=== PATIENT | female | born 1945 | race Caucasian/White ===

== ENCOUNTER 2019-08-04 10:48 | Outpatient (CLI) | payer MEDICARE, OTHER, SELFPAY ==
--- NOTE | 2019-08-04 11:06 | MM_ITS ---
WS: [id number] BILATERAL DIGITAL DIAGNOSTIC MAMMOGRAM MAMMOGRAPHY WITH CAD CLINICAL INFORMATION: HX OF BREAST CA COMPARISON: August 02, 2018 TECHNIQUE: Bilateral CC, MLO, and ML views. FINDINGS: Scattered fibroglandular densities bilaterally. Prior postoperative changes upper outer right breast. No suspicious focal mass, asymmetry, calcifications, or architectural distortion. No evidence of ruthy gnancy. MM/[place] [id number] IMPRESSION: BI-RADS: 2-Benign FOLLOW UP: 1 Year Follow-up Recommend return to annual screening mammography.
== END 2019-08-04 10:49 | disposition home or self-care (01) ==
LOC: RADSHAW 10:54
PROVIDERS: Family Provider Family Medicine; PCP Family Medicine; Visit Provider Internal Medicine Hematology & Oncology
DX: Z85.3 Personal history of malignant neoplasm of breast (principal)
CPT/HCPCS: 77066

== ENCOUNTER 2019-12-14 07:00 | Outpatient (CLI) | payer MEDICARE, OTHER, SELFPAY ==
--- NOTE | 2019-12-14 07:13 | CT_ITS ---
WS: [id number] CT CHEST WITHOUT INTRAVENOUS CONTRAST HISTORY: Pulmonary nodule follow-up. History of breast cancer. TECHNIQUE: Contiguous 5 mm axial imaging performed on the thorax. Coronal and sagittal reformats are submitted. All CT scans at [facility] use at least one of these dose optimization techniq ues: automated exposure control; mA and/or kV adjustment per patient size (includes targeted exams wh ere dose is matched to clinical indication); or iterative reconstruction. CONTRAST: None DLP: 801.62 mGy.cm COMPARISON: 05/09/2019, 11/08/2018 and 11/02/2017, PET/CT 05/27/2019 Lungs and central airway: Increasing lobulated solid mass in the central RIGHT upper lobe now measure s 1.6 x 1.3 x 1.3 cm. This was positive on the PET/CT of 05/27/2019 but has significantly increased i n size. This central nodule is very close to the central segmental bronchi with encasement of adjacen t bronchi and pulmonary structures. The subsolid nodule described in the periphery of the RIGHT lower lobe continues to slowly increase in size now measuring maximum diameter of 1.5 cm. New subsolid nod ule measuring 7 mm in the central RIGHT upper lobe, image 24 series 3. There are additional scattered subsolid nodules which are very vague in the upper lobes bilaterally and not increasing in size. Sta ble 4 mm nodule, image 23 of series 3 in the RIGHT upper lobe. Pleura: Normal. No pleural effusion. Heart and pericardium: Normal size heart. No pericardial effusion. Mediastinum and katrina: RIGHT inferior paratracheal lymph node 11 mm is unchanged. No enlarging or new lymph nodes. Vessels: Ectatic atherosclerosis of the aorta. Ascending aorta measures 4.1 cm. Chest wall and lower neck: No soft tissue masses. Upper abdomen: Hepatic steatosis. Decreased attenuation nodule in the posterior RIGHT upper lobe albert ures 11 mm and stable. No adrenal mass. Osseous structures: Advanced degenerative spondylitic changes throughout the thoracic spine. CT/CT chest wo con [id number] IMPRESSION: 1. Significant increase in size of the central RIGHT upper lobe mass since the PET/CT of 05/27/2019 now measuring 1.6 x 1.3 x 1.3 cm. Consistent with a neopl asm. 2. Slight increase in size of the subsolid nodule previously described in the RIGHT lower lobe now with a maximum diameter of 1.5 cm. Increased in size from 0.8 cm. 3. New subsolid nodule RIGHT upper lobe measures 7 mm. Suspicious for neoplasm or metastatic disease. 4. Additional scattered subcentimeter and some solid nodules bilaterally are s table. 5. Chronic emphysema. 6. No adrenal mass. 7. No adenopathy.
[2019-12-14 08:33] VITALS: O2SAT 95
--- NOTE | 2019-12-14 09:47 | PFTS_ITS ---
Date of Study:12/14/19 Date of Dictation: MECHANICS: Forced vital capacity (FVC) is reduced. Forced expiratory volume in one second (FEV1) is reduced. FEV1/FVC is reduced. FLOW VOLUME LOOP: Reduced flow at all lung volumes with significant scooping. LUNG VOLUMES: Total lung capacity (TLC) is normal. Residual volume (RV) is increased. DIFFUSING CAPACITY FOR CARBON MONOXIDE: Mild reduced. INTERPRETATION: The pulmonary function tests are consistent with moderate obstruction. There is significant postbronchodilator response. Lung volumes are consistent with air trapping. Gas exchange (DLCO) is mildly reduced. MTDD
== END 2019-12-14 07:01 | disposition home or self-care (01) ==
PROVIDERS: PCP Family Medicine; Visit Provider Internal Medicine Critical Care Medicine
DX: J44.9 Chronic obstructive pulmonary disease, unspecified (principal); R91.8 Other nonspecific abnormal finding of lung field
CPT/HCPCS: 71250; 94060; 94726; 94729; J7611

== ENCOUNTER 2020-01-03 06:04 | Day surgery (SDC) | payer MEDICARE, OTHER, SELFPAY ==
[2020-01-02 08:00] VITALS: BMI 32.3
--- NOTE | 2020-01-03 | CT_ITS ---
Guided Bronchoscopy Planning CT images; total exam DLP: 579.97 mGy-cm MTDD
[2020-01-03 06:22] VITALS: BP 128/72; PULSE 64; RESP 18; TEMP 36.2; O2SAT 93
[2020-01-03] MEDS: sodium chloride 0.9% 1,000 ML 30 ML IV (06:30)
--- NOTE | 2020-01-03 06:34 | P.ANESASSM_ITS ---
Pre-Anesthetic Assessment Pre-Anesthetic Assessment: Height/Weight: Height 1.68 m Weight 90.718 kg Temp Pulse Resp BP Pulse Ox 97.2 F L 64 18 128/72 93 01/03/20 06:22 01/03/20 06:22 01/03/20 06:22 01/03/20 06:22 01/03/20 06:22 Preop Diagnosis: Suspected lung cancer Proposed Procedure: Operation Date: 01/03/20 07:00 Proposed Procedures p Antonio(Not Applicable) - Biplab MD Nyasia Familial anesthetic complications: None Was Beta Randy taken within 24 hours: N/A Last intake: Intake Last Liquid Date 01/02/20 Last Liquid Time 22:00 Last Solid Date 01/02/20 Last Solid Time 22:00 Social: Social History: Tobacco Exam: Pre-Anes Outpt Exam: alert, oriented x 3, clear to auscultation bilaterally and regular rate & rhythm Airway: Cervical ROM: WNL MP: 3 Dentition: False Pulmonary: Pulmonary: COPD (oxygen prn 2 L NC) and Sleep apnea (bipap) CV/HEM: CV/HEM: HTN : : None reported Hepatic: Hepatic: None reported GI: GI: None reported Metabolic: Metabolic: DM Musc/skel: Musc/skel: None reported Comments: bone grows between the discs in my back Neuropsych: Neuropsych: None reported Anesthetic Plan: ASA status: 3 Anesthesia: General Risk of > 500 ml blood loss (7ml/kg in children): No PFSH Anesthesia PFSH: Medical History (Updated 01/02/20 @ 08:03 by [employer] Lung nodule Social History (Updated 01/02/20 @ 08:03 by [employer] Smoking and tobacco status: current every day smoker cigarettes Packs smoked per day: 1 Data Anesthesia Cardiac Studies: No Data to Display
[2020-01-03 06:37] LABS: Glucose Point of Care 132 mg/dL (70-110)
--- NOTE | 2020-01-03 06:38 | W.PM.OPSFHP ---
Same Day Surgery H&P Indication for Procedure/HPI DATE OF PROCEDURE: January 03, 2020 CHIEF COMPLAINT/INDICATIONFOR SURGICAL PROCEDURE: 74-year-old lady coming in for enlarging right upper lobe pulmonary nodule with PET positivity for bronchoscopic evaluation. The patient underwent scheduled CT scan in December 2019 as a six-month follow-up and was found to have an enlarging right upper lobe pulmonary nodule. This was followed up with a PET scan which was positive. The patient was scheduled to undergo the procedure in mid December however because of an episode of upper respiratory tract infection the procedure was canceled. PREOP DIAGNOSIS: Suspected lung cancer PLANNED PROCEDRUE: Bronchoscopy with inspection of the airway, navigational bronchoscopy guided fine-needle aspiration and transbronchial biopsies of the right upper lobe nodule, endobronchial ultrasound-guided transbronchial aspiration of lymph nodes, control of bleeding. Operation Date: 01/03/20 07:00 Proposed Procedures p Vernicol(Not Applicable) - Shaila Murrell MD The patient underwent scheduled CT scan in December 2019 as a six-month follow-up and was found to have an enlarging right upper lobe pulmonary nodule. This was followed up with a PET scan which was positive. The patient was scheduled to undergo the procedure in mid December however because of an episode of upper respiratory tract infection the procedure was canceled. The patient denies any fever, night sweats, chills, orthopnea or proximal nocturnal dyspnea. She has chronic cough with sputum production. No significant wheezing and no resting shortness of breath. Medications/Allergies* Home Medications Medication Instructions Recorded Confirmed Type albuterol sulfate [ProAir HFA] 1 inh INHALATION BID 12/20/19 01/03/20 History amlodipine 5 mg PO DAILY 12/20/19 01/03/20 History metformin 500 mg PO DAILY 12/20/19 01/03/20 History sitagliptin [Januvia] 100 mg PO DAILY 12/20/19 01/03/20 History gabapentin 300 mg PO PRN PRN 01/02/20 01/03/20 History [id number]-[id number] 1 ea INHALATION DAILY 01/03/20 01/03/20 History [Trelegy Ellipta] Allergies/Adverse Reactions Allergy/AdvReac Type Severity Reaction Status Date / Time No Known Allergies Allergy Verified 01/03/20 06:41 Pertinent History/Comorbid Conditions* Medical History (Updated 12/14/19 @ 16:07 by Shaila Murrell MD) Lung nodule Hypertension Diabetes mellitus type 2 Social History Smoking and tobacco status: current every day smoker cigarettes Packs smoked per day: 1 Pertinent Exam Findings alert, oriented x 3, clear to auscultation bilaterally and regular rate & rhythm No abdominal tenderness, positive bowel sound No skin rash or joint abnormalities Recommendations Surgery/Procedure today Other Plans: The patient is going to undergo navigational bronchoscopy guided right upper lobe pulmonary nodule biopsies for possible lung cancer. Coding Level of Care Code Acute Medical Assistant Dermatology for [facility]
[2020-01-03] MEDS: lidocaine 1% INJ 20 mL XX (07:31)
--- NOTE | 2020-01-03 08:48 | PM.OP ---
Operative Report Date of procedure: January 03, 2020 Pre-op Diagnosis: Suspected lung cancer Post-op diagnosis: same Brief History: 74-year-old lady coming in with enlarging right upper lobe nodule which is PET positive for suspected lung malignancy. Procedure: Name of the procedure: Bronchoscopy with inspection of the airway, bronchoalveolar lavage, endobronchial ultrasound-guided transbronchial needle aspiration of lymph nodes, navigational bronchoscopy guided fine-needle aspiration of the right upper lobe pulmonary nodule and control of bleeding. Indication: Suspected lung cancer Anesthesia: General anesthesia. Local anesthesia: The shamar in the right and left mainstem bronchi were anesthetized with 1% lidocaine, 3 mL. Description of the procedure: The procedure was explained to the patient and the consent was obtained. The patient was brought to the OR. The patient underwent endotracheal intubation for general anesthesia. Following induction of general anesthesia, the bronchoscope was advanced through the ET tube. The lower trachea appeared to be normal. The shamar was sharp. The shamar, the right and left mainstem bronchi are anesthetized with 1% lidocaine. In a systematic manner bilateral bronchial tree was then examined. The bronchoscope was advanced into the left mainstem bronchus. The left upper lobe, lingula and left lower lobe bronchi were examined up to the third subsegmental level and no abnormalities were identified. There is no endobronchial lesion, active bleeding or mucous plug. The bronchoscope was then introduced into the right mainstem bronchus. The right upper lobe, right middle lobe and right lower lobe bronchi were examined up to the third subsegmental level and no abnormalities were identified. There was mucus throughout the lung. Using navigational bronchoscopy fine-needle aspiration of the right upper lobe nodule was performed. Multiple samples were obtained. Bronchoalveolar lavage was performed from the apical segment of right upper lobe. 60 mL of saline was instilled 10 mL of bloody fluid return. The endobronchial ultrasound was introduced through the ET tube. Transbronchial needle aspiration was performed from station 7 and 10. Samples: 1. Bronchoalveolar lavage specimen was sent for cytology. 2. The right upper lobe pulmonary nodule fine-needle aspiration was sent for cytology. 3. The transbronchial needle aspiration of the aforementioned lymph node groups were sent for cytology Complications: There was no immediate complications. The patient was extubated and brought to the PACU in stable condition. Chest x-ray: Pending Follow-up: 1. Please follow-up with me in 2 weeks time.
--- NOTE | 2020-01-03 08:53 | XR_ITS ---
WS: [id number] CHEST XRAY TECHNIQUE: Portable chest. CLINICAL INFORMATION: post bronchoscopy COMPARISON: January 17, 2018 FINDINGS: Heart: Cardiomegaly. Aortic calcification. Lungs: Chronic emphysematous changes with interstitial thickening unchanged from previous. No acute p ulmonary infiltrates. No focal pneumonia. No consolidation pleural fluid. Bones: Normal visualized bony structures. XR/XR chest 1V portable [id number] IMPRESSION: 1. Stable cardiomegaly. 2. Chronic emphysematous changes with interstitial thickening is stable. 3. No acute pulmonary infiltrates. 4. No pneumothorax
[2020-01-03 08:57] VITALS: BP 146/83; PULSE 82; RESP 20; TEMP 36.5; O2SAT 92
--- NOTE | 2020-01-03 09:02 | SUR.OPER ---
EBUS BALLOON REMOVED INTACT.
[2020-01-03 09:03] VITALS: PULSE 62; RESP 16; O2SAT 98
[2020-01-03 09:08] VITALS: PULSE 60; RESP 16; TEMP 36.5; O2SAT 95
[2020-01-03 09:22] VITALS: BP 104/69; PULSE 64; RESP 18; O2SAT 94
[2020-01-03 09:45] VITALS: BP 98/55; PULSE 51; RESP 18; O2SAT 95
== END 2020-01-03 09:52 | disposition home or self-care (01) ==
PROVIDERS: PCP Family Medicine; Visit Provider Internal Medicine Critical Care Medicine
PROC: 0BJ08ZZ Inspection of Tracheobronchial Tree, Via Natural or Artificial Opening Endoscopic (ICD-10-PCS; CPT 31622; principal; 2020-01-03 07:00)
PROC: BB4BZZZ Ultrasonography of Pleura (ICD-10-PCS; 2020-01-03 07:00)
DX: R91.8 Other nonspecific abnormal finding of lung field (principal); E11.9 Type 2 diabetes mellitus without complications; I10 Essential (primary) hypertension; Z79.84 Long term (current) use of oral hypoglycemic drugs; F17.210 Nicotine dependence, cigarettes, uncomplicated; J44.9 Chronic obstructive pulmonary disease, unspecified; G47.30 Sleep apnea, unspecified; Z99.81 Dependence on supplemental oxygen
CPT/HCPCS: 12345; 31625; 31627; 36416; 71045; 77011; 80500; 82962; 88112; 88173; 88305; J2001; J2704; J2710; J3010; J3490; J7030

== ENCOUNTER 2020-01-18 08:18 | Outpatient (CLI) | payer MEDICARE, OTHER, SELFPAY ==
--- NOTE | 2020-01-24 15:43 | ONC FU_ITS ---
Dr. 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 She underwent a right partial mastectomy by Dr. Neely on 07/12/2012. Her surgical pathology showed a 1.2 cm high-grade DCIS, ER negative, GA negative, HER-2/florian negative. She then received 6080 cGy adjuvant radiation treatment, completed on 09/29/2012. She did not receive hormonal chemoprevention. She was seen initially by Dr. Small on 08/08/2015 . Her last mammogram was 06/21/2015, BI-RADS 2c. She indicated that her prior primary care doctor, Dr. Reis, had been concerned about a solitary pulmonary nodule that reportedly was seen on a CT scan in January 2015. She is being followed on observation/expectant management. Her other medical illnesses include hypertension, type II diabetes, COPD, obstructive sleep apnea, degenerative arthritis, and anxiety/depression. She has a history of smoking 1 pack of cigarettes daily. Surveillance CT scan of the chest on 04/16/2016 showed a 5 mm right upper lobe pulmonary nodule which appeared stable since 2014. CT scan chest done on 02/02/2017 showed multiple noncalcified nodules in the right upper lobe 3 mm nodule right lower lobe semisolid 6 mm right lower lobe nodule and CT scan finding were discussed with Dr. Massey today and he said he don't see any significant difference when compared with CT scan of chest on 04/16/2016 except 3 mm nodule right lower lobe which is new CT scan of the chest done on 11/08/[address] scan of chest done on 11/02/2017 and 02/02/2017 showed stable right upper lobe 4 mm nodule. And slight increase in size of right lower lobe opacification/groundglass attenuation since 11/02/2017, one of the nodule has become more solid measuring 7.7 mm could be post inflammatory but early neoplastic changes should be considered. Chronic emphysema no lymphadenopathy follow-up CT scan chest recommended in 3-6 months. Follow-up Mammogram done in June 2018, was benign CT chest was done on 05/09/2019 showed semisolid groundglass nodule in the right lower lobe laterally measuring 8mm slightly more prominent compared to 11/08/2018 and definitely increased since 11/02/2017, increase in sizes suspicious for neoplasm and Patient was referred to Dr. Galo for right lower lobe lung nodule and Dr. Galo order CT PET scan which was done on May 27, 2019 showed there is a 9 mm nodule in the central right upper lobe with SUV of 4.5 and has a high probability of malignancy biopsy was recommended. 2 semisolid nodules in the lateral right lower lobe are FDG negative and dominant nodule measured 0.8 x 1.4 cm, Dr. Galo referred her to Dr. Murrell programs manager who did evaluation and patient underwent follow-up CT scan of chest on December 14, 2019 which showed increasing lobulated solid mass in the central right upper lobe of the lung which measures 1.6 x 1.3 x 1.3 cm compared to 0.9 cm in May 2019 and right lower lobe nodule also continues to slowly increase in size measured 1.5 cm. And new sub-solid nodule measuring 7 mm in the central right upper lobe. Subsequently on December 16, [address] PET scan which confirmed central right upper lobe nodule measuring 1.4 cm with SUV of 15.7 compared to 0.9 cm with SUV of 4.5 seen on May 27, 2019 CT PET scan and semisolid nodule in the right lower lobe is unchanged in size and remained FDG negative. There is a new solid 8 mm nodule in the right upper lobe, too small to characterize with FDG imaging. Patient underwent bronchoscopy on January 03, 2020 and multiple samples were obtained including station 7 lymph node station 10 R lymph node, right upper lobe and all of them came back negative for malignancy Came for follow-up, denies any specific complaints, no hemoptysis no hematemesis, no nausea no vomiting no diarrhea no constipation, no headaches, no shortness of breath, no jaundice, still smoke about a pack a day. Patient recently underwent bronchoscopy for progressive right upper lobe lung nodule and that report came back negative for malignancy Medications: Aleve Capsule Oral, AmLODIPine Besylate 1 Tablet (of 5 mg) Oral daily, Bystolic 1 Tablet (of 5 mg) Oral daily, Gabapentin 1 Capsule (of 300 mg) Oral b.i.d., Januvia 1 Tablet (of 100 mg) Oral daily, Lidoderm 1 patch(es) (of 5 %) Patch Topical daily, Sertraline HCl 1 Tablet (of 50 mg) Oral daily, Trelegy Ellipta 1 Puff(s) (of 100-62.5-25 mcg/inh) Aerosol Powder, Breath Activated Inhalation daily, Voltaren 2 G (of 1 %) Gel (jelly) Transdermal b.i.d. Allergies: Zostavax Review of Systems: Constitutional - She does have some fatigue, ENMT - No problems with hearing, no sore throat, no sinus drainage, Hematologic/Lymphatic - No abnormal bruising or bleeding, Respiratory - No shortness of breath, no cough, Cardiovascular - No angina pain. No palpitations, Gastrointestinal - No nausea, vomiting, diarrhea, GI bleeding, or constipation. No change in bowel habits, no heartburn or early satiety, Genitourinary (F) - No hematuria, dysuria, increased frequency, urgency, hesitancy or incontinence, Musculoskeletal - Pt reports chronic back pain, Integumentary - No chronic rashes, ulcerations or skin changes, Neurologic - No headache, blurred vision, and no areas of focal weakness or numbness. Normal gait. No sensory problems, Psychiatric - No anxiety or depression. No insomnia. Vital Signs: Vitals are not available for this patient. Performance Status: 1 - No physically strenuous activity, but ambulatory and able to carry out light or sedentary work (e.g. office work, light house work). (ECOG) Physical Examination: Respiratory - Lungs are clear, Cardiovascular - Regular rate and rhythm of heart, Gastrointestinal - Soft, bowel sounds present, Extremities - No visible edema. Lab/Imaging: Most recent lab results are not available for this patient. Impression: 1. Patient with high-grade ductal carcinoma in situ of the right breast, ER/GA negative. She underwent partial right mastectomy on 07/12/2012. 2. She was given radiation to the right breast, completed on 09/29/2012 to a total dose of 6080 cGy. She has since then been followed on observation/expectant management. 3. She was discovered to have a small right upper lobe pulmonary nodule by chest CT scan in January 2015. Thus far it has been stable on followup CT scans in September and April 2016. 4. CT scan done on 02/02/2017 showed multiple noncalcified nodules in the right upper lobe 3 mm nodule right lower lobe semisolid 6 mm right lower lobe nodule when compared with previous CT scan of chest from 04/16/2016 no significant change but new 3mm lesion in the right lower CT scan of chest done on 11/02/2017 showed, stable 4.5 mm nodule right upper lobe. So resolved previous lateral subpleural groundglass density right upper lobe laterally since 02/02/2017 Stable ill-defined groundglass densities in the lateral peripheral right lower lobe Chronic emphysema Oval nodule left adrenal gland without change suggestive of incidental adenoma measuring 1.5 cm Follow-up CT scan of chest done on 11/08/2018 showed long-term stability right upper lobe 4 mm nodule Slight increase in size of right lower lobe opacifications/groundglass attenuation since 11/02/2017. One of these nodule has become more solid measuring 7.7 mm. Could be postinflammatory but early neoplastic changes should be considered and follow-up CT scan in 3-6 month was recommended. Chronic emphysema No lymphadenopathy Her other medical illnesses include: 4. Hypertension. 5. Type II diabetes. 6. COPD. 7. Obstructive sleep apnea. 8. Degenerative arthritis. 9. Depression. 10. She has nicotine dependence (cigarettes). She appears stable clinically with no evidence of recurrence of the breast cancer. Plan: Discussed with patient regarding her CT PET scan report from December 16, [address] scan of the chest done on December 14, 2019 and bronchoscopy/biopsy reports, which showed no malignancy, could be due to missed target and other possibility could be chronic inflammation like sarcoidosis or chronic infection like fungal but malignancy is still on the top of the list. Case was also discussed with Dr. Murrell, programs manager this morning and Dr. Murrell recommended repeat bronchoscopy and try to get sample again from right upper lobe lung nodule as other options like CT-guided biopsy could be more invasive but less than surgical option. Other option will be observation and repeating CT scan or PET scan in 3 months and if there is a further progression then considering bronchoscopy or CT-guided biopsy or if new lesion with better accessibility. Dr. Murrell would call her back and discuss these options again, patient agreed for repeat bronchoscopy. If it shows malignancy, we will see her otherwise she will continue to follow-up with Dr. Murrell regarding pulmonary lesions and we will see her on as-needed basis Signed By: Roberto Meng M.D. <<Signature on File>>
== END 2020-01-18 08:19 | disposition home or self-care (01) ==
LOC: ONCMED 08:22
PROVIDERS: PCP Family Medicine; Visit Provider Internal Medicine Hematology & Oncology
DX: R91.1 Solitary pulmonary nodule (principal); Z85.3 Personal history of malignant neoplasm of breast; Z90.11 Acquired absence of right breast and nipple; Z92.3 Personal history of irradiation
CPT/HCPCS: 99214

== ENCOUNTER 2020-01-29 05:57 | Day surgery (SDC) | payer MEDICARE, OTHER, SELFPAY ==
[2020-01-26 11:02] VITALS: BMI 32.3
--- NOTE | 2020-01-29 | SC_ITS ---
Guided Bronchoscopy Planning CT images; total exam DLP: 800.09 mGy-cm MTDD
[2020-01-29] MEDS: sodium chloride 0.9% 1,000 ML 30 ML IV (06:30)
[2020-01-29 06:32] LABS: Glucose Point of Care 127 mg/dL (70-110)
[2020-01-29 06:38] VITALS: BP 152/83; PULSE 74; RESP 18; TEMP 36.6; O2SAT 96
--- NOTE | 2020-01-29 06:55 | W.PM.OPSUD ---
Surgery/Procedure H&P Update DATE OF PROCEDURE: January 29, 2020 DATE H&P PERFORMED: 01/03/20 H&P UPDATE INFORMATION: I have reviewed H&P completed within last 30 days, I have examined patient prior to procedure and No changes to prior documentation PREOP DIAGNOSIS: Suspected lung cancer PRIMARY INDICATION FOR PROCEDURE: 75-year-old lady with suspected right upper lobe lung cancer. PLANNED PROCEDURE: Bronchoscopy with inspection of the airway, navigational bronchoscopy guided fine-needle aspiration of right upper lobe lung nodule possible EBUS. Operation Date: 01/29/20 07:00 Proposed Procedures gage Alvarez(Not Applicable) - Shaila Murrell MD
--- NOTE | 2020-01-29 07:00 | ANES.PREANE2 ---
Pre-Anesthetic Assessment Pre-Anesthetic Assessment: Height/Weight: Height 1.68 m Weight 90.718 kg Preop Diagnosis: Suspected lung cancer Proposed Procedure: Operation Date: 01/29/20 07:00 Proposed Procedures gage Alvarez(Not Applicable) - Shaila Murrell MD Social: Social History: Tobacco and No alcohol Exam: Pre-Anes Outpt Exam: alert, oriented x 3 and regular rate & rhythm Additional Exam Findings (including area of procedure): BILAT WHEEZES Airway: Submandibular: WNL Cervical ROM: WNL MP: 1 Dentition: False (UPPER) and Other (TEETH [place]) History/ROS: No significant history except as noted Pulmonary: Pulmonary: COPD, MIRELES and Sleep apnea CV/HEM: CV/HEM: HTN : : None reported Hepatic: Hepatic: None reported GI: GI: GERD (controlled) Metabolic: Metabolic: DM and Morbid obesity Musc/skel: Musc/skel: Lower Back Pain and OA/DJD Neuropsych: Neuropsych: Neuropathy (feet) Anesthetic Plan: ASA status: 3 Anesthesia: Anesthesia Evaluation and General Risk of > 500 ml blood loss (7ml/kg in children): No PFSH Anesthesia PFSH: Medical History COPD (chronic obstructive pulmonary disease) History of COPD Hx of diabetes mellitus Hx of primary hypertension Lung nodule Surgical History Hx of bladder repair surgery Hx of carpal tunnel repair Hx of cataract extraction Hx of eye surgery Hx of hysterectomy Social History Smoking and tobacco status: current every day smoker cigarettes Packs smoked per day: 1 Data Anesthesia Other Labs: Laboratory Results - last 48 hr 01/29/20 06:25 POC Glucose 127 Cardiac Studies: No Data to Display
[2020-01-29] MEDS: lidocaine 1% INJ 20 mL XX (07:27)
--- NOTE | 2020-01-29 08:35 | P.OP_ITS ---
Operative Report Date of procedure: January 29, 2020 Pre-op Diagnosis: Suspected lung cancer Post-op diagnosis: same Brief History: 75-year-old lady with suspected right upper lobe lung cancer coming in for bronchoscopy evaluation Procedure: Name of the procedure: Bronchoscopy with inspection of the airway, bronchoalveolar lavage, navigational bronchoscopy guided fine-needle aspiration of the right upper lobe lung nodule. Control of bleeding Indication: Suspected lung cancer Anesthesia: General anesthesia. Local anesthesia: The shamar in the right and left mainstem bronchi were anesth etized with 1% lidocaine, 3 mL. Description of the procedure: The procedure was explained to the patient and the consent was obtained. The patient was brought to the OR. The patient underwent endotracheal intubation for general anesthesia. Following induction of general anesthesia, the bronchoscope was advanced through the ET tube. The lower trachea appeared to be normal. In a systematic manner bilateral bronchial tree was then examined. The bronchoscope was advanced into the left mainstem bronchus. There was no erythema,mucus or areas of cobblestoning. The left upper lobe, lingula and left lower lobe bronchi were examined up to the third subsegmental level and no abnormalities were identified. The bronchoscope was then introduced into the right mainstem bronchus. The right upper lobe, right middle lobe and right lower lobe bronchi were examined up to the third subsegmental level and no abnormalities were identified. Bronchoalveolar lavage was obtained from the right upper lobe apical segment. Using navigational bronchoscopy fine-needle aspiration was performed from the right upper lobe lung nodule. Samples: 1. The fine-needle aspiration was sent for cytology. 2. Bronchoalveolar lavage was sent for cytology. Complications: There was no immediate complications. The patient was extubated and brought to the PACU in stable condition. Follow-up: Please follow-up with me in 2 weeks time.
[2020-01-29 08:44] VITALS: BP 131/70; PULSE 76; RESP 22; TEMP 36.1; O2SAT 94
--- NOTE | 2020-01-29 08:47 | SUR.PHASEI ---
0844 PATIENT TO PACU FROM OR. RR EVEN AND UNLABORED. SPO2 94% ON NC AT 4L. PT DENIES PAIN.
--- NOTE | 2020-01-29 08:47 | SUR.OPER ---
EBUS SCOPE NOT USED
[2020-01-29 08:50] VITALS: BP 133/75; PULSE 76; RESP 18; O2SAT 95
[2020-01-29 08:55] VITALS: BP 121/68; PULSE 70; RESP 18; TEMP 36.3; O2SAT 95
[2020-01-29 08:56] VITALS: BP 114/67; PULSE 69; RESP 18; TEMP 36.1; O2SAT 93
--- NOTE | 2020-01-29 09:02 | SUR.PHASEI ---
0859 PATIENT TO OPS AT THIS TIME. RR EVEN AND UNLABORED. DENIES PAIN. PATIENT ASSISTED TO BSC IN OPS, GAIT STEADY.
[2020-01-29 09:40] VITALS: BP 122/68; PULSE 69; RESP 18; O2SAT 96
== END 2020-01-29 09:44 | disposition home or self-care (01) ==
PROVIDERS: PCP Family Medicine; Visit Provider Internal Medicine Critical Care Medicine
PROC: 0BJ08ZZ Inspection of Tracheobronchial Tree, Via Natural or Artificial Opening Endoscopic (ICD-10-PCS; CPT 31622; principal; 2020-01-29 07:00)
DX: R91.1 Solitary pulmonary nodule (principal); J44.9 Chronic obstructive pulmonary disease, unspecified; I10 Essential (primary) hypertension; K21.9 Gastro-esophageal reflux disease without esophagitis; E66.01 Morbid (severe) obesity due to excess calories; Z68.32 Body mass index [BMI] 32.0-32.9, adult; M19.90 Unspecified osteoarthritis, unspecified site; E11.40 Type 2 diabetes mellitus with diabetic neuropathy, unspecified; F17.210 Nicotine dependence, cigarettes, uncomplicated
CPT/HCPCS: 12345; 31625; 31627; 36416; 77011; 80500; 82962; 88112; 88173; 88305; J1100; J2405; J2704; J2710; J3010; J3490; J7030

== ENCOUNTER 2020-03-18 10:37 | Outpatient (CLI) | payer MEDICARE, OTHER, SELFPAY ==
--- NOTE | 2020-03-18 11:00 | CT_ITS ---
WS: [id number] CT CHEST TECHNIQUE: Noncontrast CT of the chest with coronal and sagittal reformatted images. CLINICAL INFORMATION: Lung nodule COMPARISON: CT chest December 14, [address] December 16, 2019 DLP: 1063.[address] scans at [facility] use at least one of these dose optimization techniques: automat ed exposure control; mA and/or kV adjustment per patient size (includes targeted exams where dose is matched to clinical indication); or iterative reconstruction. FINDINGS: FDG avid right upper lobe suprahilar neoplasm unchanged since December 14, 2019 measuring 1.4 x 1.4 CCM. However there are multiple new noncalcified nodules in both lungs worse in the upper lobes bilaterall y. Most of these are semisolid in appearance with the largest measuring 6 mm suspicious for metastati c disease. Stable 1.6 cm FDG negative semisolid opacity in the right lower lobe. Prominent anterior mediastinal lymph node measuring 11 mm unchanged. Aortic calcification. Coronary c alcification. Adrenal glands are normal. Low-attenuation lesion right hepatic lobe medially nonspecif ic but likely hepatic cyst appears unchanged. CT/CT chest wo con [id number] IMPRESSION: 1. Stable right suprahilar suspected neoplasm previously shown to be FDG posit esteban measuring 1.4 x 1.4 CM. 2. Numerous new pulmonary opacities bilaterally subcentimeter in size suspicio us for metastatic disease. Largest opacities measure 5 to 6 mm. 3. Stable prominent 11 mm anterior mediastinal lymph node. No progressed lymph adenopathy. 4. No other significant interval changes.
== END 2020-03-18 10:38 | disposition home or self-care (01) ==
LOC: RADWPI 10:42
PROVIDERS: PCP Family Medicine; Visit Provider Internal Medicine Critical Care Medicine
DX: R91.1 Solitary pulmonary nodule (principal)
CPT/HCPCS: 71250

== ENCOUNTER 2020-04-05 08:50 | Outpatient (CLI) | payer MEDICARE, OTHER, SELFPAY ==
--- NOTE | 2020-04-05 12:29 | ONC FU_ITS ---
Dr. 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 She underwent a right partial mastectomy by Dr. Neely on 07/12/2012. Her surgical pathology showed a 1.2 cm high-grade DCIS, ER negative, MD negative, HER-2/florian negative. She then received 6080 cGy adjuvant radiation treatment, completed on 09/29/2012. She did not receive hormonal chemoprevention. She was seen initially by Dr. Small on 08/08/2015 . Her last mammogram was 06/21/2015, BI-RADS 2c. She indicated that her prior primary care doctor, Dr. Reis, had been concerned about a solitary pulmonary nodule that reportedly was seen on a CT scan in January 2015. She is being followed on observation/expectant management. Her other medical illnesses include hypertension, type II diabetes, COPD, obstructive sleep apnea, degenerative arthritis, and anxiety/depression. She has a history of smoking 1 pack of cigarettes daily. Surveillance CT scan of the chest on 04/16/2016 showed a 5 mm right upper lobe pulmonary nodule which appeared stable since 2014. CT scan chest done on 02/02/2017 showed multiple noncalcified nodules in the right upper lobe 3 mm nodule right lower lobe semisolid 6 mm right lower lobe nodule and CT scan finding were discussed with Dr. Massey today and he said he don't see any significant difference when compared with CT scan of chest on 04/16/2016 except 3 mm nodule right lower lobe which is new CT scan of the chest done on 11/08/[address] scan of chest done on 11/02/2017 and 02/02/2017 showed stable right upper lobe 4 mm nodule. And slight increase in size of right lower lobe opacification/groundglass attenuation since 11/02/2017, one of the nodule has become more solid measuring 7.7 mm could be post inflammatory but early neoplastic changes should be considered. Chronic emphysema no lymphadenopathy follow-up CT scan chest recommended in 3-6 months. Follow-up Mammogram done in June 2018, was benign CT chest was done on 05/09/2019 showed semisolid groundglass nodule in the right lower lobe laterally measuring 8mm slightly more prominent compared to 11/08/2018 and definitely increased since 11/02/2017, increase in sizes suspicious for neoplasm and Patient was referred to Dr. Galo for right lower lobe lung nodule and Dr. Galo order CT PET scan which was done on May 27, 2019 showed there is a 9 mm nodule in the central right upper lobe with SUV of 4.5 and has a high probability of malignancy biopsy was recommended. 2 semisolid nodules in the lateral right lower lobe are FDG negative and dominant nodule measured 0.8 x 1.4 cm, Dr. Galo referred her to Dr. Murrell online marketing coordinator who did evaluation and patient underwent follow-up CT scan of chest on December 14, 2019 which showed increasing lobulated solid mass in the central right upper lobe of the lung which measures 1.6 x 1.3 x 1.3 cm compared to 0.9 cm in May 2019 and right lower lobe nodule also continues to slowly increase in size measured 1.5 cm. And new sub-solid nodule measuring 7 mm in the central right upper lobe. Subsequently on December 16, [address] PET scan which confirmed central right upper lobe nodule measuring 1.4 cm with SUV of 15.7 compared to 0.9 cm with SUV of 4.5 seen on May 27, 2019 CT PET scan and semisolid nodule in the right lower lobe is unchanged in size and remained FDG negative. There is a new solid 8 mm nodule in the right upper lobe, too small to characterize with FDG imaging. Patient underwent bronchoscopy on January 03, 2020 and multiple samples were obtained including station 7 lymph node station 10 R lymph node, right upper lobe and all of them came back negative for malignancy, Patient underwent follow-up CT scan of chest on March 18, 2020 which showed stable right suprahilar suspected neoplasm previously seen on CT PET scan 1.4 x 1.4 cm. Numerous new pulmonary opacities bilaterally subcentimeter in size suspicious for metastatic disease largest opacities measuring 5 to 6 mm. Stable prominent 11 mm anterior mediastinal lymph node. No progressed lymphadenopathy. No other significant interval changes. Stable 1.6 cm FDG negative semisolid opacity in the right lower lobe, Patient was seen by Dr. Murrell online marketing coordinator who referred her to [place] for lung biopsy Came for follow-up, denies any specific complaints, no fever chills, no nausea or vomiting, no diarrhea constipation, no hemoptysis or hematemesis, no new bony pains. Patient is anxious about getting another lung biopsy in [place], thus reason she is here to discuss. Medications: Aleve Capsule Oral, AmLODIPine Besylate 1 Tablet (of 5 mg) Oral daily, Bystolic 1 Tablet (of 5 mg) Oral daily, Gabapentin 1 Capsule (of 300 mg) Oral b.i.d., Januvia 1 Tablet (of 100 mg) Oral daily, Lidoderm 1 patch(es) (of 5 %) Patch Topical daily, metFORMIN HCl 1 Tablet (of 500 mg) Oral b.i.d., Sertraline HCl 1 Tablet (of 50 mg) Oral daily, Trelegy Ellipta 1 Puff(s) (of 100-62.5-25 mcg/inh) Aerosol Powder, Breath Activated Inhalation daily, Voltaren 2 G (of 1 %) Gel (jelly) Transdermal b.i.d. Allergies: Zostavax Review of Systems: Constitutional - She does have some fatigue, ENMT - No problems with hearing, no sore throat, no sinus drainage, Hematologic/Lymphatic - No abnormal bruising or bleeding, Respiratory - No shortness of breath, no cough, Cardiovascular - No angina pain. No palpitations, Gastrointestinal - No nausea, vomiting, diarrhea, GI bleeding, or constipation. No change in bowel habits, no heartburn or early satiety, Genitourinary (F) - No hematuria, dysuria, increased frequency, urgency, hesitancy or incontinence, Musculoskeletal - Pt reports chronic back pain, Integumentary - No chronic rashes, ulcerations or skin changes, Neurologic - No headache, blurred vision, and no areas of focal weakness or numbness. Normal gait. No sensory problems, Psychiatric - No anxiety or depression. No insomnia. Vital Signs: Performed on Apr 05, 2020 09:22 Height - 66.00 in Weight - 199.2 lbs (LOW) BSA - 2.00 sq.m BMI - 32.15 (HIGH) Temperature - 97.1 F (LOW) Pulse - 78 /min Respiration - 24 /min BP - 137/65 mm(hg) O2 Sat - 94 % (LOW) Pain - 0 Performance Status: 0 - Fully active, able to carry on all predisease activities without restrictions. (ECOG) Physical Examination: Respiratory - Lungs are clear to auscultation, Cardiovascular - Regular rate and rhythm of heart, Gastrointestinal - Soft, bowel sounds present, Extremities - No visible edema, no rash. Lab/Imaging: Most recent lab results are not available for this patient. Impression: 1. Patient with high-grade ductal carcinoma in situ of the right breast, ER/MD negative. She underwent partial right mastectomy on 07/12/2012. 2. She was given radiation to the right breast, completed on 09/29/2012 to a total dose of 6080 cGy. She has since then been followed on observation/expectant management. 3. She was discovered to have a small right upper lobe pulmonary nodule by chest CT scan in January 2015. Thus far it has been stable on followup CT scans in September and April 2016. 4. CT scan done on 02/02/2017 showed multiple noncalcified nodules in the right upper lobe 3 mm nodule right lower lobe semisolid 6 mm right lower lobe nodule when compared with previous CT scan of chest from 04/16/2016 no significant change but new 3mm lesion in the right lower CT scan of chest done on 11/02/2017 showed, stable 4.5 mm nodule right upper lobe. So resolved previous lateral subpleural groundglass density right upper lobe laterally since 02/02/2017 Stable ill-defined groundglass densities in the lateral peripheral right lower lobe Chronic emphysema Oval nodule left adrenal gland without change suggestive of incidental adenoma measuring 1.5 cm Follow-up CT scan of chest done on 11/08/2018 showed long-term stability right upper lobe 4 mm nodule Slight increase in size of right lower lobe opacifications/groundglass attenuation since 11/02/2017. One of these nodule has become more solid measuring 7.7 mm. Could be postinflammatory but early neoplastic changes should be considered and follow-up CT scan in 3-6 month was recommended. Chronic emphysema No lymphadenopathy Her other medical illnesses include: 4. Hypertension. 5. Type II diabetes. 6. COPD. 7. Obstructive sleep apnea. 8. Degenerative arthritis. 9. Depression. 10. She has nicotine dependence (cigarettes). She appears stable clinically with no evidence of recurrence of the breast cancer. Plan: Discussed with patient regarding her follow-up CT scan of chest Dr. Murrell done on March 18, 2020 which showed stable right suprahilar suspect neoplasm compared with CT scan of chest done on December 14, 2019, measures 1.4 x 1.4 cm, stable prominent 11 mm anterior mediastinal lymph node, no progressive lymphadenopathy, stable 1.6 cm FDG negative semisolid opacity in the right lower lobe. Numerous new pulmonary opacities bilaterally subcentimeter in size suspicious for metastatic disease largest opacity measuring 5 to 6 mm. Clinically patient has no new signs symptoms but she is anxious about lung biopsy to be done in [place], as per patient her last 2 biopsies were negative and so convinced that she may not have any malignancy, patient was reassured and was informed that there is a possibility the last 2 biopsy may have missed the target and is worth discussing pros and cons with interventional radiologist in [place] and with Dr. Murrell, in case patient has any doubts. Patient says she will discuss with Dr. Murrell and physician in [place]. We will continue to monitor her on as-needed basis unless biopsy shows malignancy. Signed By: Roberto Meng M.D. <<Signature on File>>
== END 2020-04-05 08:51 | disposition home or self-care (01) ==
LOC: ONCMED 08:53
PROVIDERS: PCP Family Medicine; Visit Provider Internal Medicine Hematology & Oncology
DX: D05.11 Intraductal carcinoma in situ of right breast (principal); Z17.1 Estrogen receptor negative status [ER-]; I10 Essential (primary) hypertension; E11.9 Type 2 diabetes mellitus without complications; J44.9 Chronic obstructive pulmonary disease, unspecified; G47.33 Obstructive sleep apnea (adult) (pediatric); M19.90 Unspecified osteoarthritis, unspecified site; F41.9 Anxiety disorder, unspecified; F32.9 Major depressive disorder, single episode, unspecified; R91.1 Solitary pulmonary nodule; F17.210 Nicotine dependence, cigarettes, uncomplicated; Z92.3 Personal history of irradiation
CPT/HCPCS: G0463

== ENCOUNTER → 2020-05-05 09:10 | Outpatient (BNVA) | payer MEDICARE, OTHER, SELFPAY | PROVIDERS: PCP Family Medicine; Visit Provider Internal Medicine Critical Care Medicine | DX: Z11.59 Encounter for screening for other viral diseases (principal); J44.9 Chronic obstructive pulmonary disease, unspecified | CPT/HCPCS: 87635 ==

== ENCOUNTER 2020-06-05 11:18 | Outpatient (CLI) | payer MEDICARE, OTHER, SELFPAY ==
[2020-06-05 12:00] LABS: Basophils # 0.1 10^3/uL (0.0-0.1); Basophils % 0.6 %; Eosinophils # 0.2 10^3/uL (0.0-0.8); Eosinophils % 3.1 %; Hematocrit 42.6 % (37.0-47.0); Hemoglobin 13.7 g/dL (11.5-15.3); Lymphocytes % 26.2 %; Mean Corpuscular HGB Conc 32.2 g/dL (30.0-36.0); Mean Corpuscular Hemoglobin 29.3 pg (28.0-34.0); Mean Corpuscular Volume 91.2 fL (81-99); Mean Platelet Volume 10.5 fL (7.4-10.4); Monocytes # 0.7 10^3/uL (0.2-0.9); Neutrophils # 4.73 10^3/uL (1.8-7.7); Nucleated Red Blood Cells % 0 %; Platelet Count 219 10^3/cmm (130-400); Red Blood Count 4.67 10^6/uL (4.1-5.3); Red Cell Distribution Width 13.3 % (12.1-15.1); White Blood Count 7.8 10^3/uL (4.0-10.0)
[2020-06-05 12:23] LABS: Alanine Aminotransferase 15 U/L (0-33); Albumin Level 4.1 g/dL (3.5-5.2); Alkaline Phosphatase 88 IU/L (35-105); Anion Gap 11.9 (5-19); Aspartate Amino Transferase 17 U/L (0-32); Blood Urea Nitrogen 12 mg/dL (8-23); Calcium 9.4 mg/dL (8.5-10.5); Carbon Dioxide 31 mmol/L (22-29); Chloride 102 mmol/L (98-107); Globulin 3.5 g/dL (1.3-4.6); Glucose 112 mg/dL (65-115); Osmolality Calculated 293 mOsm/kg (285-295); Potassium 3.9 mmol/L (3.5-5.1); Sodium 141 mmol/L (136-145); Total Bilirubin 0.3 mg/dL (0.15-1.2); Total Protein 7.6 g/dL (6.6-8.7)
== END 2020-06-05 11:19 | disposition home or self-care (01) ==
LOC: ONCMED 11:21
PROVIDERS: PCP Family Medicine; Visit Provider Internal Medicine Hematology & Oncology
DX: C34.11 Malignant neoplasm of upper lobe, right bronchus or lung (principal); D05.11 Intraductal carcinoma in situ of right breast
CPT/HCPCS: 80053; 85025

== ENCOUNTER 2020-06-06 05:27 | Outpatient (CLI) | payer MEDICARE, OTHER, SELFPAY ==
--- NOTE | 2020-06-06 09:23 | ONC FU_ITS ---
Dr. 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 She underwent a right partial mastectomy by Dr. Neely on 07/12/2012. Her surgical pathology showed a 1.2 cm high-grade DCIS, ER negative, CT negative, HER-2/florian negative. She then received 6080 cGy adjuvant radiation treatment, completed on 09/29/2012. She did not receive hormonal chemoprevention. She was seen initially by Dr. Small on 08/08/2015 . Her last mammogram was 06/21/2015, BI-RADS 2c. She indicated that her prior primary care doctor, Dr. Reis, had been concerned about a solitary pulmonary nodule that reportedly was seen on a CT scan in January 2015. She is being followed on observation/expectant management. Her other medical illnesses include hypertension, type II diabetes, COPD, obstructive sleep apnea, degenerative arthritis, and anxiety/depression. She has a history of smoking 1 pack of cigarettes daily. Surveillance CT scan of the chest on 04/16/2016 showed a 5 mm right upper lobe pulmonary nodule which appeared stable since 2014. CT scan chest done on 02/02/2017 showed multiple noncalcified nodules in the right upper lobe 3 mm nodule right lower lobe semisolid 6 mm right lower lobe nodule and CT scan finding were discussed with Dr. Massey today and he said he don't see any significant difference when compared with CT scan of chest on 04/16/2016 except 3 mm nodule right lower lobe which is new CT scan of the chest done on 11/08/[address] scan of chest done on 11/02/2017 and 02/02/2017 showed stable right upper lobe 4 mm nodule. And slight increase in size of right lower lobe opacification/groundglass attenuation since 11/02/2017, one of the nodule has become more solid measuring 7.7 mm could be post inflammatory but early neoplastic changes should be considered. Chronic emphysema no lymphadenopathy follow-up CT scan chest recommended in 3-6 months. Follow-up Mammogram done in June 2018, was benign CT chest was done on 05/09/2019 showed semisolid groundglass nodule in the right lower lobe laterally measuring 8mm slightly more prominent compared to 11/08/2018 and definitely increased since 11/02/2017, increase in sizes suspicious for neoplasm and Patient was referred to Dr. Galo for right lower lobe lung nodule and Dr. Galo order CT PET scan which was done on May 27, 2019 showed there is a 9 mm nodule in the central right upper lobe with SUV of 4.5 and has a high probability of malignancy biopsy was recommended. 2 semisolid nodules in the lateral right lower lobe are FDG negative and dominant nodule measured 0.8 x 1.4 cm, Dr. Galo referred her to Dr. Murrell junior qa analyst who did evaluation and patient underwent follow-up CT scan of chest on December 14, 2019 which showed increasing lobulated solid mass in the central right upper lobe of the lung which measures 1.6 x 1.3 x 1.3 cm compared to 0.9 cm in May 2019 and right lower lobe nodule also continues to slowly increase in size measured 1.5 cm. And new sub-solid nodule measuring 7 mm in the central right upper lobe. Subsequently on December 16, [address] PET scan which confirmed central right upper lobe nodule measuring 1.4 cm with SUV of 15.7 compared to 0.9 cm with SUV of 4.5 seen on May 27, 2019 CT PET scan and semisolid nodule in the right lower lobe is unchanged in size and remained FDG negative. There is a new solid 8 mm nodule in the right upper lobe, too small to characterize with FDG imaging. Patient underwent bronchoscopy on January 03, 2020 and multiple samples were obtained including station 7 lymph node station 10 R lymph node, right upper lobe and all of them came back negative for malignancy, Patient underwent follow-up CT scan of chest on March 18, 2020 which showed stable right suprahilar suspected neoplasm previously seen on CT PET scan 1.4 x 1.4 cm. Numerous new pulmonary opacities bilaterally subcentimeter in size suspicious for metastatic disease largest opacities measuring 5 to 6 mm. Stable prominent 11 mm anterior mediastinal lymph node. No progressed lymphadenopathy. No other significant interval changes. Stable 1.6 cm FDG negative semisolid opacity in the right lower lobe, Patient was seen by Dr. Murrell junior qa analyst who referred her to [place] for lung biopsy And on May 09, 2020, patient underwent CT-guided right upper lobe lung biopsy and final pathology report came back invasive squamous cell carcinoma Came for follow-up, denies any specific complaints, chronic musculoskeletal pain, attributing to arthritis, no fever chills, no nausea or vomiting, no diarrhea or constipation, no hemoptysis or hematemesis, no dysphagia, no vaginal bleed, no dysphagia. Appetite is good. Still smoking about pack a day. As per patient she underwent CT-guided right lung biopsy and post biopsy. Was complicated with collapsed lung for which she stayed in the hospital for couple of days. Medications: Aleve Capsule Oral, AmLODIPine Besylate 1 Tablet (of 5 mg) Oral daily, Bystolic 1 Tablet (of 5 mg) Oral daily, Gabapentin 1 Capsule (of 300 mg) Oral b.i.d., Januvia 1 Tablet (of 100 mg) Oral daily, Lidoderm 1 patch(es) (of 5 %) Patch Topical daily, metFORMIN HCl 1 Tablet (of 500 mg) Oral b.i.d., Sertraline HCl 1 Tablet (of 50 mg) Oral daily, Trelegy Ellipta 1 Puff(s) (of 100-62.5-25 mcg/inh) Aerosol Powder, Breath Activated Inhalation daily, Voltaren 2 G (of 1 %) Gel (jelly) Transdermal b.i.d. Allergies: Zostavax Review of Systems: Constitutional - She does have some fatigue, ENMT - No problems with hearing, no sore throat, no sinus drainage, Hematologic/Lymphatic - No abnormal bruising or bleeding, Respiratory - No shortness of breath, no cough, Cardiovascular - No angina pain. No palpitations, Gastrointestinal - No nausea, vomiting, diarrhea, GI bleeding, or constipation. No change in bowel habits, no heartburn or early satiety, Genitourinary (F) - No hematuria, dysuria, increased frequency, urgency, hesitancy or incontinence, Musculoskeletal - Pt reports chronic back pain, Integumentary - No chronic rashes, ulcerations or skin changes, Neurologic - No headache, blurred vision, and no areas of focal weakness or numbness. Normal gait. No sensory problems, Psychiatric - No anxiety or depression. No insomnia. Vital Signs: Performed on Jun 06, 2020 08:07 Height - 66.00 in Weight - 198.0 lbs (LOW) BSA - 1.99 sq.m BMI - 31.96 (HIGH) Temperature - 97.7 F (LOW) Pulse - 80 /min Respiration - 18 /min BP - 136/70 mm(hg) O2 Sat - 95 % (LOW) Pain - 0 Performance Status: 0 - Fully active, able to carry on all predisease activities without restrictions. (ECOG) Physical Examination: Respiratory - Poor air entry otherwise clear, Cardiovascular - Regular rate and rhythm of heart, Gastrointestinal - Soft, bowel sounds present, Extremities - No visible edema or rash. Lab/Imaging: Test performed on Jun 05, 2020 11:27 Sodium 141 mmol/L Potassium 3.9 mmol/L Chloride 102 mmol/L CO2 31 mmol/L Anion Gap 11.9 BUN 12 mg/dL Creatinine 0.8 mg/dL Cr Clearance (Est) 85.3400 mL/min Glucose 112 mg/dL Osmolality - Calculated 293 mOsm/kg Calcium 9.4 mg/dL Protein, Total 7.6 g/dL Albumin 4.1 g/dL Globulin 3.5 g/dL Bilirubin, Total 0.3 mg/dL ALT (SGPT) 15 U/L AST (SGOT) 17 U/L Alkaline Phosphatase 88 IU/L WBC 7.8 10 3/uL RBC 4.67 10 6/uL HGB 13.7 g/dL HCT 42.6 % MCV 91.2 fL MCH 29.3 pg MCHC 32.2 g/dL RDW 13.3 % Platelet Count 219 10 3/cmm MPV 10.5 fL Neutrophils 4.73 10 3/uL Lymphocytes 2.0 10 3/uL Monocytes 0.7 10 3/uL Eosinophils 0.2 10 3/uL Basophils 0.1 10 3/uL Neutrophil % 61.0 % Lymphocyte % 26.2 % Monocyte % 9.0 % Eosinophil % 3.1 % Basophils % 0.6 % NRBC % 0 % Impression: Invasive squamous cell carcinoma per CT-guided right upper lobe lung biopsy done on May 09, 2020 Patient with h/o high-grade ductal carcinoma in situ of the right breast, ER/CT negative. She underwent partial right mastectomy on 07/12/2012. s/p radiation to the right breast, completed on 09/29/2012 to a total dose of 6080 cGy. She has since then been followed on observation/expectant management. She was discovered to have a small right upper lobe pulmonary nodule by chest CT scan in January 2015. Thus far it has been stable on followup CT scans in September and April 2016. 4. CT scan done on 02/02/2017 showed multiple noncalcified nodules in the right upper lobe 3 mm nodule right lower lobe semisolid 6 mm right lower lobe nodule when compared with previous CT scan of chest from 04/16/2016 no significant change but new 3mm lesion in the right lower CT scan of chest done on 11/02/2017 showed, stable 4.5 mm nodule right upper lobe. So resolved previous lateral subpleural groundglass density right upper lobe laterally since 02/02/2017 Stable ill-defined groundglass densities in the lateral peripheral right lower lobe Chronic emphysema Oval nodule left adrenal gland without change suggestive of incidental adenoma measuring 1.5 cm Follow-up CT scan of chest done on 11/08/2018 showed long-term stability right upper lobe 4 mm nodule Slight increase in size of right lower lobe opacifications/groundglass attenuation since 11/02/2017. One of these nodule has become more solid measuring 7.7 mm. Could be postinflammatory but early neoplastic changes should be considered and follow-up CT scan in 3-6 month was recommended. Chronic emphysema No lymphadenopathy Her other medical illnesses include: 4. Hypertension. 5. Type II diabetes. 6. COPD. 7. Obstructive sleep apnea. 8. Degenerative arthritis. 9. Depression. 10. She has nicotine dependence (cigarettes). She appears stable clinically with no evidence of recurrence of the breast cancer. Plan: Discussed with patient regarding her labs white blood count 7.8 hemoglobin 13.7 hematocrit 42.6 platelets 219,000 CMP within normal limits and her CT-guided lung biopsy report which showed invasive squamous cell carcinoma. Clinically, patient is doing well with no new signs symptoms except chronic musculoskeletal pain, attributing to her arthritis. Now with confirmed malignancy per CT-guided biopsy of right upper lobe lung nodule, will consider CT PET scan to assess disease status and if localized lesion, then considering her age and underlying COPD and comorbid conditions, will consult radiation oncology for role of SBRT on the other hand if CT PET scan shows extensive disease then will consider PD-L1 status as well as molecular profiling on the already obtained biopsy tissue. Patient will return to clinic after CT PET scan for further discussion. Signed By: Roberto Meng M.D. <<Signature on File>>
== END 2020-06-06 05:28 | disposition home or self-care (01) ==
LOC: ONCMED 05:31
PROVIDERS: PCP Family Medicine; Visit Provider Internal Medicine Hematology & Oncology
DX: C34.11 Malignant neoplasm of upper lobe, right bronchus or lung (principal); D05.11 Intraductal carcinoma in situ of right breast; J43.9 Emphysema, unspecified; I10 Essential (primary) hypertension; E11.9 Type 2 diabetes mellitus without complications; G47.33 Obstructive sleep apnea (adult) (pediatric); M19.90 Unspecified osteoarthritis, unspecified site; F32.9 Major depressive disorder, single episode, unspecified; F17.210 Nicotine dependence, cigarettes, uncomplicated; Z79.899 Other long term (current) drug therapy
CPT/HCPCS: 99214

== ENCOUNTER 2020-06-17 06:02 | Outpatient (CLI) | payer MEDICARE, OTHER, SELFPAY ==
[2020-06-17 14:52] LABS: Basophils # 0.1 10^3/uL (0.0-0.1); Basophils % 0.7 %; Eosinophils # 0.3 10^3/uL (0.0-0.8); Eosinophils % 3.3 %; Hemoglobin 13.8 g/dL (11.5-15.3); Lymphocytes % 24.5 %; Mean Corpuscular HGB Conc 31.4 g/dL (30.0-36.0); Mean Corpuscular Hemoglobin 29.4 pg (28.0-34.0); Mean Corpuscular Volume 93.6 fL (81-99); Mean Platelet Volume 10.4 fL (7.4-10.4); Monocytes # 0.7 10^3/uL (0.2-0.9); Monocytes % 9.1 %; Neutrophils # 5.03 10^3/uL (1.8-7.7); Neutrophils % 61.9 %; Nucleated Red Blood Cells % 0 %; Platelet Count 257 10^3/cmm (130-400); Red Cell Distribution Width 13.2 % (12.1-15.1); White Blood Count 8.1 10^3/uL (4.0-10.0)
[2020-06-17 15:20] LABS: Alanine Aminotransferase 13 U/L (0-33); Alkaline Phosphatase 91 IU/L (35-105); Anion Gap 14.9 (5-19); Aspartate Amino Transferase 16 U/L (0-32); Blood Urea Nitrogen 10 mg/dL (8-23); Calcium 9.5 mg/dL (8.5-10.5); Carbon Dioxide 29 mmol/L (22-29); Chloride 101 mmol/L (98-107); Globulin 3.7 g/dL (1.3-4.6); Glucose 169 mg/dL (65-115); Osmolality Calculated 295 mOsm/kg (285-295); Potassium 3.9 mmol/L (3.5-5.1); Sodium 141 mmol/L (136-145); Total Bilirubin 0.2 mg/dL (0.15-1.2); Total Protein 7.7 g/dL (6.6-8.7)
== END 2020-06-17 06:03 | disposition home or self-care (01) ==
LOC: ONCMED 06:04
PROVIDERS: PCP Family Medicine; Visit Provider Internal Medicine Hematology & Oncology
DX: C34.11 Malignant neoplasm of upper lobe, right bronchus or lung (principal); R91.1 Solitary pulmonary nodule; D05.11 Intraductal carcinoma in situ of right breast
CPT/HCPCS: 36415; 80053; 85025

== ENCOUNTER 2020-06-19 05:54 | Outpatient (CLI) | payer MEDICARE, OTHER, SELFPAY ==
--- NOTE | 2020-06-19 13:26 | ONC FU_ITS ---
Dr. 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 She underwent a right partial mastectomy by Dr. Neely on 07/12/2012. Her surgical pathology showed a 1.2 cm high-grade DCIS, ER negative, TN negative, HER-2/florian negative. She then received 6080 cGy adjuvant radiation treatment, completed on 09/29/2012. She did not receive hormonal chemoprevention. She was seen initially by Dr. Small on 08/08/2015 . Her last mammogram was 06/21/2015, BI-RADS 2c. She indicated that her prior primary care doctor, Dr. Reis, had been concerned about a solitary pulmonary nodule that reportedly was seen on a CT scan in January 2015. She is being followed on observation/expectant management. Her other medical illnesses include hypertension, type II diabetes, COPD, obstructive sleep apnea, degenerative arthritis, and anxiety/depression. She has a history of smoking 1 pack of cigarettes daily. Surveillance CT scan of the chest on 04/16/2016 showed a 5 mm right upper lobe pulmonary nodule which appeared stable since 2014. CT scan chest done on 02/02/2017 showed multiple noncalcified nodules in the right upper lobe 3 mm nodule right lower lobe semisolid 6 mm right lower lobe nodule and CT scan finding were discussed with Dr. Massey today and he said he don't see any significant difference when compared with CT scan of chest on 04/16/2016 except 3 mm nodule right lower lobe which is new CT scan of the chest done on 11/08/[address] scan of chest done on 11/02/2017 and 02/02/2017 showed stable right upper lobe 4 mm nodule. And slight increase in size of right lower lobe opacification/groundglass attenuation since 11/02/2017, one of the nodule has become more solid measuring 7.7 mm could be post inflammatory but early neoplastic changes should be considered. Chronic emphysema no lymphadenopathy follow-up CT scan chest recommended in 3-6 months. Follow-up Mammogram done in June 2018, was benign CT chest was done on 05/09/2019 showed semisolid groundglass nodule in the right lower lobe laterally measuring 8mm slightly more prominent compared to 11/08/2018 and definitely increased since 11/02/2017, increase in sizes suspicious for neoplasm and Patient was referred to Dr. Galo for right lower lobe lung nodule and Dr. Galo order CT PET scan which was done on May 27, 2019 showed there is a 9 mm nodule in the central right upper lobe with SUV of 4.5 and has a high probability of malignancy biopsy was recommended. 2 semisolid nodules in the lateral right lower lobe are FDG negative and dominant nodule measured 0.8 x 1.4 cm, Dr. Galo referred her to Dr. Murrell director of family service center who did evaluation and patient underwent follow-up CT scan of chest on December 14, 2019 which showed increasing lobulated solid mass in the central right upper lobe of the lung which measures 1.6 x 1.3 x 1.3 cm compared to 0.9 cm in May 2019 and right lower lobe nodule also continues to slowly increase in size measured 1.5 cm. And new sub-solid nodule measuring 7 mm in the central right upper lobe. Subsequently on December 16, [address] PET scan which confirmed central right upper lobe nodule measuring 1.4 cm with SUV of 15.7 compared to 0.9 cm with SUV of 4.5 seen on May 27, 2019 CT PET scan and semisolid nodule in the right lower lobe is unchanged in size and remained FDG negative. There is a new solid 8 mm nodule in the right upper lobe, too small to characterize with FDG imaging. Patient underwent bronchoscopy on January 03, 2020 and multiple samples were obtained including station 7 lymph node station 10 R lymph node, right upper lobe and all of them came back negative for malignancy, Patient underwent follow-up CT scan of chest on March 18, 2020 which showed stable right suprahilar suspected neoplasm previously seen on CT PET scan 1.4 x 1.4 cm. Numerous new pulmonary opacities bilaterally subcentimeter in size suspicious for metastatic disease largest opacities measuring 5 to 6 mm. Stable prominent 11 mm anterior mediastinal lymph node. No progressed lymphadenopathy. No other significant interval changes. Stable 1.6 cm FDG negative semisolid opacity in the right lower lobe, Patient was seen by Dr. Murrell director of family service center who referred her to [facility] for lung biopsy And on May 09, 2020, patient underwent CT-guided right upper lobe lung biopsy and final pathology report came back invasive squamous cell carcinoma Staging CT PET scan done on June 08, 2020 showed right upper lobe pulmonary mass measured 2.1 cm in diameter with SUV of 11.8 up from 1.4 cm with SUV of 15.7 on prior study done on December 16, 2019. A semisolid/groundglass opacity in the lateral right lower lobe is now larger at 1 x 2 cm but remains FDG negative. And 8 mm right upper lobe nodule is unchanged and remained FDG negative. Other subcentimeter nodules are unchanged from prior study. Came for follow-up, denies any specific complaints, no fever chills, no nausea or vomiting, no diarrhea constipation no hemoptysis or hematemesis but she is anxious about her CT PET scan report and findings, she is here to discuss further planning. Medications: Aleve Capsule Oral, AmLODIPine Besylate 1 Tablet (of 5 mg) Oral daily, Bystolic 1 Tablet (of 5 mg) Oral daily, Gabapentin 1 Capsule (of 300 mg) Oral b.i.d., Januvia 1 Tablet (of 100 mg) Oral daily, Lidoderm 1 patch(es) (of 5 %) Patch Topical daily, metFORMIN HCl 1 Tablet (of 500 mg) Oral b.i.d., Sertraline HCl 1 Tablet (of 50 mg) Oral daily, Trelegy Ellipta 1 Puff(s) (of 100-62.5-25 mcg/inh) Aerosol Powder, Breath Activated Inhalation daily, Voltaren 2 G (of 1 %) Gel (jelly) Transdermal b.i.d. Allergies: Zostavax Review of Systems: Constitutional - Appetite is good. Continues to have fatigue, ENMT - No problems with hearing, no sore throat, no sinus drainage, Hematologic/Lymphatic - No abnormal bruising or bleeding, Respiratory - Positive for shortness of breath, no cough, Cardiovascular - No angina pain. No palpitations, Gastrointestinal - No nausea, vomiting, diarrhea, GI bleeding, or constipation. No change in bowel habits, no heartburn or early satiety, Genitourinary (F) - No hematuria, dysuria, increased frequency, urgency, hesitancy or incontinence, Musculoskeletal - Pt reports chronic back pain, Integumentary - No chronic rashes, ulcerations or skin changes, Neurologic - No headache, blurred vision, and no areas of focal weakness or numbness. Normal gait. No sensory problems, Psychiatric - No anxiety or depression. No insomnia. Vital Signs: Performed on Jun 19, 2020 08:08 Height - 66.00 in Weight - 199.0 lbs (HIGH) BSA - 2.00 sq.m BMI - 32.12 (HIGH) Temperature - 97.0 F (LOW) Pulse - 73 /min Respiration - 18 /min BP - 132/70 mm(hg) O2 Sat - 94 % (LOW) Pain - 0 Performance Status: 0 - Fully active, able to carry on all predisease activities without restrictions. (ECOG) Physical Examination: Respiratory - Lungs are clear to auscultation, Cardiovascular - Regular rate and rhythm of heart, Gastrointestinal - Soft, bowel sounds present, Extremities - No visible edema. Lab/Imaging: Test performed on Jun 05, 2020 11:27 Sodium 141 mmol/L Potassium 3.9 mmol/L Chloride 102 mmol/L CO2 31 mmol/L Anion Gap 11.9 BUN 12 mg/dL Creatinine 0.8 mg/dL Cr Clearance (Est) 85.3400 mL/min Glucose 112 mg/dL Osmolality - Calculated 293 mOsm/kg Calcium 9.4 mg/dL Protein, Total 7.6 g/dL Albumin 4.1 g/dL Globulin 3.5 g/dL Bilirubin, Total 0.3 mg/dL ALT (SGPT) 15 U/L AST (SGOT) 17 U/L Alkaline Phosphatase 88 IU/L WBC 7.8 10 3/uL RBC 4.67 10 6/uL HGB 13.7 g/dL HCT 42.6 % MCV 91.2 fL MCH 29.3 pg MCHC 32.2 g/dL RDW 13.3 % Platelet Count 219 10 3/cmm MPV 10.5 fL Neutrophils 4.73 10 3/uL Lymphocytes 2.0 10 3/uL Monocytes 0.7 10 3/uL Eosinophils 0.2 10 3/uL Basophils 0.1 10 3/uL Neutrophil % 61.0 % Lymphocyte % 26.2 % Monocyte % 9.0 % Eosinophil % 3.1 % Basophils % 0.6 % NRBC % 0 % Impression: Invasive squamous cell carcinoma per CT-guided right upper lobe lung biopsy done on May 09, 2020 Patient with h/o high-grade ductal carcinoma in situ of the right breast, ER/TN negative. She underwent partial right mastectomy on 07/12/2012. s/p radiation to the right breast, completed on 09/29/2012 to a total dose of 6080 cGy. She has since then been followed on observation/expectant management. She was discovered to have a small right upper lobe pulmonary nodule by chest CT scan in January 2015. Thus far it has been stable on followup CT scans in September and April 2016. 4. CT scan done on 02/02/2017 showed multiple noncalcified nodules in the right upper lobe 3 mm nodule right lower lobe semisolid 6 mm right lower lobe nodule when compared with previous CT scan of chest from 04/16/2016 no significant change but new 3mm lesion in the right lower CT scan of chest done on 11/02/2017 showed, stable 4.5 mm nodule right upper lobe. So resolved previous lateral subpleural groundglass density right upper lobe laterally since 02/02/2017 Stable ill-defined groundglass densities in the lateral peripheral right lower lobe Chronic emphysema Oval nodule left adrenal gland without change suggestive of incidental adenoma measuring 1.5 cm Follow-up CT scan of chest done on 11/08/2018 showed long-term stability right upper lobe 4 mm nodule Slight increase in size of right lower lobe opacifications/groundglass attenuation since 11/02/2017. One of these nodule has become more solid measuring 7.7 mm. Could be postinflammatory but early neoplastic changes should be considered and follow-up CT scan in 3-6 month was recommended. Chronic emphysema No lymphadenopathy Her other medical illnesses include: 4. Hypertension. 5. Type II diabetes. 6. COPD. 7. Obstructive sleep apnea. 8. Degenerative arthritis. 9. Depression. 10. She has nicotine dependence (cigarettes). She appears stable clinically with no evidence of recurrence of the breast cancer. Plan: Discussed with patient regarding her CT PET scan report which showed right upper lobe pulmonary nodule which is 2.1 cm with SUV of 11.8 and biopsy-proven invasive squamous cell carcinoma. And other 2 lesions one in the lateral right lower lobe which is 1 x 2 cm and other is 8 mm right upper lobe both are FDG negative and other subcentimeter nodules are unchanged from prior study. So CT PET scan findings were discussed with patient as she has a single active lesion in the right upper lobe and her other lesions shows no FDG activity, we will refer her to radiation oncology for evaluation regarding SBRT. If considered, and see her back in 3 months.And also consider follow-up CT scan chest initially every 3 to 4 months if stable then every 6-month. Patient said she is following pulmonology Dr. Murrell on regular basis and who is following those nodules closely. Signed By: Roberto Meng M.D. <<Signature on File>>
== END 2020-06-19 05:55 | disposition home or self-care (01) ==
LOC: ONCMED 05:57
PROVIDERS: PCP Family Medicine; Visit Provider Internal Medicine Hematology & Oncology
DX: C34.11 Malignant neoplasm of upper lobe, right bronchus or lung (principal); D05.11 Intraductal carcinoma in situ of right breast; J43.9 Emphysema, unspecified; I10 Essential (primary) hypertension; E11.9 Type 2 diabetes mellitus without complications; G47.33 Obstructive sleep apnea (adult) (pediatric); M19.90 Unspecified osteoarthritis, unspecified site; F32.9 Major depressive disorder, single episode, unspecified; F17.210 Nicotine dependence, cigarettes, uncomplicated; Z79.899 Other long term (current) drug therapy
CPT/HCPCS: 99214

== ENCOUNTER 2020-07-03 06:24 | Outpatient (CLI) | payer MEDICARE, OTHER, SELFPAY ==
--- NOTE | 2020-07-03 10:00 | N.ONRAD NP_ITS ---
New Patient Consultation Patient Name: Dina Abrams Date of : 1945 Date of Service: 07/03/2020 Attending Physician: Ge Perez M.D. Dina Abrams was seen for consultation this morning regarding possible stereotactic ablative body radiotherapy for the management of her recently diagnosed non-small cell lung cancer. In summary, the patient has a history of multiple luminary nodules initially discovered during a surveillance thoracic CT scan performed in 2014. Repeat imaging performed in 2018 identified an increase in a right lower lobe pulmonary nodule. A PET CT ordered on May 27, 2019 demonstrated a 9 mm nodule in the right upper lobe pulmonary nodule with a maximum SUV of 4.5. A subsequent thoracic CT requested on December 14, 2019 identified the right upper lobe mass measuring 1.6 cm x 1.3 cm x 1.3 cm in addition to previously identified bilateral sub-centimeter nodules. A bronchoscopy executed on January 03, 2020 failed to diagnose a malignancy in the right upper lobe lesion. A CT-guided needle biopsy of the right upper lobe nodule effectuated at [facility] in [place], [place] on May 09, 2020 diagnosed an invasive squamous cell carcinoma. A repeat PET/CT completed on June 08, 2020 re-demonstrated the right upper lobe pulmonary nodule (now measuring 2.1 cm) with a maximum SUV of 11.8. The patient presents for evaluation in regard to stereotactic ablative body radiotherapy. The patient's past medical history is significant for COPD, GERD, hypertension, and [id number] diabetes mellitus.. Her previous surgical interventions include surgery, carpal tunnel repair, cataract excision, and hysterectomy. I have reviewed the patient's medication profile which is available in the electronic medical record. She denied drug allergies. The patient's family history was remarkable for lung cancer (father and brother). The patient was accompanied to this consultation by her . She described a tobacco habit of 1 1/2 pack per day for 58 years and denied drinking alcoholic beverages. On review of systems, she did not report any constitutional complaints including fevers of unknown origin or unintentional weight loss. There were no head neck complaints including diplopia, tinnitus, epistaxis, or dysphagia nor did she verbalize enlarged lymph nodes in the neck, armpit, or groin. She denied any cardiopulmonary symptoms such as angina or palpitations, but she did describe a persistent, productive cough and home oxygen (2 L). On gastrointestinal review, she disavowed dyspepsia, nausea or diarrhea. There were no genitourinary complaints including dysuria or hematuria. She disaffirmed any musculoskeletal complaints, namely bone pain or muscle weakness, as well as skin conditions suggestive of a rash. There were no neurological symptoms like headaches, paresthesias, or seizures. On physical examination, the patient has an ECOG performance status of 1. She was 5 ft 6 in tall and weighed 200 lbs. The temperature was 97.7???F. The blood pressure was 116/72 mmHg. The pulse was 72 bpm and the respiratory rate of was 18. Oxygen saturation while breathing room air was 94%. The head was normocephalic and atraumatic. Ophthalmology has bilateral red reflexes with sharp fundi. Otoscopy revealed bilateral skin flaking in the external auditory canal. Rhinoscopy demonstrated non-inflamed turbinates. The oral cavity had moist mucous membranes and no oropharyngeal exudate was present. A partial maxillary denture was present. There was no cervical adenopathy nor thyromegaly. Normal fremitus was noted with resonance to percussion elicited. Bronchovesicular breath sounds were present upon auscultation of the posterior lung casas with bilateral basilar rales. Cardiac sounds were regular in rate and rhythm. No auscultated gallops or murmurs present. No JVD noted. The abdomen had active bowel sounds. There was no tenderness to palpation nor evidence of organomegaly. I did not appreciate muscle weakness upon testing and there was no tenderness to deep palpation along the axial skeleton. Cranial nerves II through XII were intact. No sensory deficits were noted. Normal reflexes were present. Gait was normal. In summary, the patient has a history of multiple luminary nodules initially discovered during a surveillance thoracic CT scan performed in 2016. Repeat imaging performed in 2019 identified an increase in a right lower lobe pulmonary nodule. A PET CT ordered on May 27, 2019 demonstrated a 9 mm nodule in the right upper lobe pulmonary nodule with a maximum SUV of 4.5. A subsequent thoracic CT requested on December 14, 2019 identified the right upper lobe mass measuring 1.6 cm x 1.3 cm x 1.3 cm in addition to previously identified bilateral sub-centimeter nodules. A bronchoscopy executed on January 03, 2020 failed to diagnose a malignancy in the right upper lobe lesion. A CT-guided needle biopsy of the right upper lobe nodule effectuated at [facility] in [place], [place] on May 09, 2020 diagnosed an invasive squamous cell carcinoma. A repeat PET/CT completed on June 08, 2020 re-demonstrated the right upper lobe pulmonary nodule (now measuring 2.1 cm) with a maximum SUV of 11.8. The patient presents for evaluation in regard to stereotactic ablative body radiotherapy. I reviewed with the patient the AJCC clinical stage IA3 (T1cN0) compatible with her current disease. She is aware that the National Comprehensive Cancer Network Guidelines recommend surgical resection in operable patients with stage IA2 (T1BN0). However, for patients deemed medically inoperable without lymphadenopathy, stereotactic radiotherapy is preferable. I reviewed the RTOG 0236 phase II trial that enrolled peripheral T1 and T2 non-small cell lung cancer tumors and medical conditions precluding surgical treatment to SABR. The 3-year primary tumor local control of 91% with an overall median survival of 48 months. I also discussed the SPACE trial that randomized stage I non-small cell lung cancer patients to SABR or conventional fractionated radiotherapy. Progression free survival was improved and a significant decrement in adverse events were documented in the SABR treatment arm. Cardiothoracic consultation has been requested. If she is considered medically inoperable, SABR would be recommended. The patient has verbalized understanding and would like to proceed as recommended. Signed by: Dr. Ge Perez 07/03/2020 9:59:00 AM
== END 2020-07-03 06:25 | disposition home or self-care (01) ==
LOC: ONCMED 06:27
PROVIDERS: PCP Family Medicine; Visit Provider Radiology Radiation Oncology
DX: C34.11 Malignant neoplasm of upper lobe, right bronchus or lung (principal); F17.210 Nicotine dependence, cigarettes, uncomplicated; J44.9 Chronic obstructive pulmonary disease, unspecified; K21.9 Gastro-esophageal reflux disease without esophagitis; I10 Essential (primary) hypertension; E11.9 Type 2 diabetes mellitus without complications; Z80.1 Family history of malignant neoplasm of trachea, bronchus and lung
CPT/HCPCS: 99215

== ENCOUNTER 2020-08-02 05:35 | Outpatient (RCR) | payer MEDICARE, OTHER, SELFPAY ==
--- NOTE | 2020-07-17 | CT_ITS ---
Radiation Therapy Planning CT images; total exam DLP: 1378.36 mGy-cm MTDD
--- NOTE | 2020-07-31 13:58 | ONCRAD TMN_ITS ---
SABR Treatment Management Note Patient Name: Dina Abrams Date of : 1945 Date of Service: 07/31/2020 Attending Physician: Ge Perez M.D. Dina Abrams is a 75 year old white female diagnosed with stage IA3 (T1cN0) invasive squamous cell carcinoma of the right lower lobe of the lung. The patient has received 40 Gy of a prescribed 50 Caballero (SABR) delivered with an intensity modulated radiotherapy plan utilizing a step and shoot treatment technique. Upon review of systems, she denied any new pulmonary symptoms. On physical examination, the patient weighed 201 lbs. Her temperature was 97.7 ???F with a blood pressure of 121/78 mmHg. The pulse was 63 bpm and her respiratory rate was 20. Oxygen saturation while breathing ambient air was 97%. There was no erythema within the treatment casas. Auscultation of the posterior lung casas identified Bronchovesicular breath sounds bilaterally. Continue stereotactic ablative body radiotherapy as prescribed. Signed by: Dr. Ge Perez 07/31/2020 1:56:14 PM
== END 2020-08-04 23:59 | disposition home or self-care (01) ==
LOC: ONCMED 05:35
PROVIDERS: PCP Family Medicine; Visit Provider Radiology Radiation Oncology
DX: Z51.0 Encounter for antineoplastic radiation therapy (principal); C34.11 Malignant neoplasm of upper lobe, right bronchus or lung; D05.11 Intraductal carcinoma in situ of right breast; Z17.1 Estrogen receptor negative status [ER-]; R91.1 Solitary pulmonary nodule
CPT/HCPCS: 77300; 77301; 77334; 77338; 77373; 77470; Q9967

== ENCOUNTER 2020-08-05 09:00 | Outpatient (CLI) | payer MEDICARE, OTHER, SELFPAY | END 2020-08-06 09:01 | disposition home or self-care (01) | PROVIDERS: PCP Family Medicine; Visit Provider Radiology Radiation Oncology | DX: C34.11 Malignant neoplasm of upper lobe, right bronchus or lung (principal) | CPT/HCPCS: 77336 ==

== ENCOUNTER 2020-08-30 06:21 | Outpatient (RCR) | payer MEDICARE, OTHER, SELFPAY ==
--- NOTE | 2020-08-30 10:56 | ONCRAD EPV_ITS ---
Radiation Oncology Follow-Up Note Patient Name: Dina Abrams Date of : 1945 Date of Service: 08/30/2020 Attending Physician: Ge Perez M.D. Dina Abrams returned to my office this morning for a routinely scheduled follow-up appointment. She completed stereotactic ablative body radiotherapy in July for the management of a clinical stage IA3 (T1cN0) invasive squamous cell carcinoma of the right lower lobe of the lung. SABR was delivered between the dates of July 23, 2020 through August 02, 2020. A prescribed dose of 50 Gy was delivered in five fractions encompassing 11 elapsed days. On review of systems, the patient denied any pulmonary complaints. On physical examination, she weighed 202 lbs. The temperature was 98.1???F. Her blood pressure was 119/67 mmHg. The pulse was 76 bpm and the respiratory rate was 20 breaths per minute. The oxygen saturation while breathing ambient are was 95%. Left sided rales were present. In summary, Ms. Abrams returned for a routine post-radiotherapy follow-up. She will be scheduled for CT imaging for treatment response. Signed by: Dr. Ge Perez 08/30/2020 10:55:47 AM
== END 2020-09-01 23:59 | disposition home or self-care (01) ==
LOC: ONCMED 06:21
PROVIDERS: PCP Family Medicine; Visit Provider Radiology Radiation Oncology
DX: C34.31 Malignant neoplasm of lower lobe, right bronchus or lung (principal); Z92.3 Personal history of irradiation
CPT/HCPCS: 77336; 99024

== ENCOUNTER 2020-09-02 07:46 | Outpatient (CLI) | payer MEDICARE, OTHER, SELFPAY ==
--- NOTE | 2020-09-02 07:49 | MM_ITS ---
WS: [id number] BILATERAL DIGITAL DIAGNOSTIC MAMMOGRAM MAMMOGRAPHY WITH CAD CLINICAL INFORMATION: HX OF BREAST CA HISTORY: COMPARISON: August 04, 2019 TECHNIQUE: Bilateral CC, MLO, and ML views. FINDINGS: The breasts are composed of heterogeneous fibroglandular density, which can limit the detection of sm all underlying mass lesions. Punctate and eggshell calcifications. Stable clustered calcifications ri ght breast. Prior Postoperative changes upper outer right breast. No suspicious focal mass, asymmetry, calcifications, or architectural distortion. No evidence of ruthy gnancy. MM/[place] [id number] IMPRESSION: BI-RADS: 2-Benign FOLLOW UP: 1 Year Follow-up Recommend return to annual diagnostic mammography.
== END 2020-09-02 07:47 | disposition home or self-care (01) ==
LOC: RADSHAW 07:47
PROVIDERS: PCP Family Medicine; Visit Provider Internal Medicine Hematology & Oncology
DX: Z85.3 Personal history of malignant neoplasm of breast (principal)
CPT/HCPCS: 77066

== ENCOUNTER 2020-10-08 09:31 | Outpatient (CLI) | payer MEDICARE, OTHER, SELFPAY ==
--- NOTE | 2020-10-08 10:42 | CT_ITS ---
WS: [id number] CT CHEST AND ABDOMEN WITH CONTRAST CONTRAST HISTORY: LUNG CANCER TECHNIQUE: Axial imaging is performed through the chest and abdomen with IV and oral contrast.. Sagit linda and coronal reformats. All CT scans at [facility] use at least one of these dose opti mization techniques: automated exposure control; mA and/or kV adjustment per patient size (includes t argeted exams where dose is matched to clinical indication); or iterative reconstruction. CONTRAST: Visipaque 320; 95 mL IV. DLP: 2015.68 mGycm COMPARISON: 03/18/2020, PET CT 06/08/[address]: Spiculated mass in the central RIGHT upper lobe now measures 13 x 13 mm. Slight decrease in size sinc e the prior study. There is mild stranding and distortion of the adjacent lung. There are a few perip heral nodules in the RIGHT upper lobe which are stable. Ill-defined subsolid nodule in the RIGHT lowe r lobe measures 16 x 12 mm. This nodule is becoming more consolidated and corresponds to the abnormal ity described on PET/CT. Previously described nodules at the RIGHT apex are significantly smaller in size and some have resolved. Nodules in the RIGHT lower lobe have actually decreased also, these were FDG negative. Normal size heart. No new or enlarging lymph nodes. Mild atherosclerosis of the aorta. Mild enlargeme nt of the pulmonary artery. Small hiatal hernia. Abdomen CT: Diffuse hepatic steatosis. No metastatic disease within the liver. There is a cyst in the posterior R IGHT lobe of liver measuring 10 mm. Gallbladder, spleen, adrenal glands and pancreas are negative. Mi ld cortical thinning and scarring involving the cortex of the RIGHT kidney. No solid mass or obstruct ion. Negative LEFT kidney. Subcentimeter nodules around the celiac axis are unchanged. These were not positive on the PET/CT. Small shoddy retroperitoneal lymph nodes. No ascites. Atherosclerotic plaque within the aorta. No aneurysm. Visualized GI tract is negative. Osseous structures: Multifocal anterior bridging osteophytes in the thoracic spine. No osteoblastic o r osteolytic bone disease. CT/CT chest abdomen w con* IMPRESSION: 1. Mild decrease in size of the spiculated neoplasm RIGHT upper lobe now measu ring 13 x 13 mm. 2. Subsolid nodule in the RIGHT lower lobe has become more consolidated and co nspicuous measuring 16 x 11 mm. Low-grade neoplasm is not excluded. 3. Additional bilateral subcentimeter nodules seen on prior CT from 03/18/2020 of either resolved or have become much smaller in size. 4. No mediastinal or hilar adenopathy. 5. Chronic emphysema and pulmonary hypertension. 6. Hepatic steatosis with no metastatic disease in the liver.
[2020-10-08] MEDS: iohexol 300 mg/mL 50 mL Btl PO (10:56)
[2020-10-08] MEDS: iodixanol 320 mg/mL 100mL Btl IV (11:22)
== END 2020-10-08 09:32 | disposition home or self-care (01) ==
LOC: RADWPI 09:39
PROVIDERS: PCP Family Medicine; Visit Provider Radiology Radiation Oncology
DX: C34.11 Malignant neoplasm of upper lobe, right bronchus or lung (principal); K76.0 Fatty (change of) liver, not elsewhere classified; J43.9 Emphysema, unspecified; R91.1 Solitary pulmonary nodule
CPT/HCPCS: 71260; 74160; Q9967

== ENCOUNTER 2020-10-11 08:55 | Outpatient (CLI) | payer MEDICARE, OTHER, SELFPAY ==
--- NOTE | 2020-10-11 10:09 | ONCRAD EPV_ITS ---
Radiation Oncology Follow-Up Note Patient Name: Dina Abrams Date of : 1945 Date of Service: 10/11/2020 Attending Physician: Ge Perez M.D. Dina Abrams returned to my office this morning for a routinely scheduled follow-up appointment. She completed stereotactic ablative body radiotherapy in July for the management of a clinical stage IA3 (T1cN0) invasive squamous cell carcinoma of the right lower lobe of the lung. SABR was delivered between the dates of July 23, 2020 through August 02, 2020. A prescribed dose of 50 Gy was delivered in five fractions encompassing 11 elapsed days. On review of systems, the patient denied any pulmonary complaints except for an intermittent cough. On physical examination, she weighed 199 lbs. Her temperature was 97.7 ???F with a blood pressure of 106/66 mmHg. Her pulse was 71 bpm and the respiratory rate was 20. Oxygen saturation while breathing ambient air was 96%. In summary, Ms. Abrams returned for a routine radiotherapy follow-up. CT imaging of the chest and abdomen ordered on October 08, 2020 identified a decrease in the right upper lobe mass and an ill-defined nodule within the right lower lobe that has become more consolidated corresponding to the previously described abnormality on PET CT imaging. I will a PET CT to determine metabolic characteristics about this lesion. Signed by: Dr. Ge Perez 10/11/2020 10:08:01 AM
== END 2020-10-11 08:56 | disposition home or self-care (01) ==
PROVIDERS: PCP Family Medicine; Visit Provider Radiology Radiation Oncology
DX: C34.11 Malignant neoplasm of upper lobe, right bronchus or lung (principal); D05.11 Intraductal carcinoma in situ of right breast; C78.02 Secondary malignant neoplasm of left lung; Z79.899 Other long term (current) drug therapy
CPT/HCPCS: 99024

== ENCOUNTER 2020-12-30 15:43 | Emergency (ER) | payer MEDICARE, OTHER, SELFPAY ==
[2020-12-30 15:50] VITALS: BP 114/87; PULSE 115; RESP 24; TEMP 39.6; O2SAT 90; BMI 28.2
--- NOTE | 2020-12-30 16:22 | XRR_ITS ---
PROCEDURE INFORMATION: Exam: XR Chest Exam date and time: 12/30/2020 4:22 PM Age: 75 years old Clinical indication: Condition or disease; Lung condition and disease; Copd; Complications not specified; Cough and shortness of breath; Patient HX: HX of lung cancer, ; additional info: SOB, cough TECHNIQUE: Imaging protocol: XR of the chest. Views: 1 view. COMPARISON: CT chest abdomen w con* 10/08/2020 11:18 AM FINDINGS: Lungs: The lungs are hyperinflated, consistent with COPD. No consolidative pulmonary infiltrate noted. Pleural spaces: Unremarkable. No pleural effusion. No pneumothorax. Heart/Mediastinum: Mild cardiomegaly is noted. Vasculature: The thoracic aorta is mildly atherosclerotic. Bones/joints: Degenerative thoracic spine changes are noted. XR/XR chest 1V portable [id number] IMPRESSION: 1. Mild cardiomegaly is noted. 2. The lungs are hyperinflated, consistent with COPD. 3. No consolidative pulmonary infiltrate noted. 4. There is no interval change from the prior examination.
--- NOTE | 2020-12-30 16:37 | CTR_ITS ---
PROCEDURE INFORMATION: Exam: CT Head Without Contrast Exam date and time: 12/30/2020 4:37 PM Age: 75 years old Clinical indication: Altered mental status/memory loss; Additional info: RUSLAN, has lung cancer TECHNIQUE: Imaging protocol: Computed tomography of the head without contrast. Radiation optimization: All CT scans at this facility use at least one of these dose optimization techniques: automated exposure control; mA and/or kV adjustment per patient size (includes targeted exams where dose is matched to clinical indication); or iterative reconstruction. COMPARISON: CT neck w con* [id number] 01/29/2015 9:02 AM RADIATION DOSE METRICS: Total DLP (mGy-cm): 807.8 FINDINGS: Limitations: The study is limited by mild patient motion artifact. Brain: Mild parenchymal volume loss noted. There is decreased attenuation of the periventricular white matter, consistent with mild chronic microangiopathic white matter disease. Linear hyperdensity noted in the left posterior temporal sulci, series 2, image 14-18. This is consistent with a small amount of acute subarachnoid hemorrhage. Location suggests possible posttraumatic etiology. No subdural or epidural hematoma. No intraparenchymal hematoma. No parenchymal edema identified. Cerebral ventricles: No ventriculomegaly. Paranasal sinuses: Visualized sinuses are unremarkable. No fluid levels. Mastoid air cells: Unremarkable as visualized. No mastoid effusion. Bones/joints: Unremarkable. No acute fracture. Soft tissues: Unremarkable. CT/CT head wo con* [id number] IMPRESSION: 1. The study is limited by mild patient motion artifact. 2. Linear hyperdensity noted in the left posterior temporal sulci, series 2, image 14-18. This is consistent with a small amount of acute subarachnoid hemorrhage. Location suggests possible posttraumatic etiology. Please correlate with clinical history. 3. No subdural or epidural hematoma. No intraparenchymal hematoma. Radiation Dose CTDIVOL = (mGy): DLP = 807.8 (mGy-cm)
[2020-12-30 16:41] VITALS: BP 109/59; PULSE 90; RESP 22; TEMP 39.4; O2SAT 93
[2020-12-30 16:42] LABS: Basophils # 0.1 10^3/uL (0.0-0.1); Basophils % 0.4 %; Eosinophils % 0.3 %; Hematocrit 37.7 % (37.0-47.0); Lymphocytes # 0.4 10^3/uL (0.8-4.8); Mean Corpuscular HGB Conc 31.8 g/dL (30.0-36.0); Mean Corpuscular Hemoglobin 28.7 pg (28.0-34.0); Mean Corpuscular Volume 90.2 fL (81-99); Mean Platelet Volume 10.7 fL (7.4-10.4); Monocytes # 0.7 10^3/uL (0.2-0.9); Monocytes % 5.6 %; Neutrophils # 11.37 10^3/uL (1.8-7.7); Neutrophils % 90.2 %; Nucleated Red Blood Cells % 0 %; Platelet Count 179 10^3/cmm (130-400); Red Blood Count 4.18 10^6/uL (4.1-5.3); Red Cell Distribution Width 12.9 % (12.1-15.1); White Blood Count 12.6 10^3/uL (4.0-10.0)
[2020-12-30 17:06] LABS: Lactic Sepsis W/Reflex 1.5 mmol/L (0.5-2.2)
[2020-12-30 17:18] LABS: Alanine Aminotransferase 9 U/L (0-33); Albumin Level 3.3 g/dL (3.5-5.2); Alkaline Phosphatase 59 IU/L (35-105); Anion Gap 12.7 (5-19); Aspartate Amino Transferase 12 U/L (0-32); Blood Urea Nitrogen 13 mg/dL (8-23); C Reactive Protein 40.5 mg/L (0.0-4.9); Carbon Dioxide 25 mmol/L (22-29); Chloride 102 mmol/L (98-107); Globulin 3.1 g/dL (1.3-4.6); Glucose 142 mg/dL (65-115); Influenza A by IFA Negative (Negative); Influenza B by IFA Negative (Negative); Osmolality Calculated 285 mOsm/kg (285-295); Potassium 3.7 mmol/L (3.5-5.1); SARS Covid-2 Antigen Negative (Negative); Sodium 136 mmol/L (136-145); Total Bilirubin 0.4 mg/dL (0.15-1.2); Total Protein 6.4 g/dL (6.6-8.7)
[2020-12-30 17:24] LABS: Procalcitonin 0.46 ng/mL (0-0.5)
[2020-12-30 17:26] VITALS: BP 102/72; PULSE 88; RESP 16; TEMP 37.3
--- NOTE | 2020-12-30 19:11 | ED_ITS ---
HPI - Fever General: Chief Complaint: Fever Stated Complaint: FEVER,WEAKNESS, AMS, CONFUSED Time Seen by Provider: 12/30/20 16:02 Source: patient and family () Mode of arrival: EMS Limitations: altered mental status History of Present Illness: HPI Narrative: This is a 75-year-old female with a history of hypertension diabetes mellitus, COPD, squamous cell carcinoma of the right lung who presents to the emergency department with a fever and altered mental status. According to her has symptoms started this morning and she was up primarily confused. states that she was unable to recall date of , could not recall where she was and could not answer any question. She had a fever then but he does not know how high it was. He then called for an am bulance to bring him to the emergency department to be evaluated. When I evaluated the patient she was able to answer my questions and was oriented, however she had delayed responses to questions, but she answer them correctly. She also had episodes where she started answering questions but then forgot what she was trying to say. They deny any falls or head trauma. They deny any sick contacts. On arrival to the emergency department she had a fever of 103.2 MD elicited complaint: fever and weakness Onset (ago): hour(s) Measured temperature: 103.2 F Exacerbating factors: nothing Relieving factors: nothing Associated symptoms: Reports chills, confusion, headache(s) (left sided), myalgias, nausea and short of breath; Deny abdominal pain, flank pain, chest pain, cough, diarrhea, extremity pain, nasal congestion, night sweats, rash, rhinorrhea, sinus pain, stiffness, sore throat, vomiting or weight loss Treatments prior to arrival fever: none Review of Systems General: Reports: 10 or more systems reviewed and unremarkable except in HPI and below Const: Reports: chills; Denies: night sweats ENMT: Denies: nasal congestion or sinus pain Card: Denies: chest pain GI: Reports: nausea; Denies: abdominal pain, vomiting or diarrhea : Denies: flank pain Musc: Denies: extremity pain Neuro: Reports: headache(s) (left sided) and confusion PFS ED PFSH: Medical History (Reviewed 12/31/20 @ 00:04 by Jonah Nam MD, [facility] [place] COPD (chronic obstructive pulmonary disease) History of COPD Hx of diabetes mellitus Hx of primary hypertension Lung nodule Surgical History (Reviewed 12/31/20 @ 00:04 by Jonah Nam MD, [facility] [place] Hx of bladder repair surgery Hx of carpal tunnel repair Hx of cataract extraction Hx of eye surgery Hx of hysterectomy Social History (Reviewed 12/31/20 @ 00:04 by Jonah Nam MD, [facility] [place] Smoking and tobacco status: current every day smoker cigarettes Packs smoked per day: 1 Years cigarettes smoked: 60 Second hand smoke exposure: Yes Smoking risk assessment/counseling performed?: Yes Alcohol intake: never Counseling given: No Counseling given: No Lives independently: Yes Household members: spouse Marital status: Current occupational status: retired History of recent travel: No Current gender identity: Female Physical Exam Const: COMMON NORMALS: no acute distress, average body habitus, patient oriented x3, no limitations, healthy appearing, alert and well nourished HENMT: COMMON NORMALS: normocephalic, atraumatic and moist oral mucous membranes HEAD & SCALP: normocephalic and atraumatic Neck/C-Spine: COMMON NORMALS: full ROM, supple, no meningeal signs, no JVD and No carotid bruits Resp: COMMON NORMALS: normal respiratory effort, No retractions, No use of accessory muscles, clear to auscultation bilaterally and percussion normal AUSCULTATION: clear to auscultation bilaterally PERCUSSION: percussion normal Cardio: COMMON NORMALS: no JVD, regular rhythm, S1 normal heart sound present, S2 normal heart sound present, No gallops present (Cardio), No clicks present (Cardio), No murmurs present (Cardio), No rub (Cardio) and Peripheral pulses 2+ throughout RATE: tachycardic RHYTHM: regular rhythm HEART SOUNDS: S1 normal heart sound present and S2 normal heart sound present PERIPHERAL PULSES: Peripheral pulses 2+ throughout GI: COMMON NORMALS: Normal to inspection, nondistended, normoactive bowel sounds present, Soft to palpation, non-tender, No hepatosplenomegaly present, no masses and no bruits PALPATION: Yes Soft to palpation and Yes No hepat osplenomegaly present Extremity: COMMON NORMALS: normal to inspection, full ROM, capillary refill normal, no calf tenderness and no pedal edema Neuro: COMMON NORMALS: patient oriented x3 SENSORIUM/ORIENTATION: Yes alert and Yes fluctuating sensorium MENINGEAL SIGNS: Yes no meningeal signs Skin: COMMON NORMALS: no rashes or lesions noted, no wounds, turgor normal, no jaundice, no petechiae and no mottling GENERAL SKIN EXAM: no rashes or lesions noted and turgor normal Course Reevaluation(s): Reevaluation #1: Discussed lab and imaging findings with the patient and her . Explained that she has a subarachnoid hemorrhage and will need to be managed by neurosurgery. Advised that we do not have a neurosurgeon in this facility and both hospitals in [place] and are accepting patients. She will be transferred to [facility]. They voiced understanding and they are in agreement with the plan. Time: 18:40 Consultations: Consultation #1: Discussed the patient with the neurosurgeon not [facility] in [place]. Because she has a fever he believes she should be admitted to the medical service and he will follow, however there are no beds at their facility. There are no beds at [facility] in [place] either so we will try [place]. Time: 17:49 Consultation #2: Discussed the patient with Dr. Castillo, neurosurgeon at [facility] and he kindly accepted the patient to his service. Time: 18:34 Vital Signs: Vital signs: Vital Signs Temperature 98.7 F 12/30/20 20:31 Pulse Rate 58 L 12/30/20 20:31 Respiratory Rate 16 12/30/20 20:31 Blood Pressure 115/67 12/30/20 20:31 Pulse Oximetry 95 12/30/20 20:31 MDM - Fever MDM Narrative: Medical decision making narrative: This 75 year old female pres ents to the ED with fever, AMS, and evaluation in the ED showed a SAH on the left. There was no obvious cause for her fever. She is transferred to [facility] for further evaluation and management by neurosurgery. She remained clinically stable in the emergency department. Patient and both states that the patient did not fall. Medical Records: Attestation: I reviewed the patient's medical records. Lab Data: Attestation: I reviewed the patient's lab results. Labs: Lab Results 12/30/20 12/30/20 12/30/20 Range/Units 16:28 16:28 16:28 WBC 12.6 H (4.0-10.0) 10^3/ uL RBC 4.18 (4.1-5.3) 10^6/u L Hgb 12.0 (11.5-15.3) g/dL Hct 37.7 (37.0-47.0) % MCV 90.2 (81-99) fL MCH 28.7 (28.0-34.0) pg MCHC 31.8 (30.0-36.0) g/dL RDW 12.9 (12.1-15.1) % Plt Count 179 (130-400) 10^3/c mm MPV 10.7 H (7.4-10.4) fL Neut % (Auto) 90.2 % Lymph % (Auto) 3.0 % [place] % (Auto) 5.6 % Eos % (Auto) 0.3 % Baso % (Auto) 0.4 % Neut # (Auto) 11.37 H (1.8-7.7) 10^3/u L Lymph # (Auto) 0.4 L (0.8-4.8) 10^3/u L [place] # (Auto) 0.7 (0.2-0.9) 10^3/u L Eos # (Auto) 0.0 (0.0-0.8) 10^3/u L Baso # (Auto) 0.1 (0.0-0.1) 10^3/u L Nucleated RBC % (a uto) 0 % Nucleated RBCs # 0.0 /100WBC Sodium 136 (136-145) mmol/L Potassium 3.7 (3.5-5.1) mmol/L Chloride 102 (98-107) mmol/L Carbon Dioxide 25 (22-29) mmol/L Anion Gap 12.7 (5-19) BUN 13 (8-23) mg/dL Creatinine 0.8 (0.5-0.9) mg/dL GFR Calculation Not Reportable Glucose 142 H (65-115) mg/dL Calculated Osmolal ity 285 (285-295) mOsm/k g Lactic Acid 1.5 (0.5-2.2) mmol/L Calcium 8.0 L (8.5-10.5) mg/dL Total Bilirubin 0.4 (0.15-1.2) mg/dL AST 12 (0-32) U/L ALT 9 (0-33) U/L Alkaline Phosphata se 59 (35-105) IU/L C-Reactive Protein 40.5 H (0.0-4.9) mg/L Total Protein 6.4 L (6.6-8.7) g/dL Albumin 3.3 L (3.5-5.2) g/dL Globulin 3.1 (1.3-4.6) g/dL Procalcitonin 0.46 (0-0.5) ng/mL Urine Color (Yellow) Urine Appearance (CLEAR) Urine pH (5-7) Ur Specific Gravit y (1.005-1.030) Urine Protein (Negative) Urine Glucose (UA) (Normal) Urine Ketones (Negative) Urine Blood (Negative) Urine Nitrate (Negative) Urine Bilirubin (Negative) Urine Urobilinogen (Negative) mg/dL Ur Leukocyte Rohnda ase (Negative) Urine RBC (0-2) /hpf Urine WBC (0-5) /hpf Ur Squamous Epith Cells (0-5) /hpf Amorphous Sediment Urine Bacteria (NONE) /hpf Influenza Type A A g (Negative) Influenza Type B A g (Negative) SARS-CoV-2 Ag (Rap id) (Negative) 12/30/20 12/30/20 12/30/20 Range/Units 16:28 16:28 18:48 WBC (4.0-10.0) 10^3/ uL RBC (4.1-5.3) 10^6/u L Hgb (11.5-15.3) g/dL Hct (37.0-47.0) % MCV (81-99) fL MCH (28.0-34.0) pg MCHC (30.0-36.0) g/dL RDW (12.1-15.1) % Plt Count (130-400) 10^3/c mm MPV (7.4-10.4) fL Neut % (Auto) % Lymph % (Auto) % [place] % (Auto) % Eos % (Auto) % Baso % (Auto) % Neut # (Auto) (1.8-7.7) 10^3/u L Lymph # (Auto) (0.8-4.8) 10^3/u L [place] # (Auto) (0.2-0.9) 10^3/u L Eos # (Auto) (0.0-0.8) 10^3/u L Baso # (Auto) (0.0-0.1) 10^3/u L Nucleated RBC % (a uto) % Nucleated RBCs # /100WBC Sodium (136-145) mmol/L Potassium (3.5-5.1) mmol/L Chloride (98-107) mmol/L Carbon Dioxide (22-29) mmol/L Anion Gap (5-19) BUN (8-23) mg/dL Creatinine (0.5-0.9) mg/dL GFR Calculation Glucose (65-115) mg/dL Calculated Osmolal ity (285-295) mOsm/k g Lactic Acid (0.5-2.2) mmol/L Calcium (8.5-10.5) mg/dL Total Bilirubin (0.15-1.2) mg/dL AST (0-32) U/L ALT (0-33) U/L Alkaline Phosphata se (35-105) IU/L C-Reactive Protein (0.0-4.9) mg/L Total Protein (6.6-8.7) g/dL Albumin (3.5-5.2) g/dL Globulin (1.3-4.6) g/dL Procalcitonin (0-0.5) ng/mL Urine Color Yellow (Yellow) Urine Appearance Hazy A (CLEAR) Urine pH 6 (5-7) Ur Specific Gravit y 1.010 (1.005-1.030) Urine Protein 2+ H (Negative) Urine Glucose (UA) Norm (Normal) Urine Ketones Negative (Negative) Urine Blood 2+ H (Negative) Urine Nitrate Positive H (Negative) Urine Bilirubin Neg (Negative) Urine Urobilinogen Norm (Negative) mg/dL Ur Leukocyte Rhonda ase Trace H (Negative) Urine RBC 5-10 H (0-2) /hpf Urine WBC 15-25 H (0-5) /hpf Ur Squamous Epith Cells 0-4 H (0-5) /hpf Amorphous Sediment Not Reportable Urine Bacteria 3+ H (NONE) /hpf Influenza Type A A g Negative (Negative) Influenza Type B A g Negative (Negative) SARS-CoV-2 Ag (Rap id) Negative (Negative) Imaging Data^: CT Head: Attestation: I personally reviewed and interpreted this imaging study as follows: Radiologist's impression: [id number] [facility], [place] [address]PM Scan ReportSigned with Addenda Patient: Dina Abrams #: [id number]: 4Acct#:[id number]/Sex: 75 / FADM Date: 12/30/20Loc: ERRoom/Bed:Attending Dr: Ordering Provider/Ordering MD: Jonah Nam MD, [facility] [place] Date of Service: 12/30/20 Procedure(s): CT head wo con* [id number] Accession Number(s): [id number] Report Number: [id number]/CT head wo con* [id number] THIS REPORT CONTAINS FINDINGS MAY BE CRITICAL TO PATIENT CARE. The findings were verbally communicated via telephone conference call with Dr. CHAYITO TOUSSAINT at 5:27 PM CDT on 12/30/2020. The findings were acknowledged and understood. Radiation Dose CTDIVOL = (mGy): DLP = 807.8 (mGy-cm) Addendum Dictated By: Bridger Hernadez MDAddendum Signed By: Bridger Hernadez MDSigned Date/Time:12/30/20 1729Addendum Cosigned By: PROCEDURE INFORMATION: Exam: CT Head Without Contrast Exam date and time: 12/30/2020 4:37 PM Age: 75 years old Clinical indication: Altered mental status/memory loss; Additional info: AMS, has lung cancer TECHNIQUE: Imaging protocol: Computed tomography of the head without contrast. Radiation optimization: All CT scans at this facility use at least one of these dose optimization techniques: automated exposure control; mA and/or kV adjustment per patient size (includes targeted exams where dose is matched to clinical indication); or iterative reconstruction. COMPARISON: CT neck w con* [id number] 01/29/2015 9:02 AM RADIATION DOSE METRICS: Total DLP (mGy-cm): 807.8 FINDINGS: Limitations: The study is limited by mild patient motion artifact. Brain: Mild parenchymal volume loss noted. There is decreased attenuation of the periventricular white matter, consistent with mild chronic microangiopathic white matter disease. Linear hyperdensity noted in the left posterior temporal sulci, series 2, image 14-18. This is consistent with a small amount of acute subarachnoid hemorrhage. Location suggests possible posttraumatic etiology. No subdural or epidural hematoma. No intraparenchymal hematoma. No parenchymal edema identified. Cerebral ventricles: No ventriculomegaly. Paranasal sinuses: Visualized sinuses are unremarkable. No fluid levels. Mastoid air cells: Unremarkable as visualized. No mastoid effusion. Bones/joints: Unremarkable. No acute fracture. Soft tissues: Unremarkable. CT/CT head wo con* [id number] IMPRESSION: 1. The study is limited by mild patient motion artifact. 2. Linear hyperdensity noted in the left posterior temporal sulci, series 2, image 14-18. This is consistent with a small amount of acute subarachnoid hemorrhage. Location suggests possible posttraumatic etiology. Please correlate with clinical history. 3. No subdural or epidural hematoma. No intraparenchymal hematoma. Radiation Dose CTDIVOL = (mGy): DLP = 807.8 (mGy-cm) Dictated By:Bridger Hernadez MDSigned By:Bridger Hernadez MDSigned Date/Time:12/30/201724DD/ 23 CXR: Attestation: I personally reviewed and interpreted this imaging study as follows: Radiologist's impression: [address] [address]ANpl ReportSigned Patient: Dina Abrams #: [id number]: 1945cct#:[id number]/Sex: 75 / FADM Date: 12/30/20Loc: ERRoom/Bed:Attending Dr: Ordering Provider/Ordering MD: Jonah Nam MD, [facility] [place] Date of Service: 12/30/20 Procedure(s): XR chest 1V portable [id number] Accession Number(s): [id number] Report Number: [id number] PROCEDURE INFORMATION: Exam: XR Chest Exam date and time: 12/30/2020 4:22 PM Age: 75 years old Clinical indication: Condition or disease; Lung condition and disease; Copd; Complications not specified; Cough and shortness of breath; Patient HX: HX of lung cancer, ; additional info: SOB, cough TECHNIQUE: Imaging protocol: XR of the chest. Views: 1 view. COMPARISON: CT chest abdomen w con* 10/08/2020 11:18 AM FINDINGS: Lungs: The lungs are hyperinflated, consistent with COPD. No consolidative pulmonary infiltrate noted. Pleural spaces: Unremarkable. No pleural effusion. No pneumothorax. Heart/Mediastinum: Mild cardiomegaly is noted. Vasculature: The thoracic aorta is mildly atherosclerotic. Bones/joints: Degenerative thoracic spine changes are noted. XR/XR chest 1V portable [id number] IMPRESSION: 1. Mild cardiomegaly is noted. 2. The lungs are hyperinflated, consistent with COPD. 3. No consolidative pulmonary infiltrate noted. 4. There is no interval change from the prior examination. Dictated By:Bridger Hernadez MDSigned By:Bridger Hernadez MDSigned Date/Time:12/30/201726DD/ 25 Discharge Plan Discharge Patient Disposition: Xfer Short-Term Hosp Clinical Impression: Subarachnoid hemorrhage Fever Qualifiers: Fever type: unspecified Qualified Code(s): R50.9 - Fever, unspecified Condition: Stable Discharge Orders: Transfer Out of Facility (Order); Ordered 12/30/20 Ordered By: Jonah Nam Referrals: Darrius Sim MD [Primary Care Provider] - Coding Level of Care Code ED [employer]ator for [facility]
[2020-12-30 19:16] VITALS: BP 114/71; PULSE 74; RESP 14; TEMP 30.9; O2SAT 92
[2020-12-30 19:23] LABS: Add Urine Microscopic? YES; Bilirubin Urine Neg (Negative); Blood Urine 2+ (Negative); Glucose Urine UA Norm (Normal); Ketones Urine Negative (Negative); Leukocyte Esterase Urine Trace (Negative); Nitrate Urine Positive (Negative); Protein Urine 2+ (Negative); Urine Appearance Hazy (CLEAR); Urine Color Yellow (Yellow); Urobilinogen Urine Norm (Negative); pH Urine 6 (5-7)
[2020-12-30 19:24] LABS: Add Urine Culture? Yes; Bacteria Urine 3+ /hpf; Squamous Epithelial Cell Urine 0-4 /hpf (0-5); WBC Urine 15-25 /hpf (0-5)
[2020-12-30 20:31] VITALS: BP 115/67; PULSE 58; RESP 16; TEMP 37.1; O2SAT 95
--- NOTE | 2020-12-31 13:09 | PC.NURSE ---
Critical lab 2 positive bottles out of 4 Gram negative naomi. Waiting for further results
[2021-01-01 06:24] LABS: Coronavirus Test Green County Not Detected
--- NOTE | 2021-01-01 16:42 | PC.NURSE ---
covid results faxed to [facility] where pt was transferred
== END 2020-12-30 20:36 | disposition short-term general hospital (02) ==
PROVIDERS: Emergency Provider Family Medicine; PCP Family Medicine
DX: R50.9 Fever, unspecified (principal); I60.9 Nontraumatic subarachnoid hemorrhage, unspecified; J44.9 Chronic obstructive pulmonary disease, unspecified; E11.9 Type 2 diabetes mellitus without complications; I10 Essential (primary) hypertension; F17.210 Nicotine dependence, cigarettes, uncomplicated; Z20.822 Contact with and (suspected) exposure to COVID-19
CPT/HCPCS: 70450; 71045; 80053; 81001; 83605; 84145; 85025; 86140; 87040; 87077; 87086; 87186; 87205; 87426; 87635; 87804; 99285

== ENCOUNTER 2021-01-31 08:54 | Outpatient (CLI) | payer MEDICARE, OTHER, SELFPAY ==
--- NOTE | 2021-01-31 | CT_ITS ---
WS: [id number] Exam: CT chest abd pel w con* Date/Time of Exam: 01/31/2021 9:12 AM Reason For Exam: LUNG CANCER DLP: 2072.[address] scans at [facility] use at least one of these dose optimization techniques: automat ed exposure control; mA and/or kV adjustment per patient size (includes targeted exams where dose is matched to clinical indication); or iterative reconstruction. CT scan of the chest with IV contrast. Compared to the most recent exam 10/08/2020. Previously noted spiculated mass in the upper lobe of the right lung shows no change in size. The les ion still measures about 1.3 x 1.3 cm. Mild interstitial stranding and infiltrative change about the lesion. Right lower lobe pulmonary nodule is unchanged. The left lung is clear. Mild emphysematous ch anges noted. Infiltrative change is seen about the lesion which is new. 1 cm short axis anterior left paraspinal lymph node is stable in appearance. No other sign of lymphadenopathy. Normal thyroid tiss ue. The airway is patent. The thoracic aorta is normal in caliber. Prominent pulmonary arteries. No d estructive bone lesions are chest wall defects. Degenerative changes of the dorsal spine. CT/CT chest abd pel w con* IMPRESSION: 1. Stable-appearing spiculated mass in the right upper lobe measuring about 1.3 x 1.3 cm. There appears to be some increased stranding and interstitial change about the lesion when compared to the last study. 2. Stable appearing subsolid nodule in the right lower lobe. 3. Stable appearing 1 cm mediastinal lymph node. CT scan of the abdomen and pelvis with IV contrast. 1 cm cyst in the posterior aspect of the right hepatic lobe. The liver is othe rwise normal in appearance. No calcified stones in the gallbladder. The spleen, stomach and pancreas appear normal. The abdominal aorta is normal in caliber. The portal vein and IVC are patent. Normal adrenal glands. Small scattered mese nteric and retroperitoneal lymph nodes unchanged. No significant lymphadenopath y seen. No renal mass or obstruction. Small bowel loops are normal in caliber. No significant visualized large bowel abnormality demonstrated. Normal appendix seen. No free air. No ascites. No destructive bone lesions. IMPRESSION: 1. No mass, significant lymphadenopathy or acute finding. Stable exam.
[2021-01-31] MEDS: iohexol 300 mg/mL 100 mL Btl IV (10:25)
[2021-01-31] MEDS: iohexol 300 mg/mL 50 mL Btl PO (10:26)
== END 2021-01-31 08:55 | disposition home or self-care (01) ==
PROVIDERS: PCP Family Medicine; Visit Provider Radiology Radiation Oncology
DX: C34.11 Malignant neoplasm of upper lobe, right bronchus or lung (principal)
CPT/HCPCS: 71260; 74177; Q9967

== ENCOUNTER 2021-02-07 08:53 | Outpatient (CLI) | payer MEDICARE, OTHER, SELFPAY ==
--- NOTE | 2021-02-07 09:42 | ONCRAD EPV_ITS ---
Radiation Oncology Follow-Up Note Patient Name: Dina Abrams Date of : 1945 Date of Service: 02/07/2021 Attending Physician: Ge Perez M.D. Dina Abrams returned to my office this morning for a routinely scheduled follow-up appointment. 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 SABR was delivered between the dates of July 23, 2020 through August 02, 2020. A prescribed dose of 50 Gy was delivered in five fractions encompassing 11 elapsed days. On physical examination, she weighed 185 lbs. The temperature was 97.9???F. Her blood pressure was 117/65 mmHg. The pulse was 77 bpm and the respiratory rate was 18 breaths per minute. The oxygen saturation while breathing ambient are was 5%. Reduced breath sounds with rales in right posterior lung casas. CT imaging of the chest and abdomen ordered on January 31, 2021 demonstrated a stable exam. In summary, Ms. Abrams returned for a routine radiotherapy follow-up. She will return in three months as per NCCN Guidelines. I will order a thoracoabdominal CT scan prior to this appointment. Signed by: Dr. Ge Perez 02/07/2021 9:40:40 AM
== END 2021-02-07 08:54 | disposition home or self-care (01) ==
LOC: ONCMED 08:57
PROVIDERS: PCP Family Medicine; Visit Provider Radiology Radiation Oncology
DX: C34.11 Malignant neoplasm of upper lobe, right bronchus or lung (principal); R06.00 Dyspnea, unspecified; Z79.899 Other long term (current) drug therapy
CPT/HCPCS: 99215

== ENCOUNTER 2021-04-30 08:59 | Outpatient (CLI) | payer MEDICARE, OTHER, SELFPAY ==
--- NOTE | 2021-04-30 | CT_ITS ---
WS: [id number] CT CHEST AND ABDOMEN TECHNIQUE: Contrast-enhanced CT of the chest and abdomen with coronal and sagittal reformatted images . CLINICAL INFORMATION: LUNG CANCER COMPARISON: CT February 01, [address] October 19, 2020. CT October 08, 2020 DLP: 1785.[address] scans at [facility] use at least one of these dose optimization techniques: automated e xposure control; mA and/or kV adjustment per patient size (includes targeted exams where dose is matc hed to clinical indication); or iterative reconstruction. CT CHEST: Spiculated mass right upper lobe is decreased in size slightly today measuring 1.0 x 1.0 cm compared t 1.3 x 1.3 cm previous. Semisolid groundglass opacity in the right lower lobe laterally measures 1.9 x 1.3 cm and is unchanged from previous. Multiple new patchy infiltrates in the right upper lobe wit h small nodular opacities. Additional hazy groundglass and subcentimeter semisolid opacities in the l eft upper lobe and left lower lobe. These may be infectious or inflammatory however metastatic diseas e not excluded. Recommend 3 month follow-up. Aortic calcification. Proximal main pulmonary arteries are unchanged. No mediastinal or hilar lymphad enopathy. CT ABDOMEN: Diffuse fatty infiltration of the liver. Stable right hepatic cyst measuring 10 mm. Normal GE junctio n. Normal spleen. Small left adrenal nodule likely adenoma measuring 6 to 7 mm unchanged. Right adren al gland is normal. A few normal sized lymph nodes in the upper abdomen. Normal renal parenchymal enh ancement. Cortical scarring right kidney. Fatty atrophy of the pancreas. Normal caliber abdominal aor ta. No periaortic or retroperitoneal lymphadenopathy. CT/CT chest abdomen w con* IMPRESSION: 1. Right upper lobe nodule has decreased in size slightly today measuring 1.0 x 1.0 cm compared x 1.3 cm previous 2. No mediastinal or hilar lymphadenopathy. 3. Stable semisolid groundglass opacity right lower lobe. 4. New patchy interstitial and hazy infiltrates in the right upper lobe and ab out the right hilum. Recommend correlation for pneumonia. Some this may be due to treatment-related changes. 5. Additional new scattered subcentimeter groundglass and small nodular opacit ies in both lungs subcentimeter in size. These may be infectious or inflammator y but metastatic disease not excluded. Recommend 3 month follow-up. 6. No suspicious findings in the abdomen
[2021-04-30 09:49] LABS: Blood Urea Nitrogen 11 mg/dL (8-23)
[2021-04-30] MEDS: iohexol 300 mg/mL 100 mL Btl IV (10:12)
[2021-04-30] MEDS: iohexol 300 mg/mL 50 mL Btl PO (10:12)
== END 2021-04-30 09:00 | disposition home or self-care (01) ==
PROVIDERS: PCP Family Medicine; Visit Provider Radiology Radiation Oncology
DX: C34.11 Malignant neoplasm of upper lobe, right bronchus or lung (principal); R91.1 Solitary pulmonary nodule; R91.8 Other nonspecific abnormal finding of lung field
CPT/HCPCS: 71260; 74160; 82565; 84520; Q9967

== ENCOUNTER 2021-05-02 09:58 | Outpatient (CLI) | payer MEDICARE, OTHER, SELFPAY ==
--- NOTE | 2021-05-02 10:38 | ONCRAD EPV_ITS ---
Radiation Oncology Follow-Up Note Patient Name: Dina Abrams Date of : 1945 Date of Service: 05/02/2021 Attending Physician: Ge Perez M.D. Dina Abrams returned to my office this morning for a routinely scheduled follow-up appointment. 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 SABR was delivered between the dates of July 23, 2020 through August 02, 2020. A prescribed dose of 50 Gy was delivered in five fractions encompassing [address] imaging of the chest and abdomen ordered on April 30, 2021 (independently visualized in [facility]) demonstrated regression of the right upper lobe lesion (now measured 1 cm x 1 cm) and thus a partial response per RECIST. On physical examination, she weighed 189 lbs. The temperature was 97.7???F and her blood pressure was 122/73 mmHg. The pulse was 74 bpm and the respiratory rate was 20 breaths per minute. The oxygen saturation while breathing ambient are was 96%. Bronchial breath sounds were auscultated in the posterior lung casas. In summary, Ms. Abrams returned for a routine radiotherapy follow-up. She will return in three months as per NCCN Guidelines. I will order a thoracoabdominal CT scan prior to this appointment. Signed by: Dr. Ge Perez 05/02/2021 10:36:27 AM
== END 2021-05-02 09:59 | disposition home or self-care (01) ==
PROVIDERS: PCP Family Medicine; Visit Provider Radiology Radiation Oncology
DX: C34.11 Malignant neoplasm of upper lobe, right bronchus or lung (principal)
CPT/HCPCS: 99215

== ENCOUNTER 2021-07-22 07:51 | Outpatient (CLI) | payer MEDICARE, OTHER, SELFPAY ==
--- NOTE | 2021-07-22 | CT_ITS ---
WS: [id number] CT CHEST, ABDOMEN, AND PELVIS TECHNIQUE: Contrast-enhanced CT of the chest, abdomen, and pelvis with coronal and sagittal reformatt ed images. CLINICAL INFORMATION: RIGHT UPPER LOBE LUNG NEOPLASM COMPARISON: None. DLP: 2380.[address] scans at [facility] use at least one of these dose optimization techniques: automated e xposure control; mA and/or kV adjustment per patient size (includes targeted exams where dose is matc hed to clinical indication); or iterative reconstruction. CT CHEST: Semisolid groundglass opacity right lower lobe not significantly changed today measuring 1.9 x 1.6 cm . Spiculated right upper lobe neoplasm is not significantly changed today measuring 1.0 x 0.9 CM. Sta ble interstitial thickening about the right upper lobe neoplasm extending into the right upper lung a pex. Again seen are multiple subcentimeter opacities scattered throughout both lungs. Some of these are de creased and some are increased in size compared to the prior examination. RIGHT upper lobe subpleural nodule measuring 7 mm. New left upper lobe subpleural nodular opacity measuring 5 mm. Numerous addit ional subcentimeter subpleural subcentimeter opacities throughout both lungs technically indeterminan t. Subpleural opacity right lower lobe measuring 9 mm new from previous. Slightly spiculated opacity left lower lobe medially measuring 7 mm appears new from previous. Additional new spiculated right up per lobe opacity measuring 9 mm. Normal caliber thoracic aorta. Aortic calcification. Proximal main pulmonary arteries are normal. No axillary lymphadenopathy. No me diastinal or hilar lymphadenopathy. CT ABDOMEN AND PELVIS: Diffuse fatty infiltration the liver.. Stable right hepatic cyst measuring 10 mm. Normal GE junction. Small left adrenal nodule likely adenoma unchanged. Normal spleen. Adrenal gland is normal. Normal r enal parenchymal enhancement. No hydronephrosis. Cortical scarring right kidney. Fatty atrophy of the pancreas. Normal caliber abdominal aorta. Mild aortic calcification. Normal portal vein and splenic vein. Normal gallbladder. A few prominent normal sized lymph nodes in the upper abdomen unchanged. No periaortic or retroperitoneal lymphadenopathy. Shotty periaortic lymph nodes. Disc space narrowing worse at L4-5. CT/CT chest abd pel w con* IMPRESSION: 1. Previously described spiculated right upper lobe neoplasm today measures 10 x 9 mm unchanged from previous. Stable surrounding interstitial infiltrates in the right upper lobe some of which is likely due to treatment-related changes. 2. Semisolid groundglass opacity right lower lobe laterally is unchanged measu ring 1.9 x 1.6 cm. 3. Previously described numerous subcentimeter groundglass opacities some of w hich have improved and some of which have progressed compared to previous. Grahn static disease is not excluded and recommend continued surveillance with 3 kaylee h follow-up. 4. Notable new subpleural pulmonary nodules in the right upper lobe measuring 7 mm and 9 mm and left upper lobe measuring 5 mm. Additional subpleural opacity right lower lobe measuring 9 mm. These are indeterminate and metastatic diseas e not excluded. This can be further evaluated with PET/CT versus [address] follow-up 5. No mediastinal or hilar lymphadenopathy. 6. No evidence of metastatic disease in the abdomen or pelvis.
[2021-07-22 09:23] LABS: Blood Urea Nitrogen 10 mg/dL (8-23)
[2021-07-22] MEDS: iohexol 300 mg/mL 100 mL Btl IV (11:42)
[2021-07-22] MEDS: iohexol 300 mg/mL 50 mL Btl PO (11:42)
== END 2021-07-22 07:52 | disposition home or self-care (01) ==
PROVIDERS: PCP Family Medicine; Visit Provider Radiology Radiation Oncology
DX: C34.11 Malignant neoplasm of upper lobe, right bronchus or lung (principal); R91.8 Other nonspecific abnormal finding of lung field
CPT/HCPCS: 71260; 74177; 82565; 84520; Q9967

== ENCOUNTER 2021-07-31 08:22 | Outpatient (CLI) | payer MEDICARE, OTHER, SELFPAY ==
--- NOTE | 2021-07-31 08:31 | CT_ITS ---
WS: [id number] CTA OF THE CHEST WITH PULMONARY EMBOLISM PROTOCOL TECHNIQUE: High-resolution contrast enhanced CTA of the chest with coronal and sagittal reformatted i mages with pulmonary embolism protocol. MIP images are also reviewed. CLINICAL INFORMATION: TO EVALUATE RECENT CT CHEST-? R SUBSEGMENTAL PE COMPARISON: July 22, 2021 DLP: 247.[address] scans at [facility] use at least one of these dose optimization techniques: automated e xposure control; mA and/or kV adjustment per patient size (includes targeted exams where dose is matc hed to clinical indication); or iterative reconstruction. FINDINGS: Proximal main pulmonary arteries are normal. Filling defects in the right segmental and subsegmental pulmonary arteries right lower lobe compatible with acute pulmonary embolus. This corresponds to the findings seen on the recent CT chest abdomen pelvis. Left upper lobe segmental and subsegmental pulmo nary arteries are normal. Left lower lobe pulmonary arteries are normal. Right upper lobe pulmonary a rteries are patent. No other significant changes from July 22, 2021. CT/CT angio chest PE protcl [id number] IMPRESSION: 1. Filling defects in the right segmental and subsegmental pulmonary arteries right lower lobe compatible with acute pulmonary embolus. 2. Main pulmonary arteries are normal. 3. No other significant changes compared to July 22, 2021 Notified Ge Perez MD at 07/31/2021 9:22 AM. Patient directed to the Oncology clinic for evaluation per Dr. Perez
[2021-07-31] MEDS: iohexol 350 mg/mL 100 mL Btl IV (09:06)
== END 2021-07-31 08:23 | disposition home or self-care (01) ==
LOC: RAD 08:24
PROVIDERS: PCP Family Medicine; Visit Provider Radiology Radiation Oncology
DX: C34.11 Malignant neoplasm of upper lobe, right bronchus or lung (principal); R91.1 Solitary pulmonary nodule
CPT/HCPCS: 71275

== ENCOUNTER 2021-09-26 09:05 | Outpatient (CLI) | payer MEDICARE, OTHER, SELFPAY ==
--- NOTE | 2021-09-26 09:12 | MM_ITS ---
WS: [id number] Bilateral diagnostic 3D tomosynthesis digital mammogram, 09/26/2021 Clinical Data: HX OF BREAST CA Comparison: 09/02/2020, 08/04/2019, 08/02/2018, 07/22/2017, 07/02/2016, 06/21/2015, 05/21/2014, 11/14/2013, 05/16/2013, 01/10/2013, 07/12/2012, 06/21/2012, 06/08/2012, 05/13/2012, 04/15/2011, 01/08/2010, 08/24/2008, , 06/14/2006. Findings: The breasts show fibroglandular tissue. There are stable calcifications in the lateral aspect of the right breast. Mole markers are on both breasts. No spiculated masses or clustered calcifications are seen. MM/[place] [id number] Impression: 1. Negative bilateral mammograms unchanged. 2. Recommend annual mammograms. BIRADS: 2-Benign FOLLOW UP: 1 Year Follow-up The CAD electric organ checker was used.
== END 2021-09-26 09:06 | disposition home or self-care (01) ==
LOC: RADSHAW 09:09
PROVIDERS: PCP Family Medicine; Visit Provider Family Medicine
DX: Z85.3 Personal history of malignant neoplasm of breast (principal)
CPT/HCPCS: 77062

== ENCOUNTER 2021-10-27 15:00 | Outpatient (CLI) | payer MEDICARE, OTHER, SELFPAY ==
--- NOTE | 2021-10-27 15:09 | CT_ITS ---
WS: [id number] CT CHEST WITHOUT INTRAVENOUS CONTRAST HISTORY: LUNG CANCER TECHNIQUE: Contiguous 5 mm axial imaging performed on the thorax. Coronal and sagittal reformats are submitted. All CT scans at [facility] use at least one of these dose optimization techniques: automated exposure control; mA and/or kV adjustment per patient size (includes targeted exams where dose is matched to clinical indication); or iterative reconstruction. CONTRAST: None DLP: 807.95 mGy.cm COMPARISON: 07/31/2021 Lungs and central airway: Mildly hyperexpanded lungs. Posttreatment changes in the RIGHT upper lobe a ssociated with the prior neoplasm are not significantly changed. The residual soft tissue nodule in t he RIGHT upper lobe with adjacent post radiation changes measures 9 x 13 mm. There is adjacent bronch ial wall thickening. Mild tethering and retraction and pleural thickening. There are multiple small p eripheral nodules and interstitial thickening in the RIGHT upper lobe which are stable. There is an a dditional nodule seen on image 33 of series 4 which has decreased in size as 07/31/2021. There are add itional multiple bilateral subcentimeter subpleural nodules which are substantially changed. There is one subsolid nodule in the RIGHT lower lobe that has slightly increased in size and consolidation as compared to the prior study. This nodule measures 23 x 17 mm and extends over a length of 17 mm. Thi s is very slightly increased in size over the several past examinations. Pleura: No effusions. Heart and pericardium: Mild cardiomegaly. No effusion. Mediastinum and katrina: No mediastinum or hilar adenopathy. Vessels: Mild atherosclerosis aorta. Chest wall and lower neck: No soft tissue masses. Upper abdomen: No change in the 13 mm cyst in the posterior RIGHT lobe of the liver. Osseous structures: Moderate thoracic spondylitic changes. CT/CT chest wo con [id number] IMPRESSION: 1. No significant change RIGHT upper lobe nodule with posttreatment changes ov er several prior examinations. Nodule measures 9 x 13 mm. 2. Very slight increase in size of the subsolid nodule RIGHT lower lobe now me asuring 23 x 17 mm. this may represent a low-grade neoplasm and needs continued evaluation with serial CT examinations. 3. There are also additional bilateral pulmonary nodules and spiculations whic h may be postinflammatory. Early neoplastic changes are not excluded but these are very similar to the prior study of 07/22/2021. Recommend continued close CT follow-up. 4. No mediastinal or hilar adenopathy.
== END 2021-10-27 15:01 | disposition home or self-care (01) ==
LOC: RAD 15:02
PROVIDERS: PCP Family Medicine; Visit Provider Radiology Radiation Oncology
DX: C34.11 Malignant neoplasm of upper lobe, right bronchus or lung (principal)
CPT/HCPCS: 71250

== ENCOUNTER → 2021-11-07 08:50 | Outpatient (BNVA) | payer MEDICARE, OTHER, SELFPAY | PROVIDERS: PCP Family Medicine; Visit Provider Internal Medicine Critical Care Medicine | DX: C34.91 Malignant neoplasm of unspecified part of right bronchus or lung (principal); J44.9 Chronic obstructive pulmonary disease, unspecified; G47.30 Sleep apnea, unspecified; I26.99 Other pulmonary embolism without acute cor pulmonale; F17.210 Nicotine dependence, cigarettes, uncomplicated | CPT/HCPCS: 99214 ==

== ENCOUNTER 2022-01-23 09:42 | Outpatient (CLI) | payer MEDICARE, OTHER, SELFPAY ==
--- NOTE | 2022-01-23 09:52 | CT_ITS ---
WS: [id number] CT CHEST WITH INTRAVENOUS CONTRAST HISTORY: LUNG CANCER TECHNIQUE: Contiguous 5 mm axial imaging performed on the thorax. Coronal and sagittal reformats are submitted. All CT scans at [facility] use at least one of these dose optimization techniques: automated exposure control; mA and/or kV adjustment per patient size (includes targeted exams where dose is matched to clinical indication); or iterative reconstruction. CONTRAST: Omnipaque 350; 75 mL IV. DLP: 942.03 mGy.cm COMPARISON: 10/27/2021, 07/31/2021 and 07/22/2021 Lungs and central airway: Posttreatment changes of fibrosis and residual nodule in the RIGHT upper lo be are stable. Nodule measures 11 x 9 mm. 5 mm nodule in the RIGHT middle lobe is unchanged. Increase in size in consolidation of the peripheral nodule in the superior segment RIGHT lower lobe now measu ring 11 x 10 mm with adjacent airspace disease. The subsolid nodule in the periphery of the RIGHT low er lobe has also increased in size. Very slight increase in size and measuring 27 x 18 mm as compared to 22 x 17 mm. This nodule which appears more consolidated. There are a few additional scattered nod ules which have not changed significantly in the RIGHT lower lobe and also in the medial LEFT lower l obe. Pleura: Normal. No pleural effusion. Heart and pericardium: Normal size heart with no pericardial effusion. Mediastinum and katrina: Small mediastinal and hilar lymph nodes. Inferior RIGHT paratracheal lymph node measures 9.7 mm. Minimal increase in size since the prior study. RIGHT hilar lymph nodes measure up to 10 mm in short axis diameter. Vessels: Moderate atherosclerosis aorta. No filling defects in the pulmonary artery. Chest wall and lower neck: No soft tissue masses. Upper abdomen: Hepatic steatosis. Subcapsular 13 mm low-attenuation lesion in the RIGHT lobe of the l iver is probably a cyst. No change. Osseous structures: No destructive process. CT/CT chest w con* [id number] IMPRESSION: 1. Stable RIGHT upper lobe residual/post treatment fibrosis and nodule over mu ltiple prior examinations. The nodule measures 11 x 9 mm. 2. Increase in size and consolidation of at least 2 nodules in the RIGHT lower lobe. The subsolid nodule has increased in size now measuring 27 x 18 mm. Prio r measurement 22 x 17 mm. The smaller nodule in the RIGHT lower lobe now measur es 11 x 10 mm. Prior maximum diameter 5 mm. Suspicious for metastatic disease. 3. There are additional bilateral nodules which are stable. 4. No significant increase in size of the mediastinal or hilar adenopathy. 5. No adrenal mass.
[2022-01-23 10:54] LABS: Blood Urea Nitrogen 11 mg/dL (8-23)
[2022-01-23] MEDS: iohexol 350 mg/mL 100 mL Btl IV (11:10)
== END 2022-01-23 09:43 | disposition home or self-care (01) ==
LOC: RAD 09:43
PROVIDERS: Specialist; PCP Family Medicine; Visit Provider Radiology Radiation Oncology
DX: C34.11 Malignant neoplasm of upper lobe, right bronchus or lung (principal)
CPT/HCPCS: 71260; 82565; 84520

== ENCOUNTER 2022-02-04 12:59 | Oncology outpatient (recurring) (ONCR) | payer MEDICARE, OTHER, SELFPAY ==
--- NOTE | 2022-02-04 13:53 | ONCRAD EPV_ITS ---
Radiation Oncology Follow-Up Note Patient Name: Dina Abrams Date of : 1945 Date of Service: 02/04/2022 Attending Physician: Ge Perez M.D. Dina Abrams returned to my office this morning for a routinely scheduled follow-up appointment. 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 SABR was delivered between the dates of July 23, 2020 through August 02, 2020. A prescribed dose of 50 Gy was delivered in five fractions encompassing [address] ordered on October 27, 2021 demonstrated stability of the right upper lobe lesion that measured 0.9 cm x 1.3 cm and a slight increase in size of a semi-solid right lower lobe nodule. A surveillance CT of the chest (independently reviewed in [facility]) obtained on January 23, 2022 described no significant change in the right upper-lobe and the right middle-lobe nodules. Consolidation was noted in the right lower lobe with a slight increase in size of the right lower lobe nodule. The mediastinal and right hilar lymphadenopathy were relatively stable. On physical examination, she weighed 196 lbs. The temperature was 98 ???F and her blood pressure was 118/83 mmHg. The pulse was 70 bpm and her respiratory rate was 20 breaths per minute. The oxygen saturation while breathing ambient are was 94%. In summary, Ms. Abrams returned for a routine radiotherapy follow-up. She will continue a NOAC for a previously identified pulmonary embolism of the right lower-lobe pulmonary segmental and sub-segmental arteries. The patient will follow-up as recommended by the NCCN guidelines. I will order a CT of the chest in 3 months prior to this appointment. Signed by: Dr. Ge Perez 02/04/2022 1:51:23 PM
== END 2022-03-04 23:59 | disposition home or self-care (01) ==
PROVIDERS: PCP Family Medicine; Visit Provider Radiology Radiation Oncology
DX: C34.11 Malignant neoplasm of upper lobe, right bronchus or lung (principal); C77.8 Secondary and unspecified malignant neoplasm of lymph nodes of multiple regions; F17.210 Nicotine dependence, cigarettes, uncomplicated; Z92.3 Personal history of irradiation
CPT/HCPCS: 99024

== ENCOUNTER 2022-05-01 07:49 | Outpatient (CLI) | payer MEDICARE, OTHER, SELFPAY ==
--- NOTE | 2022-05-01 07:45 | CT_ITS ---
WS: [id number] CT CHEST WITHOUT INTRAVENOUS CONTRAST HISTORY: Follow-up SABR RUL TECHNIQUE: Contiguous 5 mm axial imaging performed on the thorax. Coronal and sagittal reformats are submitted. All CT scans at [facility] use at least one of these dose optimization techniques: automated exposure control; mA and/or kV adjustment per patient size (includes targeted exams where dose is matched to clinical indication); or iterative reconstruction. CONTRAST: None DLP: 718.01 mGy.cm COMPARISON: 01/23/2022, 10/27/2021 Lungs and central airway: Chronic emphysematous changes. Posttreatment fibrosis noted along the media l RIGHT upper lobe. The pulmonary nodule which is undergone treatment in the RIGHT upper lobe appears slightly greater in size now measuring 2.0 x 1.0 cm. Increase in the post treatment fibrosis. Previo usly described spiculated mass in the RIGHT lower lobe has increased in size now measuring 1.5 x 1.6 cm. Slightly more spiculated than on the prior study. The subpleural groundglass attenuation also in the periphery of the RIGHT lower lobe has become slightly more consolidated but not increased in size . This subsolid opacification measures 2.3 x 1.8 cm. The 6 mm nodule at the medial RIGHT lung base mi nimally increased in size. There are a few additional small scattered nodules which have not changed significantly. Pleura: Normal. No pleural effusion. Heart and pericardium: Mild cardiomegaly. No pericardial effusion. Mediastinum and katrina: No mediastinal or hilar adenopathy. Vessels: Extensive atherosclerotic plaque within a tortuous aorta. No aneurysm. Mildly dilated pulmon iron artery. Chest wall and lower neck: No soft tissue masses. Upper abdomen: No change in the subcapsular low-attenuation nodule in the liver measuring 1.4 cm. No change in the small nodule involving the LEFT adrenal gland. The pancreatic duct is dilated. New sinc e 07/22/2021. Osseous structures: No destructive process. CT/CT chest wo con [id number] IMPRESSION: 1. Increase in size of the post treatment nodule in the medial RIGHT upper lob e since 01/23/2022. These changes may be post treatment related. Progression of known lung cancer should be considered. 2. No adenopathy. 3. Increase in size of the RIGHT lower lobe subsolid and solid spiculated nodu le since 01/23/2022 suspicious and consistent with progression of metastatic dis ease. 4. New dilated pancreatic duct. Obstructing lesion at the pancreatic head shou ld be considered. Less likely diffuse IPMN.
== END 2022-05-01 07:50 | disposition home or self-care (01) ==
LOC: RAD 07:49
PROVIDERS: PCP Family Medicine; Visit Provider Radiology Radiation Oncology
DX: C34.11 Malignant neoplasm of upper lobe, right bronchus or lung (principal)
CPT/HCPCS: 71250

== ENCOUNTER → 2022-05-11 08:17 | Outpatient (BNVA) | payer MEDICARE, OTHER, SELFPAY | PROVIDERS: PCP Family Medicine; Visit Provider Internal Medicine Pulmonary Disease | DX: J44.9 Chronic obstructive pulmonary disease, unspecified (principal); G47.30 Sleep apnea, unspecified; Z85.118 Personal history of other malignant neoplasm of bronchus and lung; R91.1 Solitary pulmonary nodule; F17.210 Nicotine dependence, cigarettes, uncomplicated; Z92.3 Personal history of irradiation; Z86.711 Personal history of pulmonary embolism; R06.83 Snoring; Z99.81 Dependence on supplemental oxygen | CPT/HCPCS: 99214 ==

== ENCOUNTER 2022-05-19 05:39 | Day surgery (SDC) | payer MEDICARE, OTHER, SELFPAY ==
[2022-05-15 10:35] VITALS: BMI 31.1
[2022-05-19] VITALS (10 sets, daily range): BP systolic 114–149; BP diastolic 61–76; PULSE 66–89; RESP 18–23; TEMP 36.3–36.6; O2SAT 93–100
--- NOTE | 2022-05-19 | SCC_ITS ---
Procedure done: 74017? Bronch via Trach site 24698 Dx Bronchoscope w/Washings or airway inspection 60240 Bx Bronchoscope w/Brushings or protected brushings 22441 Dx Bronchoscope w/BAL? 17739 Dx Bronchoscopy w/Bronchial or Endobronchial biopsy(s), single or multiple sites 16240 Bronch with computer image guided Navigational Bronchoscopy 74835 Bronchoscopy w/Transbronchial lung biopsy(s), single lobe ? ? 11736 Bronchoscopy w/Transbronchial needle aspiration biopsy(s), tracheal, main stem, and/or lobar bronchus 83027 Bronchoscopy w/ therapeutic aspiration of the tracheobronchial tree (clearance of airway secretions, removal of mucus plugs) 61242 Diagnostic EBUS without biopsies 45671 EBUS Diag or Interven Peripheral lesion (radial EBUS) 172.2 seconds of fluoroscopic guidance, for a cumulative dose of 35.41 mGy, was provided to Dr. Ivory by the radiology department. C-arm images of the chest were saved for the patient's permanent record. MTDD
[2022-05-19] MEDS: sodium chloride 0.9% 1,000 ML 30 ML IV (06:38)
--- NOTE | 2022-05-19 06:50 | W.PM.OPSUD ---
Surgery/Procedure H&P Update DATE OF PROCEDURE: May 19, 2022 DATE H&P PERFORMED: 01/03/20 CHANGES TO PREVIOUS DOCUMENTATION: NONE PREOP DIAGNOSIS: Suspected lung cancer PRIMARY INDICATION FOR PROCEDURE: pet active RLL Nodule in pt with previously treated RUL lesion PLANNED PROCEDURE: Operation Date: 05/19/22 07:00 Proposed Procedures p ION Robotic Bronchoscopy; 31458, 63658, 86668, 03913, 30659, 71954, 93646,R91.8(Not Applicable) - Lawrence Reyes DatarMD
--- NOTE | 2022-05-19 06:52 | P.ANESASSM_ITS ---
Pre-Anesthetic Assessment Height/Weight: Height 1.68 m Weight 87.543 kg Temp Pulse Resp BP Pulse Ox O2 Del Method 97.4 F L 66 18 114/66 94 05/19/22 06:30 05/19/22 06:30 05/19/22 06:30 05/19/22 06:30 05/19/22 06:30 05/19/22 06:30 Preop Diagnosis: Suspected lung cancer Operation Date: 05/19/22 07:00 Proposed Procedures p ION Robotic Bronchoscopy; 82883, 15829, 01130, 56812, 35839, 06120, 84563,R91.8(Not Applicable) - Lawrence Reyes DatarMD Familial anesthetic complications: None Was Beta Randy taken within 24 hours: N/A Was Clonidine taken within 24 hours: N/A Last intake: Intake Last Liquid Date 05/18/22 Last Liquid Time 22:00 Last Solid Date 05/18/22 Last Solid Time 20:00 Social Tobacco and No alcohol Exam alert, oriented x 3, clear to auscultation bilaterally and regular rate & rhythm Airway Mallampati: Class II Dentition: false Pulmonary Chronic Obstructive Pulmonary Disease and Sleep Apnea COPD, R SCC, R PE CV/HEM Hypertension GI Gastroesophageal Reflux Disease Metabolic Diabetes Mellitus Anesthetic Plan ASA status: 4 Anesthesia: General Risk of > 500 ml blood loss (7ml/kg in children): No Medications/Allergies Home Medications Medication Instructions Recorded Confirmed Last Taken Type amlodipine 5 mg tablet 5 mg PO BEDTIME 12/20/19 05/18/22 05/18/22 History metformin 500 mg tablet 500 mg PO DAILY 12/20/19 05/15/22 05/18/22 History sitagliptin 100 mg tablet (Januvia) 100 mg PO DAILY 12/20/19 05/15/22 05/15/22 History gabapentin 300 mg capsule 300 mg PO BEDTIME PRN Pain 01/02/20 05/18/22 05/18/22 History fluticasone fur. 100 mcg-umeclid 1 ea inhalation DAILY 01/03/20 05/15/22 05/14/22 History 62.5 mcg-vilant 25 mcg inhalat.powder (Trelegy Ellipta) nebivolol 5 mg tablet (Bystolic) 5 mg PO BEDTIME 01/29/20 05/18/22 05/18/22 History sertraline 50 mg tablet 50 mg PO BEDTIME 01/29/20 05/18/22 05/18/22 History albuterol sulfate 90 mcg/actuation 2 puff inhalation Q6H PRN 02/08/20 05/15/22 Unknown History aerosol inhaler (ProAir HFA) Shortness Of Breath diclofenac sodium 1 % topical gel 2 gm topical QID PRN Pain 02/08/20 05/15/22 05/14/22 History (Voltaren) lidocaine 5 % topical patch 1 patch topical DAILY 02/08/20 05/15/22 05/18/22 History omeprazole 40 mg capsule,delayed 40 mg PO DAILY PRN Heartburn 07/12/20 05/15/22 Unknown History release levalbuterol HCl 1.25 mg/3 mL 1.25 mg inhalation Q4H PRN 05/15/22 05/15/22 U nknown History solution for nebulization (Xopenex) shortness of breath or wheezing Allergies Allergy/AdvReac Type Severity Reaction Status Date / Time No Known Allergies Allergy Verified 05/15/22 10:29 Current Medications Generic Name Dose Route Start Last Admin Trade Name Freq PRN Reason Stop Dose Admin Sodium Chloride 1,000 mls @ 30 mls/hr 05/19/22 06:30 05/19/22 06:38 Sodium Chloride 0.9% IV 05/20/22 06:29 30 mls/hr .Q24H KELY Administration PFSH Anesthesia Medical History COPD (chronic obstructive pulmonary disease) History of COPD Hx of diabetes mellitus Hx of primary hypertension Lung nodule Surgical History Hx of bladder repair surgery Hx of carpal tunnel repair Hx of cataract extraction Hx of eye surgery Hx of hysterectomy Social History Smoking and tobacco status: current every day smoker (1 ppd) cigarettes Packs smoked per day: 1 Years cigarettes smoked: 60 Second hand smoke exposure: Yes Smoking risk assessment/counseling performed?: Yes Alcohol intake: never Counseling given: No Counseling given: No Lives independently: Yes Household members: spouse Marital status: Current occupational status: retired History of recent travel: No Current gender identity: Female Data Anesthesia Cardiac Studies: No Data to Display
--- NOTE | 2022-05-19 07:28 | SC_ITS ---
WS: [id number] INTRAOPERATIVE TECHNIQUE: 6 Spot fluoroscopic images for intraoperative purposes. FLUOROSCOPY TIME: 172.2 seconds CLINICAL INFORMATION: bronchoscopy COMPARISON: None. FINDINGS: Bronchoscopy superior segment RIGHT lower lobe. FDG-positive nodule visualized on prior PET/CT. No vi sualized pneumothorax. SC/C-arm FL for Bronchoscopy IMPRESSION: Images obtained for intraoperative purposes.
[2022-05-19] MEDS: lidocaine 1% INJ 20 mL XX (07:30)
--- NOTE | 2022-05-19 09:02 | P.OP_ITS ---
Operative Report Date of procedure: May 19, 2022 Pre-op diagnosis: Preop Diagnosis PET active Right lower lobe nodule suspected malignancy Post-op diagnosis: PET active Right lower lobe nodule suspected malignancy Procedure done: Procedure done: 76106? Bronch via Trach site 54670 Dx Bronchoscope w/Washings or airway inspection 20924 Bx Bronchoscope w/Brushings or protected brushings 82548 Dx Bronchoscope w/BAL? 01956 Dx Bronchoscopy w/Bronchial or Endobronchial biopsy(s), single or multiple sites 74839 Bronch with computer image guided Navigational Bronchoscopy 44525 Bronchoscopy w/Transbronchial lung biopsy(s), single lobe ? ? 91196 Bronchoscopy w/Transbronchial needle aspiration biopsy(s), tracheal, main stem, and/or lobar bronchus 88222 Bronchoscopy w/ therapeutic aspiration of the tracheobronchial tree (clearance of airway secretions, removal of mucus plugs) 68930 Diagnostic EBUS without biopsies 27932 EBUS Diag or Interven Peripheral lesion (radial EBUS) Brief History: 77-year-old lady coming back for follow-up office visit.? The patient is here for H/O COPD, stage I lung cancer.? The patient also has other pulmonary nodules. The patient was diagnosed with stage I lung cancer with CT guided biospy in January 2020 and has undergone radiation therapy.? She has completed her radiation therapy.? She is following up with radiation oncology team. CT on 05/01/2022 showed increase in size of posttreatment nodule in the medial RUL and there is increasing RLL sub-solid and solid spiculated nodule.? Subsequent PET/CT 05/09/2022 did not show any activity in right upper lobe nodule which she received radiation but showed activity in right lower lobe 1.8 cm nodule with SUV 7.? Also there is enlarging with RLL groundglass opacity.? There is a new 6 mm right middle lobe nodule is too small to characterize with FDG imaging. Continues to smoking 3/4 of a pack per day. SOB with exertion continues.? The patient is using Trelegy.? The patient tells me that she is doing very well.? . Using albuterol inhaler a few times a week, levalbuterol nebulizer not being used regularly. Oxygen saturation 88% on RA today. Has oxygen at home used at night and PRN through the day on exertion. Uses Bi-pap every night. Today he is scheduled for bronchoscopic evaluation Procedure: Procedure: 95750? Bronch via Trach site 64823 Dx Bronchoscope w/Washings or airway inspection 43215 Bx Bronchoscope w/Brushings or protected brushings 19454 Dx Bronchoscope w/BAL? 86725 Dx Bronchoscopy w/Bronchial or Endobronchial biopsy(s), single or multiple sites 32023 Bronch with computer image guided Navigational Bronchoscopy 66008 Bronchoscopy w/Transbronchial lung biopsy(s), single lobe ? ? 38174 Bronchoscopy w/Transbronchial needle aspiration biopsy(s), tracheal, main stem, and/or lobar bronchus 90305 Bronchoscopy w/ therapeutic aspiration of the tracheobronchial tree (clearance of airway secretions, removal of mucus plugs) 80829 Diagnostic EBUS without biopsies 03006 EBUS Diag or Interven Peripheral lesion (radial EBUS) Surgeon: Lawrence Ivory MD, [facility] ? Indication: PET active right lower lobe peripheral nodule suspicious for malignancy Anesthesia: General anesthesia. Local anesthesia: The shamar in the right and left mainstem bronchi were anesthetized with 1% lidocaine, 3 mL. Description of the procedure: The procedure was explained to the patient and the consent was obtained.? The patient was brought to the OR.? The patient underwent endotracheal intubation for general anesthesia.? Following induction of general anesthesia, the flexible bronchoscope used for initial inspection and airway clearance.? The scope was advanced through the ET tube.? The lower trachea mucosa appeared normal, no endotracheal lesion was seen.? The shamar was sharp.? The shamar, the right and left mainstem bronchi are anesthetized with 1% lidocaine.? In a systematic manner bilateral bronchial tree was then examined.? The bronchoscope was advanced into the left mainstem bronchus.? The mucosa appeared normal with no endobronchial lesions.? The left upper lobe, lingula and left lower lobe bronchi were examined up to the third subsegmental level and no abnormalities were identified.? Mucosa appeared normal with no endobronchial lesion, active bleeding or mucous plug.? There were some clear secretions in lower lobe-which were suctioned right away.? The bronchoscope was then introduced into the right mainstem bronchus.? The right upper lobe, right middle lobe and right lower lobe bronchi were examined up to the third subsegmental level and no abnormalities were identified.? The mucosa appeared normal with no endobronchial lesions, active bleeding.? There were some secretions which were suctioned right away. After initial inspection as well as airway clearance with flexible bronchoscope, ION robotic assisted navigational bronchoscope was introduced-and right lower lobe lobe lesion was accessed.? After confirming the location with radial EBUS, under the fluoroscopy guidance-we were able to obtain biopsies using brush, fine-needle, forceps.? Pathology reported no malignant cells on rapid onsite evaluation. Bronchoalveolar lavage was performed from the right lower lobe, 10 mL of saline was instilled, fluid return was 6 mL.? The fluid was mixed with blood. ? There was no overt bleeding.? The? ION robotic assisted navigational bronchoscope was retracted and endobronchial ultrasound was introduced. Using endobronchial ultrasound; did not see any lesions in hilar or mediastinal area that were big enough to biopsy.. ? Samples: #Right lower lobe lesion 1.? 1 pass with Cytobrush performed-and sample was placed in normal saline-sent to pathology 2. 1 slide with a fine-needle aspiration from right lower lobe nodule was sent for pathology review for rapid onsite evaluation-which pathology reported no malignant cells. 4 more fine-needle aspiration passes from same site were put in formalin for histopathology. 3. Targeting the same area 4 passes of forceps biopsies were taken and 1 pass was sent for rapid onsite evaluation which pathology reported no malignant cells. Remaining 3 passes were placed in formalin for histopathology 4.? BAL from right lower lobe sent for cultures as well as cytology Complications: None.The patient was extubated and brought to the PACU in stable condition. Postprocedure chest x-ray:? No evidence of pneumothorax Disposition: Patient can be discharged home in stable condition. ? I will set up clinic follow-up in 7-10 days to follow-up on biopsy results.
--- NOTE | 2022-05-19 09:15 | XR_ITS ---
WS: [id number] Exam: XR chest 1V portable [id number] Date/Time of Exam: 05/19/2022 9:17 AM Reason For Exam: post ion procedure Comparison 12/30/2020. There is a 2.3 cm right perihilar mass. This is a change since previous exam. There are chronic inter stitial changes in both lungs. Chronic left basal changes noted. Cardiomediastinal silhouette is unre markable for technique. No pneumothorax. No pleural effusion seen. Degenerative changes of the thorac ic spine. XR/XR chest 1V portable [id number] IMPRESSION: 1. New 2.3 cm right perihilar mass. 2. Chronic pulmonary parenchymal changes noted bilaterally. 3. No consolidating infiltrate or pneumothorax.
[2022-05-19] MEDS: ipratropium-albuterol 3 mL Neb INHALATION (09:23)
--- NOTE | 2022-05-19 09:31 | SUR.PHASEI ---
0913 PT TO PACU 5 HOB AT 40 DEGREES, PT AWAKE WITH NC AT 3L O2 HR SR WITH NO ECTOPY NOTED IV TO RT FA #20 WITH NS 400 ML AT KVO RATE, ID BRACELET TO LT WRIST , PT ID'D WITH 2 IDENTIFERS, PT WITH INSP RHONCHI BILAT UPPER LOBES EXP WHEEZE TO RT LOWER AND DIMINISHED MID TO LOWER LT LUNG. SEE DUONEB ORDER PER SENIOR ADVISOR AT BEDSIDE. RESP EVEN AND UNLABORED. NO OBVIOUS DISTRESS, PT USES NEBULIZER AT HOME. PT ENCOURAGED TO COUGH AND DEEP BREATH. 0923 PT UP IN BED 45 DEGREES, DUO NEB STARTED ORDERED, SATS 100% NO DISTRESS, X RAY AT BEDSIDE.
--- NOTE | 2022-05-19 10:19 | SUR.PHASEI ---
0935 LUNGS NOW CLEAR OF RHONCHI AND WHEEZES, BUT STILL DIMINISHED ON BOTH SIDES LOWER LOBES NOW. PT AWAKE ALERT TALKATIVE REQUESTS COFFEE NO OBVIOUS DISTRESS NOTED HANDOFF AT BEDSIDE WITH VISHAL MARQUEZ.
--- NOTE | 2022-05-19 10:21 | SUR.PHASEI ---
LATE NENTRY ABOVE HANDOFF ENTRY SHOULD BE TIMED AT 0950. PT TO OPS BAY 9
[2022-05-19 11:58] LABS: Glucose Point of Care 144 mg/dL (70-110)
--- NOTE | 2022-05-19 16:26 | ANE.PACU2 ---
Inpatient post-anesthesia follow up: Airway intact: Yes Vital signs: Temperature 97.6 F Pulse Rate 75 Respiratory Rate 18 Blood Pressure 129/74 Pulse Oximetry 93 Oxygen Delivery Me thod Room Air Oxygen Flow Rate 3 Fraction of Inspir ed Oxygen Hydration adequate: Yes Nausea and vomiting: No Pain level: 1 Mental status: Baseline
== END 2022-05-19 10:29 | disposition home or self-care (01) ==
PROVIDERS: PCP Family Medicine; Visit Provider Internal Medicine Pulmonary Disease
PROC: 0BJ08ZZ Inspection of Tracheobronchial Tree, Via Natural or Artificial Opening Endoscopic (ICD-10-PCS; CPT 31622; principal; 2022-05-19 07:00)
DX: C34.91 Malignant neoplasm of unspecified part of right bronchus or lung (principal); J44.9 Chronic obstructive pulmonary disease, unspecified; G47.30 Sleep apnea, unspecified; I26.99 Other pulmonary embolism without acute cor pulmonale; F17.210 Nicotine dependence, cigarettes, uncomplicated
CPT/HCPCS: 31625; 31627; 31654; 36416; 71045; 76000; 80503; 82962; 87070; 87205; 88305; 88342; 93312; J1100; J2370; J2704; J3010; J3490; J7030

== ENCOUNTER 2022-05-22 09:48 | Oncology outpatient (recurring) (ONCR) | payer MEDICARE, OTHER, SELFPAY ==
--- NOTE | 2022-05-06 09:02 | ONCRAD EPV_ITS ---
Radiation Oncology Follow-Up Note Patient Name: Dina Abrams Date of : 1945 Date of Service: 05/06/2022 Attending Physician: Ge Perez M.D. Dina Abrams returned to my office this morning for a routinely scheduled follow-up appointment. 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 SABR was delivered between the dates of July 23, 2020 through August 02, 2020. A prescribed dose of 50 Gy was delivered in five fractions encompassing [address] ordered on October 27, 2021 demonstrated stability of the right upper lobe lesion that measured 0.9 cm x 1.3 cm and a slight increase in size of a semi-solid right lower lobe nodule. A surveillance CT of the chest obtained on January 23, 2022 described no significant change in the right upper-lobe and the right middle-lobe nodules. Consolidation was noted in the right lower lobe with a slight increase in size of the right lower lobe nodule. The mediastinal and right hilar lymphadenopathy were relatively stable. A repeat CT scan requested on May 01, 2022 (independently reviewed in [facility]) identified a slight increase in the right upper-lobe nodule (2 cm x 1 cm), an accretion within the right lower-lobe mass (1.5 cm x 1.6 cm), more consolidation of the sub-pleural ground-glass lesion in the right lower-lobe, and the pancreatic duct was dilated. On physical examination, she weighed 194 lbs. The temperature was 96.2 ???F and her blood pressure was 118/74 mmHg. The pulse was 90 bpm and her respiratory rate was 19 breaths per minute. The oxygen saturation while breathing ambient are was 92%. In summary, Ms. Abrams returned for a routine radiotherapy follow-up. She has discontinued Elliquis for a previously identified pulmonary embolism of the right lower-lobe pulmonary segmental and sub-segmental arteries. I also will request a PET scan to evaluate the new CT discoveries. Signed by: Dr. Ge Perez 05/06/2022 9:41:59 AM
--- NOTE | 2022-05-22 10:30 | ONCRAD EPV_ITS ---
Radiation Oncology Follow-Up Note Patient Name: Dina Abrams Date of : 1945 Date of Service: 05/22/2022 Attending Physician: Ge Perez M.D. Dina Abrams returned to my office to review a recent PET scan that was ordered after a surveillance thoracic CT scan obtained on May 01, 2022 reported an increase in size of a right lower lobe lesion. The PET imaging (independently reviewed in [facility]) obtained on May 09, 2022 demonstrated a 1.8 cm nodule (SUV 7) within the superior segment of the right lower lobe of the lung and a 6 mm solid nodule in the right middle lobe that was too small to characterize, An ION robotic-assisted navigational bronchoscopy was performed by Lawrence Ivory M.D. on May 19, 2022. A biopsy from the right lower lobe lesion identified a high-grade malignancy consistent with a non-small cell carcinoma. 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 SABR was delivered between the dates of July 23, 2020 through August 02, 2020. A prescribed dose of 50 Gy was delivered in five fractions encompassing 11 elapsed days. On physical examination, she weighed 193 lbs. The temperature was 97.8 ???F and her blood pressure was 120/61 mmHg. The pulse was 86 bpm and her respiratory rate was 18 breaths per minute. The oxygen saturation while breathing ambient are was 90%. In summary, Ms. Abrams returned to discuss possible treatment options. I discussed with Ms. Abrams The [place] [employer] for lung cancer and specifically the patient's clinical stage IA2 (T1bN0) lung cancer corresponding to her disease and The National Comprehensive Cancer Network Guidelines recommending surgical resection in operable patients. However, for patients deemed medically inoperable, stereotactic radiotherapy is preferable. I also canvassed the RTOG 0236 phase II trial that enrolled non-small cell lung cancer patients with peripheral T1 and T2 and medical conditions precluding surgical treatment to SABR. The 3-year primary tumor local control was 97% with an overall median survival of 48 months and the SPACE trial that randomized stage I non-small cell lung cancer patients to SABR or conventional fractionated radiotherapy. Progression free survival was improved and a significant decrement in adverse events was documented in the SABR treatment arm. I would endorse an ultra-hypofractionated course of stereotactic radiotherapy. A computed tomographic radiotherapy planning scan in the treatment position will be performed and co-registered to the patient's staging PET CT scan to identify the gross tumor volume. Additionally, a 4-dimensional computed tomographic will be acquired for radiotherapy planning to delineate the internal tumor volume positioning. The potential toxicities of stereotactic body radiotherapy to the lung were reviewed. The patient has verbalized understanding and would like to proceed as recommended. The patient's medical treatment plan was discussed with Lawrence Ivory M.D. Signed by: Dr. Ge Perez 05/22/2022 10:30:47 AM
== END 2022-06-03 23:59 | disposition home or self-care (01) ==
PROVIDERS: PCP Family Medicine; Visit Provider Radiology Radiation Oncology
DX: C34.81 Malignant neoplasm of overlapping sites of right bronchus and lung (principal); C77.8 Secondary and unspecified malignant neoplasm of lymph nodes of multiple regions
CPT/HCPCS: 99213; 99215

== ENCOUNTER 2022-06-12 08:53 | Oncology outpatient (recurring) (ONCR) | payer MEDICARE, OTHER, SELFPAY ==
--- NOTE | 2022-06-04 | CT_ITS ---
Radiation Therapy Planning CT images; total exam DLP: 1084.08 mGy-cm MTDD
--- NOTE | 2022-06-12 09:01 | N.ONRD TS_ITS ---
SABR Treatment Summary Patient Name: Dina Abrams Date of : 1945 Date of Service: 06/12/2022 Attending Physician: Ge Perez M.D. Dina Abrams has completed stereotactic ablative body radiotherapy for the management of a recurrent lung cancer. 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 SABR was delivered between the dates of July 23, 2020 through August 02, 2020. A prescribed dose of 50 Gy was delivered in five fractions encompassing [address] elapsed [address] A surveillance [address] scan requested on May 01, 2022 identified a slight increase in the right upper-lobe nodule (2 cm x 1 cm), an accretion within the right lower-lobe mass (1.5 cm x 1.6 cm), more consolidation of the sub-pleural ground-glass lesion in the right lower-lobe, and the pancreatic duct was dilated. PET imaging obtained on May 09, 2022 demonstrated a 1.8 cm nodule (SUV 7) within the superior segment of the right lower lobe of the lung and a 6 mm solid nodule in the right middle lobe that was too small to characterize, An ION robotic-assisted navigational bronchoscopy was performed by Lawrence Ivory M.D. on May 19, 2022. A biopsy from the right lower lobe lesion identified a high-grade malignancy consistent with a non-small cell carcinoma. SABR was delivered between the dates of June 08, 2022 through June 12, 2022. A prescribed dose of 54 Gy was delivered in three fractions encompassing 5 elapsed days. The right lower-lobe lesion was treated utilizing an intensity modulated radiotherapy plan with a step and shoot treatment technique. The plan required six gantry angles (150???, 180???, 210???, 240???, 280???, and 310???) with a collimator rotation of 0??? in a partial arc design. The field sizes spanned 5 cm x 5 cm to 5.8 cm x 5 cm. The SSDs measured a minimum of 84.7 cm to a maximum of 94.8 cm. The ports delivered 931 MU, 1050 MU, 799 MU, 661 MU, 776 MU, and 840 MU corresponding to the gantry angles described. Low energy photons were prescribed. All treatments were performed with the [employer] linear accelerator and an isocentric technique. Low energy photons were prescribed. The dose was calculated by Anisotropic Analytic Algorithm with the plan normalized to deliver 100% of the prescription dose to 95% of the planning target volume. Signed by: Dr. Ge Perez 06/12/2022 9:00:53 AM
--- NOTE | 2022-06-12 09:51 | ONCRAD TMN_ITS ---
SABR Treatment Management Note Patient Name: Dina Abrams Date of : 1945 Date of Service: 06/12/2022 Attending Physician: Ge Perez M.D. Dina Abrams is a 77 year-old white female diagnosed with a recurrent lung cancer. 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 SABR was delivered between the dates of July 23, 2020 through August 02, 2020. A prescribed dose of 50 Gy was delivered in five fractions encompassing 11 elapsed days. A surveillance CT scan requested on May 01, 2022 identified a slight increase in the right upper-lobe nodule (2 cm x 1 cm), an accretion within the right lower-lobe mass (1.5 cm x 1.6 cm), more consolidation of the sub-pleural ground-glass lesion in the right lower-lobe, and the pancreatic duct was dilated. PET imaging obtained on May 09, 2022 demonstrated a 1.8 cm nodule (SUV 7) within the superior segment of the right lower lobe of the lung and a 6 mm solid nodule in the right middle lobe that was too small to characterize, An ION robotic-assisted navigational bronchoscopy was performed by Lawrence Ivory M.D. on May 19, 2022. A biopsy from the right lower lobe lesion identified a high-grade malignancy consistent with a non-small cell carcinoma. The patient has received 54 Gy of a prescribed 54 [place] (SABR) delivered with an intensity modulated radiotherapy plan utilizing a step and shoot treatment technique. Upon review of systems, she denied any changes in her pulmonary function. On physical examination, the patient weighed 193 lbs. Her temperature was 98 ???F and the blood pressure was 131/66 mmHg. The pulse was 73 bpm and her respiratory rate was 20. Oxygen saturation while breathing room air was 95%. Stereotactic ablative body radiotherapy was completed today. She will return for a post-radiotherapy evaluation in 1 month. Signed by: Dr. Ge Perez 06/12/2022 9:49:42 AM
== END 2022-07-04 23:59 | disposition home or self-care (01) ==
PROVIDERS: PCP Family Medicine; Visit Provider Radiology Radiation Oncology
DX: Z51.0 Encounter for antineoplastic radiation therapy (principal); C34.81 Malignant neoplasm of overlapping sites of right bronchus and lung
CPT/HCPCS: 77300; 77301; 77334; 77336; 77338; 77373; 77470; 99024

== ENCOUNTER 2022-08-07 09:56 | Outpatient (CLI) | payer MEDICARE, OTHER, SELFPAY ==
--- NOTE | 2022-08-07 10:00 | CTR_ITS ---
PROCEDURE INFORMATION: Exam: CT Chest Without Contrast; Diagnostic Exam date and time: 08/07/2022 10:19 AM Age: 77 years old Clinical indication: Prior radiation therapy - clinical stage ia3 (t1cn0) invasive squamous cell carcinoma of. The right upper lobe of the lung. Condition or disease; Lung condition and disease; Cancer of the lung; Lobe, upper; Primary cancer: Lung. Invasive squamous cell carcinoma of. The right upper lobe of the lung. Follow-up oncological assessment; Additional info: Evaluate response to sabr to rul and rll lesions. She completed stereotactic ablative body radiotherapy. In June 2022 for the management of a recurrent non-small cell lung cancer. TECHNIQUE: Imaging protocol: Diagnostic computed tomography of the chest without contrast. Radiation optimization: All CT scans at this facility use at least one of these dose optimization techniques: automated exposure control; mA and/or kV adjustment per patient size (includes targeted exams where dose is matched to clinical indication); or iterative reconstruction. Other protocol: This patient has received 5 known CTs and 0 known cardiac nuclear medicine studies in the 12 months prior to the current study. COMPARISON: CT chest [facility] [id number] 05/01/2022 8:05 AM RADIATION DOSE METRICS: Total DLP (mGy-cm): 431.5 FINDINGS: Lungs: Centrilobular and paraseptal emphysema is present. Evolving posttreatment pleuroparenchymal scarring in the right upper lobe. Previously seen scattered bilateral ground-glass nodules have improved. There is a new spiculated nodule in the posterior right lower lobe measuring 1.3 cm. Interval increase in size of patchy subpleural ground-glass opacity in the lateral right lower lobe measuring 2.7 cm (previously 2.0 cm interval decrease in size of subpleural nodule in the lateral right middle lobe measuring 0.6 cm (previously 1.0 cm). Pleural spaces: Unremarkable. No pneumothorax. No pleural effusion. Heart: Normal heart size. Coronary atherosclerotic calcifications seen. No pericardial effusion. Lymph nodes: Interval decrease in size of precarinal lymph node measuring 1.0 cm in transverse dimension (previously 1.2 cm). Vasculature: Mild diffuse atherosclerotic disease is present. Unchanged ectatic ascending aorta measuring 3.8 cm in diameter. Liver: The liver demonstrates volume redistribution and nodular contour, consistent with cirrhosis. No discrete mass lesion seen. Unchanged 1.4 cm hypodense lesion about the posterior aspect of the right hepatic lobe. Pancreas: There is prominence of the partially included pancreas with apparent ductal dilatation and mild stranding of the surrounding fat, concerning for pancreatitis. Bones/joints: Degenerative changes of the spine seen. Soft tissues: Unremarkable. CT/CT chest wo con [id number] IMPRESSION: 1. Imaging findings suggestive of mixed response to treatment with evolving posttreatment pleuroparenchymal scarring in the right upper lobe, interval resolution of multiple scattered bilateral ground-glass nodules, interval decrease in size of right middle lobe nodule, new posterior right lower lobe nodule and interval increase in size of lateral right lower lobe subpleural ground-glass opacity. 2. Stable ectatic ascending aorta. 3. Cirrhotic liver. 4. Partially included pancreas with inflammatory changes, concerning for pancreatitis. Clinical correlation is recommended.
== END 2022-08-07 09:57 | disposition home or self-care (01) ==
LOC: RAD 10:01
PROVIDERS: PCP Family Medicine; Visit Provider Radiology Radiation Oncology
DX: C34.91 Malignant neoplasm of unspecified part of right bronchus or lung (principal)
CPT/HCPCS: 71250

== ENCOUNTER 2022-09-30 09:13 | Outpatient (CLI) | payer MEDICARE, OTHER, SELFPAY ==
--- NOTE | 2022-09-30 09:27 | MM_ITS ---
WS: [id number] BILATERAL DIAGNOSTIC DIGITAL TOMOSYNTHESIS MAMMOGRAM WITH CAD HISTORY: HX OF BREAST CA COMPARISON: 09/26/2021, 09/02/2020 and 08/04/2019 Bilateral CC, ML and MLO views with tomosynthesis and synthetic mammography submitted. Computer aided detection analyzed. Breast composition: There are scattered areas of fibroglandular density. No suspicious masses, microc alcifications or architectural distortion. Benign calcifications in each breast. Minimal postoperativ e changes RIGHT breast. MM/[place] [id number] IMPRESSION: BI-RADS: 2-Benign FOLLOW UP: 1 Year Follow-up
== END 2022-09-30 09:14 | disposition home or self-care (01) ==
PROVIDERS: PCP Family Medicine; Visit Provider Family Medicine
DX: Z85.3 Personal history of malignant neoplasm of breast (principal)
CPT/HCPCS: 77062; G0279

== ENCOUNTER 2022-11-04 09:06 | Outpatient (CLI) | payer MEDICARE, OTHER, SELFPAY ==
[2022-11-04] MEDS: iohexol 350 mg/mL 500 mL Btl (per mL) IV (09:26)
--- NOTE | 2022-11-04 09:30 | CTR_ITS ---
PROCEDURE INFORMATION: Exam: CT Chest With Contrast; Diagnostic Exam date and time: 11/04/2022 9:23 AM Age: 77 years old Clinical indication: Condition or disease; Lung condition and disease; Pulmonary nodule, solitary; Follow-up oncological assessment; Additional info: Follow-up for sabr to rul and rll nodules TECHNIQUE: Imaging protocol: Diagnostic computed tomography of the chest with contrast. Radiation optimization: All CT scans at this facility use at least one of these dose optimization techniques: automated exposure control; mA and/or kV adjustment per patient size (includes targeted exams where dose is matched to clinical indication); or iterative reconstruction. Contrast material: OMNI 350; Contrast volume: 95 ml; Contrast route: INTRAVENOUS (IV); REPORTING DATA: Count of CT and Cardiac NM exams in prior 12 months: This patient has received 5 known CTs and 0 known cardiac nuclear medicine studies in the 12 months prior to the current study. COMPARISON: CT chest wo con [id number] 08/07/2022 10:19 AM RADIATION DOSE METRICS: Total DLP (mGy-cm): 316.02 FINDINGS: Thyroid: The partially imaged bilateral thyroid lobes are unremarkable. Lungs: 2.1 cm suprahilar central right upper lobe mass with anterior and posterior segmental associated scarring, stable. Right lower lobe medial basilar segment 7 mm noncalcified nodule, stable. Superior segment right lower lobe spiculated nodule measuring approximally 14.3 x 11.4 mm, previously approximally 15.1 x 12.8 mm (remeasured on prior study). Stable right middle lobe lateral segment noncalcified pulmonary nodule. Stable right upper lobe anterior segment small noncalcified pulmonary nodules. Right lower lobe lateral basilar segment 2.8 x 2.0 cm ground-glass opacity, stable. Pleural spaces: No pneumothorax. No pleural effusion. Heart: No cardiomegaly. No pericardial effusion. Coronary arteries: No coronary artery calcifications. Mitral annular calcification is present. Lymph nodes: No enlarged lymph nodes. Vasculature: Moderate aortic arch, branch, and descending thoracic aortic atherosclerotic calcification without ectasia. Liver: Posterior right lobe hepatic 17 mm peripheral hypodensity, stable. Gallbladder and bile ducts: The common bile duct measures 7.8 mm, age-appropriate. No ductal calculi as visualized. Pancreas: Pancreatic ductal dilatation, measuring up to 12.7 mm, previously present. Kidneys and ureters: Bilateral renal upper pole cortical scarring. Bones/joints: Thoracic spine vertebral body marginal osteophytes are noted at multiple levels. No destructive bony process identified. Soft tissues: Unremarkable. CT/CT chest w con* [id number] IMPRESSION: 1. Right upper lobe suprahilar mass with associated scarring, stable. 2. Stable additional noncalcified bilateral pulmonary nodules and right lateral basilar pulmonary ground-glass opacity. 3. Bilateral renal upper pole cortical scarring. 4. Nonspecific hepatic hypodensity, stable. 5. Pancreatic ductal dilatation, previously present.
== END 2022-11-04 09:07 | disposition home or self-care (01) ==
LOC: RAD 09:08
PROVIDERS: PCP Family Medicine; Visit Provider Radiology Radiation Oncology
DX: C34.91 Malignant neoplasm of unspecified part of right bronchus or lung (principal)
CPT/HCPCS: 71260; Q9967

== ENCOUNTER → 2022-11-05 14:05 | Outpatient (BNVA) | payer MEDICARE, OTHER, SELFPAY | PROVIDERS: PCP Family Medicine; Referring Provider Family Medicine; Visit Provider Student in an Organized Health Care Education/Training Program | DX: M17.11 Unilateral primary osteoarthritis, right knee (principal) | CPT/HCPCS: 20610; 73560; 73565; 99204; J3301 ==

== ENCOUNTER 2022-11-06 09:19 | Oncology outpatient (recurring) (ONCR) | payer MEDICARE, OTHER, SELFPAY ==
--- NOTE | 2022-11-06 09:51 | ONCRAD EPV_ITS ---
Radiation Oncology Follow-Up Note Patient Name: Dina Abrams Date of : 1945 Date of Service: 11/06/2022 Attending Physician: Ge Perez M.D. Dina Abrams returned to my office this morning for a routinely scheduled follow-up appointment. She completed stereotactic ablative body radiotherapy in June 2022 for the management of a recurrent non-small cell lung cancer. 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 SABR was delivered between the dates of July 23, 2020 through August 02, 2020. A prescribed dose of 50 Gy was delivered in five fractions encompassing 11 elapsed days. A surveillance CT scan requested on May 01, 2022 identified a slight increase in the right upper-lobe nodule (2 cm x 1 cm), an accretion within the right lower-lobe mass (1.5 cm x 1.6 cm), more consolidation of the sub-pleural ground-glass lesion in the right lower-lobe, and the pancreatic duct was dilated. PET imaging obtained on May 09, 2022 demonstrated a 1.8 cm nodule (SUV 7) within the superior segment of the right lower-lobe of the lung and a 6 mm solid nodule in the right middle lobe that was too small to characterize, An ION robotic-assisted navigational bronchoscopy was performed by Lawrence Ivory M.D. on May 19, 2022. A biopsy from the right lower-lobe lesion identified a high-grade malignancy consistent with a non-small cell carcinoma. SABR was delivered between the dates of June 08, 2022 through June 12, 2022. A prescribed dose of 54 Gy was delivered in three fractions encompassing [address] imaging completed on August 07, 2022 demonstrated a decrease in size of the right lower-lobe lesion (1.1 cm x 1 cm x 1cm) and continued post-treatment effect within the right upper-lobe nodule. Surveillance thoracic CT scan (independently reviewed in [facility]) ordered on November 04, 2022 reported no changes in the right lower-lobe spiculated nodule measuring 1.4 cm x 1.1 cm and the right upper-lobe mass measuring 2.1 cm. On review of systems, she did not report any changes in her pulmonary function. On physical examination, she weighed 179 lbs. The temperature was 97.4 ???F and the blood pressure was 105/60 mmHg. The pulse was 78 bpm and her respiratory rate was 18 breaths per minute. Oxygen saturation while breathing room air was 95 %. Bronchial breath sounds were auscultated in the posterior lung casas. In summary, Ms. Abrams returned for a routine post radiotherapy follow-up. Her pulmonary disease remains stable. She will return in [address] imaging according to NCCN Guidelines. Signed by: Ge Perez 11/06/2022 10:47:48 AM
== END 2022-12-02 23:59 | disposition home or self-care (01) ==
PROVIDERS: PCP Family Medicine; Visit Provider Radiology Radiation Oncology
DX: C34.81 Malignant neoplasm of overlapping sites of right bronchus and lung (principal); Z92.3 Personal history of irradiation; F17.210 Nicotine dependence, cigarettes, uncomplicated
CPT/HCPCS: 99213

== ENCOUNTER → 2022-11-16 09:30 | Outpatient (BNVA) | payer MEDICARE, OTHER, SELFPAY | PROVIDERS: PCP Family Medicine; Visit Provider Internal Medicine Pulmonary Disease | DX: C34.11 Malignant neoplasm of upper lobe, right bronchus or lung (principal); J44.9 Chronic obstructive pulmonary disease, unspecified; G47.30 Sleep apnea, unspecified; I26.99 Other pulmonary embolism without acute cor pulmonale; F17.210 Nicotine dependence, cigarettes, uncomplicated; Z99.81 Dependence on supplemental oxygen; Z86.73 Personal history of transient ischemic attack (TIA), and cerebral infarction without residual deficits | CPT/HCPCS: 99214 ==

== ENCOUNTER 2023-02-08 12:48 | Outpatient (CLI) | payer MEDICARE, OTHER, SELFPAY ==
--- NOTE | 2023-02-08 13:00 | CT_ITS ---
WS: [id number] CT CHEST TECHNIQUE: Noncontrast CT of the chest with coronal and sagittal reformatted images. CLINICAL INFORMATION: Surveillance post SABR to RUL and RLL lesions COMPARISON: November 04, 2022 DLP: 286.[address] scans at [facility] use at least one of these dose optimization techniques: automated e xposure control; mA and/or kV adjustment per patient size (includes targeted exams where dose is matc hed to clinical indication); or iterative reconstruction. FINDINGS: Stable hazy groundglass opacity RIGHT lower lobe laterally measuring 2.7 CM. Noncalcified nodule RIGH T lower lobe posterolaterally measuring 11 mm is unchanged. Associated pleural thickening in this are a. RIGHT hilar lymphadenopathy appears stable. Stable 12 mm anterior mediastinal lymph nodes unchange d. Spiculated RIGHT suprahilar mass extending to the periphery with pleural thickening appears stable. L eft-sided noncalcified nodule LEFT lower lobe measuring 6 mm is unchanged. Moderate chronic emphysema tous changes. Aortic calcification. Normal caliber thoracic aorta. Enlarged main pulmonary arteries can be seen wit h pulmonary arterial hypertension. Coronary calcification. Normal GE junction. Cystic dilatation of t he pancreatic duct is unchanged in appearance. Adrenal glands appear normal. Tiny low-attenuation les ion undersurface RIGHT hepatic lobe is unchanged likely hepatic cyst. Hypertrophic changes thoracic s pine. CT/CT chest wo con [id number] IMPRESSION: 1. Overall no significant changes compared to previous. 2. Stable RIGHT suprahilar spiculated mass extending into the RIGHT upper lobe is stable. 3. Stable RIGHT hilar lymphadenopathy. 4. Stable hazy groundglass opacity RIGHT lower lobe laterally 5. Stable noncalcified spiculated nodule in the superior segment RIGHT lower l obe laterally measuring 11 mm. 6. Stable nodule LEFT lower lobe measuring 6 mm. 7. Cystic pancreatic ductal dilatation unchanged.
== END 2023-02-08 12:49 | disposition home or self-care (01) ==
LOC: RAD 12:50
PROVIDERS: PCP Family Medicine; Visit Provider Radiology Radiation Oncology
DX: C34.91 Malignant neoplasm of unspecified part of right bronchus or lung (principal)
CPT/HCPCS: 71250

== ENCOUNTER 2023-02-10 09:26 | Oncology outpatient (recurring) (ONCR) | payer MEDICARE, OTHER, SELFPAY ==
--- NOTE | 2023-02-10 11:10 | ONCRAD EPV_ITS ---
Radiation Oncology Established Patient Visit Patient: Dnia Abrams [id number] : 1945 Age: 78 Sex: Female> Dictated by: Moose Bridges Date of Service: 02/10/2023 Referring Physician(s) : Dr. Hugo Coronel Diagnosis: C34.30 - Malignant neoplasm of lower lobe, unspecified bronchus or lung, Diagnosed 05/19/2022 (Active) Stage IA2, T1b, N0, M0 C34.11 - Malignant neoplasm of upper lobe, right bronchus or lung, Diagnosed 05/09/2020 (Active) Stage IA3, T1c, N0, M0 R91.1 - Solitary pulmonary nodule, Diagnosed 01/25/2020 (Active) D05.11 - Intraductal carcinoma in situ of right breast, Diagnosed 08/05/2016 (Active) Breast cancer. 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 She underwent a right partial mastectomy by Dr. Neely on 07/12/2012. Her surgical pathology showed a 1.2 cm high-grade DCIS, ER negative, [place] negative, HER-2/florian negative. She then received 6080 cGy adjuvant radiation treatment, completed on 09/29/2012. She did not receive hormonal chemoprevention. She was seen initially by Dr. Small on 08/08/2015 . Her last mammogram was 06/21/2015, BI-RADS 2c. She indicated that her prior primary care doctor, Dr. Reis, had been concerned about a solitary pulmonary nodule that reportedly was seen on a CT scan in January 2015. She is being followed on observation/expectant management. Her other medical illnesses include hypertension, type II diabetes, COPD, obstructive sleep apnea, degenerative arthritis, and anxiety/depression. She has a history of smoking 1 pack of cigarettes daily. Surveillance CT scan of the chest on 04/16/2016 showed a 5 mm right upper lobe pulmonary nodule which appeared stable since 2014. CT scan chest done on 02/02/2017 showed multiple noncalcified nodules in the right upper lobe 3 mm nodule right lower lobe semisolid 6 mm right lower lobe nodule and CT scan finding were discussed with Dr. Massey today and he said he don't see any significant difference when compared with CT scan of chest on 04/16/2016 except 3 mm nodule right lower lobe which is new CT scan of the chest done on 11/08/[address] scan of chest done on 11/02/2017 and 02/02/2017 showed stable right upper lobe 4 mm nodule. And slight increase in size of right lower lobe opacification/groundglass attenuation since 11/02/2017, one of the nodule has become more solid measuring 7.7 mm could be post inflammatory but early neoplastic changes should be considered. Chronic emphysema no lymphadenopathy follow-up CT scan chest recommended in 3-6 months. Follow-up Mammogram done in June 2018, was benign CT chest was done on 05/09/2019 showed semisolid groundglass nodule in the right lower lobe laterally measuring 8mm slightly more prominent compared to 11/08/2018 and definitely increased since 11/02/2017, increase in sizes suspicious for neoplasm and Patient was referred to Dr. Galo for right lower lobe lung nodule and Dr. Galo order CT PET scan which was done on May 27, 2019 showed there is a 9 mm nodule in the central right upper lobe with SUV of 4.5 and has a high probability of malignancy biopsy was recommended. 2 semisolid nodules in the lateral right lower lobe are FDG negative and dominant nodule measured 0.8 x 1.4 cm, Dr. Galo referred her to Dr. Murrell gas leak inspector who did evaluation and patient underwent follow-up CT scan of chest on December 14, 2019 which showed increasing lobulated solid mass in the central right upper lobe of the lung which measures 1.6 x 1.3 x 1.3 cm compared to 0.9 cm in May 2019 and right lower lobe nodule also continues to slowly increase in size measured 1.5 cm. And new sub-solid nodule measuring 7 mm in the central right upper lobe. Subsequently on December 16, [address] PET scan which confirmed central right upper lobe nodule measuring 1.4 cm with SUV of 15.7 compared to 0.9 cm with SUV of 4.5 seen on May 27, 2019 CT PET scan and semisolid nodule in the right lower lobe is unchanged in size and remained FDG negative. There is a new solid 8 mm nodule in the right upper lobe, too small to characterize with FDG imaging. Patient underwent bronchoscopy on January 03, 2020 and multiple samples were obtained including station 7 lymph node station 10 R lymph node, right upper lobe and all of them came back negative for malignancy, Patient underwent follow-up CT scan of chest on March 18, 2020 which showed stable right suprahilar suspected neoplasm previously seen on CT PET scan 1.4 x 1.4 cm. Numerous new pulmonary opacities bilaterally subcentimeter in size suspicious for metastatic disease largest opacities measuring 5 to 6 mm. Stable prominent 11 mm anterior mediastinal lymph node. No progressed lymphadenopathy. No other significant interval changes. Stable 1.6 cm FDG negative semisolid opacity in the right lower lobe, Patient was seen by Dr. Murrell gas leak inspector who referred her to [facility] for lung biopsy And on May 09, 2020, patient underwent CT-guided right upper lobe lung biopsy and final pathology report came back invasive squamous cell carcinoma Staging CT PET scan done on June 08, 2020 showed right upper lobe pulmonary mass measured 2.1 cm in diameter with SUV of 11.8 up from 1.4 cm with SUV of 15.7 on prior study done on December 16, 2019. A semisolid/groundglass opacity in the lateral right lower lobe is now larger at 1 x 2 cm but remains FDG negative. And 8 mm right upper lobe nodule is unchanged and remained FDG negative. Other subcentimeter nodules are unchanged from prior study. Patient underwent a follow-up CT scan of the chest 02/08/2023. The noncontrast scan showed overall no significant changes compared to previous results. The right suprahilar spiculated mass extending into the right upper lobe is stable. The right hilar lymphadenopathy is stable. Right lower lobe lateral hazy groundglass opacity is stable. Noncalcified spiculated nodule in the superior segment of the right lower lobe laterally measuring 11 mm is stable. Lower left lobe nodule measuring 6 mm also stable. Came for follow-up, denies any specific complaints, no fever chills, no nausea or vomiting, no diarrhea constipation no hemoptysis or hematemesis but she is anxious about her CT scan report and findings. She reports moderate weight loss secondary to changes in her diet. Her recently got dentures and was switched to a liquid diet which she has followed with him. She reports improvement in her blood sugars and hemoglobin A1c. She continues to smoke 1 pack of cigarettes per day. Radiotherapy to Date: Course: RT Lung SBRT, Treatment Site: SBRT RUL 5FX, Ref. ID: [id number], Energy: 6X, Dose/Fx (cGy): 1,000, #Fx: 5 / 5, Dose Correction (cGy): 0, Total Dose (cGy): 5,000, Start Date: 07/23/2020, End Date: 08/02/2020, Elapsed Days: 10 SABR - RLL 2021, Treatment Site: SABR ??? RLL, Ref. ID: [id number], Energy: 6X, Dose/Fx (cGy): 1,800, #Fx: 3 / 3, Dose Correction (cGy): 0, Total Dose (cGy): 5,400, Start Date: 06/08/2022, End Date: 06/12/2022, Elapsed Days: 4 Current History: Current Medications: Albuterol Sulfate, aleve, amLODIPine Besylate, apixaban, aspirin, bystolic, gabapentin, januvia, lidoderm, metFORMIN HCl, sertraline HCl, trelegy Ellipta, voltaren. Allergies: Zostavax. Current Complaints / Review of Systems: . Vital Signs: Performed on 02/10/2023 9:51 AM BMI - 27.794 kg/m2 (high), Height - 66 in, Weight - 172.2 lbs, Temperature - 96.5 f, Pulse - 66 /min, Respiration - 16 /min, O2 Sat - 96 %, Pain - 0, Fatigue - 7 and BP - 140/ 65 mm(hg). Physical Exam: General: Alert and oriented x 3. No acute distress. HEENT: Normocephalic, atraumatic. Extraocular Movements Intact: Pupils Equal, Round, Reactive to Light and Accommodation: Sclerae anicteric. Oral cavity is clear without lesions, masses or ulcers. NECK: Supple without supraclavicular or jugular lymphadenopathy. LUNGS: Clear to auscultation bilaterally without rales, rhonchi or wheeze. HEART: Regular rate and rhythm, normal S1 and S2 without murmur, gallop or rub. MUSCULOSKELETAL: No tenderness or percussion pain over the axial skeleton, scapulae or pelvis. ABDOMEN: Soft, nontender, nondistended without masses or organomegaly. Bowell sounds are present. EXTREMITIES: No peripheral edema is identified. Limited motor and sensory examination are grossly intact and symmetric bilaterally. NEUROLOGIC: Cranial nerves II ???XII are grossly intact. Normal sensation, strength 5/5 in all extremities, normal gait, no ataxia. Performance Status: Lab: None pending. Pathology: Primary, c34.30 - malignant neoplasm of lower lobe, unspecified bronchus or lung, Diagnosed 05/19/2022 (active) stage ia2, t1b, n0, m0, Primary, c34.11 - malignant neoplasm of upper lobe, right bronchus or lung, Diagnosed 05/09/2020 (active) stage ia3, t1c, n0, m0, Primary, r91.1 - solitary pulmonary nodule, Diagnosed 01/25/2020 (active) and Primary, d05.11 - intraductal carcinoma in situ of right breast, Diagnosed 08/05/2016 (active). Imaging: See HPI Impression: Dina Abrams has recovered well from the acute effects of her external beam radiation therapy and has no radiographic evidence of recurrence. Routine follow-up is scheduled in [address] scan to be obtained prior to that visit. She has been encouraged to discontinue smoking. Signed by: 02/10/2023 11:08:35 AM <<Signature on File>> Time spent with patient: CPT Code: CPT Code:
== END 2023-03-04 23:59 | disposition home or self-care (01) ==
LOC: ONCMED 09:26
PROVIDERS: PCP Family Medicine; Visit Provider Radiology Radiation Oncology
DX: Z92.3 Personal history of irradiation; Z08 Encounter for follow-up examination after completed treatment for malignant neoplasm; Z85.118 Personal history of other malignant neoplasm of bronchus and lung; F17.210 Nicotine dependence, cigarettes, uncomplicated
CPT/HCPCS: 99213

== ENCOUNTER → 2023-06-10 13:28 | Outpatient (BNVA) | payer MEDICARE, OTHER, SELFPAY | PROVIDERS: PCP Family Medicine; Visit Provider Physician Assistant | DX: M17.0 Bilateral primary osteoarthritis of knee (principal) | CPT/HCPCS: 20610; 99213 ==

== ENCOUNTER → 2023-08-02 12:46 | Outpatient (BNVA) | payer MEDICARE, OTHER, SELFPAY | PROVIDERS: PCP Family Medicine; Visit Provider Podiatrist Foot & Ankle Surgery | DX: L60.3 Nail dystrophy (principal); L84 Corns and callosities; G62.9 Polyneuropathy, unspecified; E11.42 Type 2 diabetes mellitus with diabetic polyneuropathy; Z79.84 Long term (current) use of oral hypoglycemic drugs | CPT/HCPCS: 11056; 11721; 99203 ==

== ENCOUNTER 2023-08-13 10:44 | Outpatient (CLI) | payer MEDICARE, OTHER, SELFPAY ==
--- NOTE | 2023-08-13 11:00 | CT_ITS ---
WS: [id number] CT CHEST TECHNIQUE: Noncontrast CT of the chest with coronal and sagittal reformatted images. CLINICAL INFORMATION: R91.1 - Solitary pulmonary nodule COMPARISON: CT 02/08/2023 DLP: 368.[address] scans at [facility] use at least one of these dose optimization techniques: automated e xposure control; mA and/or kV adjustment per patient size (includes targeted exams where dose is matc hed to clinical indication); or iterative reconstruction. FINDINGS: Moderate to advanced chronic emphysematous changes. Spiculated opacity RIGHT hilum extending into the RIGHT upper lobe with bronchiectasis is unchanged. 10 mm opacity RIGHT RIGHT lower lobe with pleural and parenchymal scarring unchanged. Hazy groundglass opacity RIGHT lower lobe laterally measuring 2. 7 cm with slight peripheral nodularity unchanged. Stable 6 mm nodule LEFT lower lobe medially. A few prominent anterior mediastinal lymph nodes unchanged. Prominent RIGHT greater than LEFT pulmona ry arteries can be seen with pulmonary arterial hypertension. Normal caliber thoracic aorta. Aortic c alcification. Coronary calcification. No axillary lymphadenopathy. Adrenal glands are normal. Stable cystic dilatation pancreatic duct. Normal GE junction. New low-atte nuation lesions in the liver. These appear new compared to CT abdomen pelvis 07/22/2021 and suspicious for metastatic disease. Recommend further evaluation with contrast-enhanced CT abdomen pelvis with liver protocol. Partially visualized fullness in the head of the pancreas appears new compared to previous. Slight hazy indura tion in the upper abdominal mesentery. IMPRESSION: 1. Partially visualized low-attenuation lesions in the liver are new from the prior examination susp icious for metastatic disease. Recommend further evaluation with contrast-enhanced CT abdomen pelvis with liver protocol. 2. Fullness in the head of the pancreas partially visualized appears new from previous. This may be incidental but also could be further evaluated with contrast-enhanced CT abdomen pelvis. 3. Previously described pulmonary opacities are stable. Dr. Bridges not currently available. Message LEFT for Dr. Hurtado. Notified at 08/13/2023 12:19 PM.
== END 2023-08-13 10:45 | disposition home or self-care (01) ==
LOC: RAD 10:44
PROVIDERS: PCP Family Medicine; Visit Provider Radiology Radiation Oncology
DX: R91.1 Solitary pulmonary nodule (principal); K76.9 Liver disease, unspecified
CPT/HCPCS: 71250

== ENCOUNTER 2023-08-26 09:45 | Oncology outpatient (recurring) (ONCR) | payer MEDICARE, OTHER, SELFPAY ==
--- NOTE | 2023-08-19 09:45 | ONCRAD EPV_ITS ---
Radiation Oncology Established Patient Visit Patient: Aliza Arroyo [id number] : 1945> Age: 78> Sex: Female> Dictated by: Dr. Koki Weston Date of Service: 08/19/2023 Referring Physician(s) : Dr. Hugo Coronel Diagnosis: C34.30 - Malignant neoplasm of lower lobe, unspecified bronchus or lung, Diagnosed 05/19/2022 (Active) Stage IA2, T1b, N0, M0 C34.11 - Malignant neoplasm of upper lobe, right bronchus or lung, Diagnosed 05/09/2020 (Active) Stage IA3, T1c, N0, M0 R91.1 - Solitary pulmonary nodule, Diagnosed 01/25/2020 (Active) D05.11 - Intraductal carcinoma in situ of right breast, Diagnosed 08/05/2016 (Active) Mrs. Abrams is a 78-year-old lady who initially had a breast cancer back in 2012. She subsequently was found in 2014 on a routine x-ray to have a right lung nodule. This was in the millimeter range. This lesion was followed with serial CT scans and PET scans and finally in 2019 after a failed bronchoscopy attempt she was sent to [place] for a lung biopsy. Tissue was obtained but she did have a pneumothorax. The tissue showed the mass in the lung which at that time was in the centimeters range was squamous of carcinoma. In 2020 she underwent SBRT to this area. She has again been followed with serial CT scans without any evidence of progressive disease. She recently had a CT scan of the chest on August 13 and was found to have what appeared to be lesions in the liver which were low-attenuation. She also had some fullness in the head of the pancreas which was new from previous as well. I met with her today to review these results. Subjectively she is having some abdominal pain but she describes this as bilateral in the upper quadrants. She says this started after she had her diabetes medicine changed. This occurred about 8 weeks ago. She actually has discontinued the last diabetes medicine due to toxicity 2 to 3 weeks ago. She says she is lost a tremendous amount of weight as she just does not feel like she has an appetite and she feels full all the time. She has had some intermittent constipation and now has a flare of her hemorrhoids. 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 She underwent a right partial mastectomy by Dr. Neely on 07/12/2012. Her surgical pathology showed a 1.2 cm high-grade DCIS, ER negative, W[place] negative, HER-2/florian negative. She then received 6080 cGy adjuvant radiation treatment, completed on 09/29/2012. She did not receive hormonal chemoprevention. She was seen initially by Dr. Small on 08/08/2015 . Her last mammogram was 06/21/2015, BI-RADS 2c. She indicated that her prior primary care doctor, Dr. Reis, had been concerned about a solitary pulmonary nodule that reportedly was seen on a CT scan in January 2015. She is being followed on observation/expectant management. Her other medical illnesses include hypertension, type II diabetes, COPD, obstructive sleep apnea, degenerative arthritis, and anxiety/depression. She has a history of smoking 1 pack of cigarettes daily. Surveillance CT scan of the chest on 04/16/2016 showed a 5 mm right upper lobe pulmonary nodule which appeared stable since 2014. CT scan chest done on 02/02/2017 showed multiple noncalcified nodules in the right upper lobe 3 mm nodule right lower lobe semisolid 6 mm right lower lobe nodule and CT scan finding were discussed with Dr. Massey today and he said he don't see any significant difference when compared with CT scan of chest on 04/16/2016 except 3 mm nodule right lower lobe which is new CT scan of the chest done on 11/08/[address] scan of chest done on 11/02/2017 and 02/02/2017 showed stable right upper lobe 4 mm nodule. And slight increase in size of right lower lobe opacification/groundglass attenuation since 11/02/2017, one of the nodule has become more solid measuring 7.7 mm could be post inflammatory but early neoplastic changes should be considered. Chronic emphysema no lymphadenopathy follow-up CT scan chest recommended in 3-6 months. Follow-up Mammogram done in June 2018, was benign CT chest was done on 05/09/2019 showed semisolid groundglass nodule in the right lower lobe laterally measuring 8mm slightly more prominent compared to 11/08/2018 and definitely increased since 11/02/2017, increase in sizes suspicious for neoplasm and Patient was referred to Dr. Galo for right lower lobe lung nodule and Dr. Galo order CT PET scan which was done on May 27, 2019 showed there is a 9 mm nodule in the central right upper lobe with SUV of 4.5 and has a high probability of malignancy biopsy was recommended. 2 semisolid nodules in the lateral right lower lobe are FDG negative and dominant nodule measured 0.8 x 1.4 cm, Dr. Galo referred her to Dr. Murrell chicken vaccinator who did evaluation and patient underwent follow-up CT scan of chest on December 14, 2019 which showed increasing lobulated solid mass in the central right upper lobe of the lung which measures 1.6 x 1.3 x 1.3 cm compared to 0.9 cm in May 2019 and right lower lobe nodule also continues to slowly increase in size measured 1.5 cm. And new sub-solid nodule measuring 7 mm in the central right upper lobe. Subsequently on December 16, [address] PET scan which confirmed central right upper lobe nodule measuring 1.4 cm with SUV of 15.7 compared to 0.9 cm with SUV of 4.5 seen on May 27, 2019 CT PET scan and semisolid nodule in the right lower lobe is unchanged in size and remained FDG negative. There is a new solid 8 mm nodule in the right upper lobe, too small to characterize with FDG imaging. Patient underwent bronchoscopy on January 03, 2020 and multiple samples were obtained including station 7 lymph node station 10 R lymph node, right upper lobe and all of them came back negative for malignancy, Patient underwent follow-up CT scan of chest on March 18, 2020 which showed stable right suprahilar suspected neoplasm previously seen on CT PET scan 1.4 x 1.4 cm. Numerous new pulmonary opacities bilaterally subcentimeter in size suspicious for metastatic disease largest opacities measuring 5 to 6 mm. Stable prominent 11 mm anterior mediastinal lymph node. No progressed lymphadenopathy. No other significant interval changes. Stable 1.6 cm FDG negative semisolid opacity in the right lower lobe, Patient was seen by Dr. Murrell chicken vaccinator who referred her to [place] for lung biopsy And on May 09, 2020, patient underwent CT-guided right upper lobe lung biopsy and final pathology report came back invasive squamous cell carcinoma Staging CT PET scan done on June 08, 2020 showed right upper lobe pulmonary mass measured 2.1 cm in diameter with SUV of 11.8 up from 1.4 cm with SUV of 15.7 on prior study done on December 16, 2019. A semisolid/groundglass opacity in the lateral right lower lobe is now larger at 1 x 2 cm but remains FDG negative. And 8 mm right upper lobe nodule is unchanged and remained FDG negative. Other subcentimeter nodules are unchanged from prior study. Came for follow-up, denies any specific complaints, no fever chills, no nausea or vomiting, no diarrhea constipation no hemoptysis or hematemesis but she is anxious about her CT PET scan report and findings, she is here to discuss further planning. Radiotherapy to Date: Course: RT Lung SBRT, Treatment Site: SBRT RUL 5FX, Ref. ID: [id number], Energy: 6X, Dose/Fx (cGy): 1,000, #Fx: 5 / 5, Dose Correction (cGy): 0, Total Dose Delivered (cGy): 5,000, Start Date: 07/23/2020, End Date: 08/02/2020, Elapsed Days: 10 Course: SABR - RLL 2021, Treatment Site: SABR ??? RLL, Ref. ID: [id number], Energy: 6X, Dose/Fx (cGy): 1,800, #Fx: 3 / 3, Dose Correction (cGy): 0, Total Dose Delivered (cGy): 5,400, Start Date: 06/08/2022, End Date: 06/12/2022, Elapsed Days: 4 Current History: See above Current Medications: Albuterol Sulfate, aleve, amLODIPine Besylate, apixaban, aspirin, bystolic, gabapentin, januvia, lidoderm, metFORMIN HCl, sertraline HCl, trelegy Ellipta, voltaren. Allergies: Zostavax. Current Complaints / Review of Systems: . Abdominal pain, hemorrhoid flared Vital Signs: Performed on 08/19/2023 9:17 AM BMI - 26.826 kg/m2 (high), Height - 66 in, Weight - 166.2 lbs, Temperature - 97 f, Pulse - 72 /min, Respiration - 18 /min, O2 Sat - 89 % (low), Pain - 5, Fatigue - 0 and BP - 118/ 65 mm(hg). Physical Exam: General: Alert and oriented x 3. No acute distress. HEENT: Normocephalic, atraumatic. Extraocular Movements Intact: Pupils Equal, Round, Reactive to Light. . LUNGS: Respiratory rate is regular nonlabored. HEART: Regular rate and rhythm, MUSCULOSKELETAL: She does have pain through the mid thoracic area. ABDOMEN: Soft, nontender, nondistended EXTREMITIES: No peripheral edema is identified. Limited motor and sensory examination are grossly intact and symmetric bilaterally. NEUROLOGIC: Alert and orient x 3. Gait speech within normal limits Psychological: Affect is appropriate for current situation. Performance Status: KPS 90 Lab: None pending. Pathology: Primary, c34.30 - malignant neoplasm of lower lobe, unspecified bronchus or lung, Diagnosed 05/19/2022 (active) stage ia2, t1b, n0, m0, Primary, c34.11 - malignant neoplasm of upper lobe, right bronchus or lung, Diagnosed 05/09/2020 (active) stage ia3, t1c, n0, m0, Primary, r91.1 - solitary pulmonary nodule, Diagnosed 01/25/2020 (active) and Primary, d05.11 - intraductal carcinoma in situ of right breast, Diagnosed 08/05/2016 (active) . Imaging: See HPI Impression: 78-year-old lady with a past history of breast and lung cancer now with liver metastasis and a fullness in the head of the pancreas. Plan: I reviewed the results of her CT scan. We talked about her past history with her 2 previous cancer diagnoses. I reviewed with her at this time that it is possible that this could be a lung cancer that is spread to her liver. I have recommended at this point we will get a PET scan for better delineation of the full extent of disease. I also talked with her about the possibility of a need for an additional biopsy. The previous biopsy was in [place]. I did not discuss with her the possibility that this could be a third malignancy. At this point we will get her scheduled for PET scan and go ahead and schedule a medical oncology consultation. She will return after her PET go over those results and we will proceed from there. Signed by: 08/19/2023 9:43:43 AM <<Signature on File>> Time spent with patient:30 CPT Code: CPT Code:
[2023-08-26 10:29] LABS: Basophils % 0.4 %; Eosinophils # 0.1 10^3/uL (0.0-0.8); Eosinophils % 2.1 %; Hematocrit 38.7 % (36-47); Lymphocytes # 0.6 10^3/uL (0.8-4.8); Mean Corpuscular Hemoglobin 29.6 pg (27-33); Mean Corpuscular Volume 92.4 fl (85-98); Mean Platelet Volume 11.3 fL (7.4-10.4); Monocytes # 0.5 10^3/uL (0.2-0.9); Neutrophils # 4.15 10^3/uL (1.8-7.7); Neutrophils % 77.3 %; Nucleated Red Blood Cells % 0 %; Platelet Count 163 10^3/cmm (157-399); Red Blood Count 4.19 10^6/uL (3.85-5.65); Red Cell Distribution Width 13.7 % (12.1-15.1); White Blood Count 5.36 10^3/uL (3.29-11.43)
[2023-08-26 10:53] LABS: Carcinoembryonic Antigen 13.8 ng/mL (0.0-4.7)
[2023-08-26 10:56] LABS: Alanine Aminotransferase 39 U/L (0-33); Albumin Level 3.8 g/dL (3.5-5.2); Alkaline Phosphatase 140 U/L (35-105); Anion Gap 13.8 (5-19); Aspartate Amino Transferase 48 U/L (0-32); Blood Urea Nitrogen 8 mg/dL (8-23); CA 15-3 39.8 U/mL (0-25); Carbon Dioxide 27 mmol/L (22-29); Chloride 101 mmol/L (98-107); Creatinine Clr Calc Pharmacy 58.9769; Glucose 214 mg/dL (65-115); Osmolality Calculated 291 mOsm/kg (285-295); Potassium 3.8 mmol/L (3.5-5.1); Sodium 138 mmol/L (136-145); Total Bilirubin 2.2 mg/dL (0.15-1.2); Total Protein 7.8 g/dL (6.6-8.7)
[2023-08-26 11:01] LABS: Hepatitis A Antibody IgM Non-Reactive (Nonreactive); Hepatitis B Core AB, Total Non-Reactive (Nonreactive); Hepatitis B Surface AB < 3.5 (11.5-1000); Hepatitis B Surface Antigen Non-Reactive (Nonreactive); Hepatitis C Virus Antibody Non-Reactive (Nonreactive)
[2023-08-26 11:16] LABS: Cancer Antigen 19 9 3589 U/mL (0-35)
[2023-08-26 11:49] LABS: Tumor Marker Alpha Fetoprotein 1.8 ng/mL (0-8.3)
== END 2023-09-02 23:59 | disposition home or self-care (01) ==
PROVIDERS: PCP Family Medicine; Visit Provider Internal Medicine
DX: Z53.9 Procedure and treatment not carried out, unspecified reason (principal); C50.919 Malignant neoplasm of unspecified site of unspecified female breast; C34.91 Malignant neoplasm of unspecified part of right bronchus or lung; I26.99 Other pulmonary embolism without acute cor pulmonale; Z11.59 Encounter for screening for other viral diseases
CPT/HCPCS: 36415; 80053; 82105; 82378; 85025; 86300; 86301; 86705; 86706; 86709; 86803; 87340; 99205; 99214

== ENCOUNTER 2023-08-27 07:52 | Outpatient (CLI) | payer MEDICARE, OTHER, SELFPAY ==
--- NOTE | 2023-08-27 08:00 | XR_ITS ---
WS: [id number] Examination: XR lumbar spine 2-3V* [id number] Reason for Exam: LOW BACK PAIN Date: August 27, 2023 Comparison: October 02, 2020 Findings: The bone density is diminished. The pedicles are intact. There is no anterior wedging or compression. There is no subluxation Diffuse degenerative disc disease is identified. This is dominant at L4-5 and L5-S1. There is been pr ogression at L4-5. Diffuse anterior lipping and facet sclerosis/hypertrophy is identified Impression: Diffuse degenerative changes are present. There is no compression or subluxation.
--- NOTE | 2023-08-27 08:00 | XR_ITS ---
WS: [id number] Examination: XR abdomen min 2V [id number] Reason for Exam: ACUTE CONSTIPATION Date: 08/27/2023 Comparison: None. Findings: No free air is identified. Air and stool are seen within the colon. Significant constipation is not appreciated. There is no abnormal small bowel distention. The psoas margins are well seen. Degenerative changes of the lumbar spine are present. Impression: There is no obstruction or free air.
== END 2023-08-27 07:53 | disposition home or self-care (01) ==
LOC: RAD 07:53
PROVIDERS: PCP Family Medicine; Visit Provider Family Medicine
DX: M54.50 Low back pain, unspecified (principal)
CPT/HCPCS: 72100; 74019

== ENCOUNTER 2023-09-01 11:27 | Emergency (ER) | payer MEDICARE, OTHER, SELFPAY ==
[2023-09-01 11:33] VITALS: BP 151/87; PULSE 72; TEMP 36.7; O2SAT 96; BMI 26.3
[2023-09-01 11:45] LABS: Basophils % 0.8 %; Eosinophils # 0.1 10^3/uL (0.0-0.8); Eosinophils % 1.4 %; Hematocrit 39.3 % (36-47); Lymphocytes # 0.5 10^3/uL (0.8-4.8); Lymphocytes % 9.9 %; Mean Corpuscular HGB Conc 31.6 g/dL (30-55); Mean Corpuscular Hemoglobin 29.5 pg (27-33); Mean Corpuscular Volume 93.6 fl (85-98); Mean Platelet Volume 10.9 fL (7.4-10.4); Monocytes # 0.5 10^3/uL (0.2-0.9); Monocytes % 9.3 %; Neutrophils # 3.77 10^3/uL (1.8-7.7); Nucleated Red Blood Cells % 0 %; Platelet Count 152 10^3/cmm (157-399); Red Cell Distribution Width 14.6 % (12.1-15.1); White Blood Count 4.84 10^3/uL (3.29-11.43)
--- NOTE | 2023-09-01 11:57 | CT_ITS ---
WS: [id number] CT ABDOMEN AND PELVIS WITH CONTRAST HISTORY: Abdominal pain, elevated liver enzymes., History of lung cancer. TECHNIQUE: Imaging performed of the abdomen and pelvis with IV contrast. Single phase imaging of the abdomen. Coronal and sagittal reformats are submitted. All CT scans at [facility] use at [address] one of these dose optimization techniques: automated exposure control; mA and/or kV adjustment per patient size (includes targeted exams where dose is matched to clinical indication); or iterative re construction. IV CONTRAST: Omnipaque 350; 100 mL IV. Oral contrast: No DLP: 691.23 mGy.cm COMPARISON: 07/22/2021, chest CT 08/13/2023 Lower thorax: Hazy subsolid opacification measuring 2.6 cm is reidentified at the RIGHT lung base. Th ere is a subcentimeter nodule at the RIGHT lung base. Heart is normal size. Small hiatal hernia. Liver/biliary system: Liver is normal size. There are numerous low-attenuation masses within the live r. The largest mass in the posterior superior RIGHT lobe measures 3.3 x 2.4 cm. There are additional smaller scattered hypodensities and also cysts. There is central bile duct dilatation. Small amount o f adjacent perihepatic fluid. Common bile duct is dilated to 9 mm. Gallbladder: Normal. No gallstones or wall thickening. No pericholecystic fluid. Pancreas: Interval change in appearance of the pancreas since the prior CT from 07/22/2021. There is a soft tissue mass centered at the head and neck of the pancreas measuring 4.4 x 3.5 cm. This mass is causing obstruction of the common bile duct and probable tumor is infiltrating into the common bile d uct due to the wall enhancement. Pancreatic duct is also markedly dilated distally with distal pancre atic atrophy. Spleen: Normal size spleen. No mass or infarct. Adrenal glands: Normal. Right kidney: Mild cortical thinning and atrophy. There are a few scattered too small to characterize hypodensities. No obstruction. Left kidney: Mild cortical thinning. No obstruction. Aorta: Mild atherosclerosis with no aneurysm. Partial encasement of the hepatic artery by the pancrea tic tumor. Lymphadenopathy: There are a few small central mesenteric lymph nodes. Additional small shotty retrop eritoneal lymph nodes at the level of the renal arteries. Free fluid: Development of a small amount of ascites. There is fluid around the liver and extending a long the paracolic gutters. Mild mesenteric edema. Small amount of free fluid in the pelvis. GI tract: Nondistended stomach. No small bowel obstruction. Normal appendix. Abdominal wall: There is some very mild stranding within the omentum and mesenteric fat. Suspect this is all edema and not omental carcinomatosis. Pelvis: Free fluid in the pelvis is small. Negative urinary bladder. Prior hysterectomy. Bones: No metastatic bone lesions are identified. IMPRESSION: 1. Pancreatic head and neck mass is new since 07/22/2021. There is a large mass in the pancreatic hea d measuring 4.4 x 3.5 cm highly suspicious for pancreatic adenocarcinoma. Distal pancreas is atrophie d and the duct is dilated. 2. Pancreatic mass extends into the common bile duct with obstruction. 3. Dilated intrahepatic and extrahepatic common bile duct. 4. New low-attenuation masses within the liver suspicious for metastatic disease. The largest is 3.3 x 2.4 cm. 5. New small amount of ascites. 6. No definite lymphadenopathy. There are small shoddy retroperitoneal and central mesenteric lymph nodes. 7. Stable hazy opacification at the RIGHT lung base measuring 2.6 cm. There is a new subcentimeter n odule at the RIGHT lung base which could be an early metastatic lesion. 8. Prior hysterectomy.
--- NOTE | 2023-09-01 11:58 | W.ED.ABDPA2 ---
HPI - Abdominal Pain General: Chief Complaint: Abdominal Pain Stated Complaint: abd pain, sent by dr Sim Time Seen by Provider: 09/01/23 11:50 Source: patient Mode of arrival: ambulatory Limitations: no limitations History of Present Illness: 78-year-old female with a history of lung cancer states over the last week she has been getting progressively weaker she is became jaundiced does have jaundice here she had some diffuse abdominal pain she had a chest CT last week that did show possible liver mets and a possible pancreatic mass she denies any fevers denies any worsening improving factors. Associated Symptoms: Reports nausea; Denies chills, diarrhea, dysuria and fever(s) Review of Systems Const: Denies: fever(s), chills, body aches or change in appetite ENMT: Denies: throat pain or dental pain Card: Denies: chest pain Resp: Denies: dyspnea GI: Reports: abdominal pain and nausea; Denies: diarrhea : Denies: dysuria Musc: Denies: neck pain or back pain Skin/Breast: Denies: rash Neuro: Denies: headache(s) PFSH ED PFSH: Medical History Lesion of pancreas Liver lesion Ductal carcinoma in situ of right breast COPD (chronic obstructive pulmonary disease) Hx of diabetes mellitus Hx of primary hypertension History of COPD Lung nodule Surgical History Hx of carpal tunnel repair Hx of hysterectomy Hx of bladder repair surgery Hx of eye surgery Hx of cataract extraction Social History Smoking and tobacco/nicotine status: current every day tobacco/nicotine user (1 ppd) cigarettes Packs smoked per day: 1 Years cigarettes smoked: 60 Second hand smoke exposure: Yes Alcohol intake: never Substance/Drug Use: never Lives independently: Yes Household members: spouse Marital status: Current occupational status: retired Do you think of yourself as: Straight/Heterosexual Current gender identity: Female Physical Exam Const: COMMON NORMALS: patient oriented x3 HENMT: COMMON NORMALS: normocephalic and atraumatic HEAD & SCALP: normocephalic and atraumatic Eye: COMMON NORMALS: Equal, round and reactive pupils present and EOMs intact bilaterally PUPIL: Yes Equal, round and reactive pupils present OTHER: scleral icterus Neck/C-Spine: COMMON NORMALS: full ROM and supple Chest: COMMONS NORMALS: normal inspection of the chest and normal palpation of entire chest wall Resp: COMMON NORMALS: normal respiratory effort, No retractions, No use of accessory muscles and clear to auscultation bilaterally AUSCULTATION: clear to auscultation bilaterally Cardio: COMMON NORMALS: regular rate, regular rhythm and No murmurs present (Cardio) RATE: regular rate RHYTHM: regular rhythm GI: COMMON NORMALS: Normal to inspection, nondistended, normoactive bowel sounds present, Soft to palpation, non-tender and no masses PALPATION: Yes Soft to palpation Extremity: COMMON NORMALS: normal to inspection and full ROM Neuro: COMMON NORMALS: patient oriented x3, moves all extremities and no focal motor deficits Psych: COMMON NORMALS: mental status grossly normal, Normal thought process present and cooperative THOUGHT PROCESS: Normal thought process present Skin: COMMON NORMALS: no rashes or lesions noted and no wounds GENERAL SKIN EXAM: no rashes or lesions noted and jaundice Course Vital Signs: Vital signs: Vital Signs Temperature 98.1 F 09/01/23 11:33 Pulse Rate 67 09/01/23 15:26 Respiratory Rate 18 09/01/23 15:26 Blood Pressure 135/80 09/01/23 15:26 Pulse Oximetry 96 09/01/23 15:26 Oxygen Delivery Me thod Room Air 09/01/23 15:26 Oxygen Flow Rate 2 09/01/23 14:35 MDM - Abdominal Pain Medical Decision Making Presents for abdominal pain along with jaundice CT does show a pancreatic likely adenocarcinoma causing obstruction of the common bile duct is likely causing her elevated bilirubin [facility] and [facility] capability she likely needs a stent. Patient's been stable here. Lab Data I reviewed the patient's lab results. 09/01/23 11:38 09/01/23 11:38 Labs/Radiology: Laboratory Results WBC 4.84 10^3/uL (3.29-11.43) 09/01/23 11:38 RBC 4.20 10^6/uL (3.85-5.65) 09/01/23 11:38 Hgb 12.40 g/dL (11.27-16.99) 09/01/23 11:38 Hct 39.3 % (36-47) 09/01/23 11:38 MCV 93.6 fl (85-98) 09/01/23 11:38 MCH 29.5 pg (27-33) 09/01/23 11:38 MCHC 31.6 g/dL (30-55) 09/01/23 11:38 RDW 14.6 % (12.1-15.1) 09/01/23 11:38 Plt Count 152 10^3/cmm (157-399) L 09/01/23 11:38 MPV 10.9 fL (7.4-10.4) H 09/01/23 11:38 Neut % (Auto) 78.0 % 09/01/23 11:38 Lymph % (Auto) 9.9 % 09/01/23 11:38 Barren % (Auto) 9.3 % 09/01/23 11:38 Eos % (Auto) 1.4 % 09/01/23 11:38 Baso % (Auto) 0.8 % 09/01/23 11:38 Neut # (Auto) 3.77 10^3/uL (1.8-7.7) 09/01/23 11:38 Lymph # (Auto) 0.5 10^3/uL (0.8-4.8) L 09/01/23 11:38 Barren # (Auto) 0.5 10^3/uL (0.2-0.9) 09/01/23 11:38 Eos # (Auto) 0.1 10^3/uL (0.0-0.8) 09/01/23 11:38 Baso # (Auto) 0.0 10^3/uL (0.0-0.1) 09/01/23 11:38 Nucleated RBC % (auto) 0 % 09/01/23 11:38 Nucleated RBCs # 0.0 /100WBC 09/01/23 11:38 Sodium 137 mmol/L (136-145) 09/01/23 11:38 Potassium 3.8 mmol/L (3.5-5.1) 09/01/23 11:38 Chloride 97 mmol/L (98-107) L 09/01/23 11:38 Carbon Dioxide 27 mmol/L (22-29) 09/01/23 11:38 Anion Gap 16.8 (5-19) 09/01/23 11:38 BUN 8 mg/dL (8-23) 09/01/23 11:38 Creatinine 0.6 mg/dL (0.5-0.9) 09/01/23 11:38 GFR Calculation Not Reportable 09/01/23 11:38 Glucose 290 mg/dL (65-115) H 09/01/23 11:38 Calculated Osmolality 293 mOsm/kg (285-295) 09/01/23 11:38 Calcium 9.2 mg/dL (8.5-10.5) 09/01/23 11:38 Total Bilirubin 5.5 mg/dL (0.15-1.2) H 09/01/23 11:38 AST 80 U/L (0-32) H 09/01/23 11:38 ALT 73 U/L (0-33) H 09/01/23 11:38 Alkaline Phosphatase 203 U/L (35-105) H 09/01/23 11:38 Total Protein 7.8 g/dL (6.6-8.7) 09/01/23 11:38 Albumin 3.7 g/dL (3.5-5.2) 09/01/23 11:38 Globulin 4.1 g/dL (1.3-4.6) 09/01/23 11:38 Lipase 24 U/L (13-60) 09/01/23 11:38 Urine Color Yellow (Yellow) 09/01/23 13:19 Urine Appearance Sl hazy (CLEAR) A 09/01/23 13:19 Urine pH 5 (5-7) 09/01/23 13:19 Ur Specific [place] 1.005 (1.005-1.030) 09/01/23 13:19 Urine Protein 1+ (Negative) H 09/01/23 13:19 Urine Glucose (UA) Norm (Normal) 09/01/23 13:19 Urine Ketones Negative (Negative) 09/01/23 13:19 Urine Blood Neg (Negative) 09/01/23 13:19 Urine Nitrate Positive (Negative) H 09/01/23 13:19 Urine Bilirubin 1+ (Negative) H 09/01/23 13:19 Urine Urobilinogen 1 mg/dL (Negative) H 09/01/23 13:19 Ur Leukocyte Esterase Negative (Negative) 09/01/23 13:19 Urine RBC 0-4 /hpf (0-2) H 09/01/23 13:19 Urine WBC 0-4 /hpf (0-5) H 09/01/23 13:19 Ur Squamous Epith Cells 0-4 /hpf (0-5) H 09/01/23 13:19 Amorphous Sediment Not Reportable 09/01/23 13:19 Urine Bacteria 1+ /hpf (NONE) H 09/01/23 13:19 All radiology interpretation(s) finalized by discharge Discharge Plan Discharge Patient Disposition: Xfer Short-Term Hosp Clinical Impression: Pancreatic lesion, Abdominal pain, Elevated bilirubin Condition: Stable Prescriptions: No Action lidocaine 5 % adhesive patch,medicated 1 patch TOPICAL DAILY PRN (Reason: Pain) Rx Instructions: leave on most painful area for up to 12 hrs then off for 12 hours albuterol sulfate [ProAir HFA] 90 mcg/actuation HFA aerosol inhaler 2 puff INHALATION Q6H PRN (Reason: Shortness Of Breath) (DME) Diabetic Shoes with 3 inserts See Rx Instructions .Route .MEDSUPPLY Qty: 1 0RF Rx Instructions: As directed to the shoe balaji sertraline 50 mg tablet 50 mg PO DAILY@18 nebivolol [Bystolic] 5 mg tablet 5 mg PO DAILY@18 amlodipine 5 mg Tablet 5 mg PO DAILY@18 Januvia 100 mg Tablet 100 mg PO QAM gabapentin 300 mg Capsule 300 mg PO BEDTIME@21 omeprazole 20 mg capsule,delayed release(DR/EC) 20 mg PO DAILY PRN (Reason: Heartburn) metformin 500 mg tablet extended release 24 hr 1,000 mg PO QPM Trelegy Ellipta 100-62.5-25 mcg Blister With Device 1 inh INHALATION DAILY@09 Tylenol Ex Str Rapid Release 500 mg Tablet 500 mg PO DAILY@1030 Vitamin D3 25 mcg (1,000 unit) Capsule 25 mcg PO QAM diclofenac sodium 1 % gel 2 g TOPICAL QID PRN (Reason: Pain) aspirin 81 mg tablet,delayed release (DR/EC) 81 mg PO QAM levalbuterol HCl [Xopenex] 1.25 mg/3 mL solution for nebulization 1.25 mg inhalation Q4H PRN (Reason: shortness of breath or wheezing) Referrals: Darrius Sim MD [Primary Care Provider] - Patient Instructions: Abdominal Pain (ED) Coding Level of Care Code ED Manager Of Customer Billing for Hubert Victoria
[2023-09-01 12:05] VITALS: RESP 15; O2SAT 99
[2023-09-01] MEDS: morphine 4 mg/mL SDV 1 mL IVP (12:05)
[2023-09-01] MEDS: ondansetron 2 mg/ML SDV 2 mL 4 MG IVP (12:05)
[2023-09-01 12:13] LABS: Alanine Aminotransferase 73 U/L (0-33); Albumin Level 3.7 g/dL (3.5-5.2); Alkaline Phosphatase 203 U/L (35-105); Anion Gap 16.8 (5-19); Aspartate Amino Transferase 80 U/L (0-32); Blood Urea Nitrogen 8 mg/dL (8-23); Calcium 9.2 mg/dL (8.5-10.5); Carbon Dioxide 27 mmol/L (22-29); Chloride 97 mmol/L (98-107); Creatinine Clr Calc Pharmacy 58.6503; Globulin 4.1 g/dL (1.3-4.6); Glucose 290 mg/dL (65-115); Lipase 24 U/L (13-60); Osmolality Calculated 293 mOsm/kg (285-295); Potassium 3.8 mmol/L (3.5-5.1); Sodium 137 mmol/L (136-145); Total Bilirubin 5.5 mg/dL (0.15-1.2); Total Protein 7.8 g/dL (6.6-8.7)
--- NOTE | 2023-09-01 12:16 | PC.PHAR ---
pt states she takes care of her own medications-pt states she stop taking her ezetimibe 10mg daily (filled 06/08/23 90d/s) and glipizide er 2.5mg daily (filled 07/28/23 30d/s) stop taking a month ago-pt states 2 months ago she stop taking jardiance 25mg po daily ext shows last filled 06/08/23 90d/s-
[2023-09-01] MEDS: iohexol 350 mg/mL 500 mL Btl (per mL) IV (12:44)
[2023-09-01 14:23] LABS: Glucose Urine UA Norm (Normal); Protein Urine 1+ (Negative); Specific Gravity, Urine 1.005 (1.005-1.030); Urine Appearance SL Hazy (CLEAR); Urine Color Yellow (Yellow); pH Urine 5 (5-7)
[2023-09-01 14:24] LABS: Add Urine Culture? No; Add Urine Microscopic? YES; Bacteria Urine 1+ /hpf; Bilirubin Urine 1+ (Negative); Blood Urine Neg (Negative); Ketones Urine Negative (Negative); Leukocyte Esterase Urine Negative (Negative); Nitrate Urine Positive (Negative); RBC Urine 0-4 /hpf (0-2); Squamous Epithelial Cell Urine 0-4 /hpf (0-5); Urobilinogen Urine 1 mg/dL (Negative); WBC Urine 0-4 /hpf (0-5)
[2023-09-01] MEDS: cefTRIAXone 1,000 MG in sodium chloride 0.9% (plus) 50 ML 100 MG IV (14:32)
[2023-09-01 14:35] VITALS: BP 135/80; PULSE 70; RESP 16; O2SAT 98
[2023-09-01 15:26] VITALS: BP 135/80; PULSE 67; RESP 18; O2SAT 96
[2023-09-01] MEDS: piperacillin-tazobactam 3.375 GM in sodium chloride 0.9% (plus) 50 ML IV (15:26)
[2023-09-01 18:27] VITALS: BP 142/73; PULSE 67; RESP 16; O2SAT 96
--- NOTE | 2023-09-01 18:27 | PC.NURSE ---
pending room number at [facility], notified pt of this
[2023-09-01 19:24] VITALS: BP 142/73; PULSE 73; RESP 16; O2SAT 94
== END 2023-09-01 20:41 | disposition short-term general hospital (02) ==
PROVIDERS: Emergency Provider Emergency Medicine; PCP Family Medicine
DX: K86.9 Disease of pancreas, unspecified (principal); R10.9 Unspecified abdominal pain; R17 Unspecified jaundice; Z79.82 Long term (current) use of aspirin; J44.9 Chronic obstructive pulmonary disease, unspecified; E11.9 Type 2 diabetes mellitus without complications; I10 Essential (primary) hypertension; F17.210 Nicotine dependence, cigarettes, uncomplicated
CPT/HCPCS: 36415; 74177; 80053; 81001; 83690; 85025; 96365; 96367; 96375; 99285; J0696; J2270; J2405; J2543; Q9967

== ENCOUNTER → 2023-09-14 13:03 | Outpatient (BNVA) | payer MEDICARE, OTHER, SELFPAY | PROVIDERS: PCP Family Medicine; Referring Provider Internal Medicine; Visit Provider Surgery | DX: Z95.828 Presence of other vascular implants and grafts (principal) | CPT/HCPCS: 99204 ==

== ENCOUNTER 2023-09-20 10:13 | Day surgery (SDC) | payer MEDICARE, OTHER, SELFPAY ==
[2023-09-20] VITALS (9 sets, daily range): BP systolic 135–152; BP diastolic 79–86; PULSE 79–85; RESP 16–18; TEMP 36.2–36.5; O2SAT 91–96; BMI 26.1
[2023-09-20 11:05] LABS: Glucose Point of Care 150 mg/dL (70-110)
[2023-09-20] MEDS: sodium chloride 0.9% 1,000 ML 30 ML IV (11:06)
--- NOTE | 2023-09-20 11:23 | SUR.PREOP ---
due to low O2 sats and mild dyspnea, pt placed on O2 via nasal cannular.
--- NOTE | 2023-09-20 11:51 | ANES.PREANE2 ---
Pre-Anesthetic Assessment Height/Weight: Height 1.68 m Weight 73.482 kg Temp Pulse Resp BP Pulse Ox O2 Del Method O2 Flow Rate 97.7 F 85 17 135/79 96 Nasal Cannula 2 09/20/23 10:51 09/20/23 10:51 09/20/23 10:51 09/20/23 10:51 09/20/23 10:51 09/20/23 10:52 09/20/23 10:52 Operation Date: 09/20/23 12:00 Proposed Procedures p Portacath Placement(Not Applicable) - Ge Alamo MD Familial anesthetic complications: None Was Beta Randy taken within 24 hours: N/A Was Clonidine taken within 24 hours: N/A Last intake: Intake Last Liquid Date 09/19/23 Last Liquid Time 21:00 Last Solid Date 09/19/23 Last Solid Time 16:00 Social Tobacco (encouraged smoking cessation) and No alcohol Exam alert, oriented x 3, clear to auscultation bilaterally and regular rate & rhythm Airway Mallampati: Class III Dentition: false Pulmonary Chronic Obstructive Pulmonary Disease (2 L NC) and Sleep Apnea R lung SCC, hx PE CV/HEM Hypertension Hepatic Liver lesion, probable recent paracentesis, abdominal swelling GI Gastroesophageal Reflux Disease pancreatic mets Anesthetic Plan ASA status: 4 Anesthesia: General Other: RSI for ascites, patient states she had stomach drained 2 weeks ago Risk of > 500 ml blood loss (7ml/kg in children): No Medications/Allergies Home Medications Medication Instructions Recorded Confirmed Last Taken Type amlodipine 5 mg tablet 5 mg PO DAILY@12/20/19 09/20/23 09/19/23 History sitagliptin phosphate 100 mg 100 mg PO QAM 12/20/19 09/20/23 09/19/23 History tablet (Januvia) gabapentin 300 mg capsule 300 mg PO BEDTIME@01/02/20 09/17/23 09/17/23 History nebivolol 5 mg tablet (Bystolic) 5 mg PO DAILY@01/29/20 09/20/23 09/19/23 History sertraline 50 mg tablet 50 mg PO DAILY@01/29/20 09/20/23 09/19/23 History lidocaine 5 % topical patch 1 patch topical DAILY PRN Pain 02/08/20 09/20/23 09/16/23 History levalbuterol HCl 1.25 mg/3 mL 1.25 mg inhalation Q4H PRN 05/15/22 09/17/23 Unknown History solution for nebulization (Xopenex) shortness of breath or wheezing Diabetic Shoes with 3 inserts #1 ea 08/02/23 09/14/23 Unknown Rx acetaminophen 500 mg tablet 500 mg PO DAILY@1030 09/01/23 09/17/23 08/31/23 History aspirin 81 mg tablet,delayed 81 mg PO QAM 09/01/23 09/17/23 09/01/23 History release diclofenac sodium 1 % topical gel 2 g topical QID PRN Pain 09/01/23 09/20/23 09/20/23 History fluticasone fur. 100 mcg-umeclid 1 inh inhalation DAILY@09 09/01/23 09/20/23 09/20/23 History 62.5 mcg-vilant 25 mcg inhalat.powder (Trelegy Ellipta) metformin 500 mg tablet,extended 1,000 mg PO QPM 09/01/23 09/20/23 09/19/23 History release 24 hr omeprazole 20 mg capsule,delayed 20 mg PO DAILY PRN Heartburn 09/01/23 09/20/23 Unknown History release hydrocodone 5 mg-acetaminophen 325 1 tab PO Q8H PRN pain 30 days #30 09/13/23 09/20/23 09/19/23 Rx mg tablet tabs Allergies Allergy/AdvReac Type Severity Reaction Status Date / Time No Known Allergies Allergy Verified 09/17/23 10:21 Current Medications Generic Name Dose Route Start Last Admin Trade Name Freq PRN Reason Stop Dose Admin Sodium Chloride 1,000 mls @ 30 mls/hr 09/20/23 10:45 09/20/23 11:06 Sodium Chloride 0.9% IV 09/21/23 10:44 30 mls/hr .Q24H KELY Administration PFSH Anesthesia Medical History Adenocarcinoma of pancreas, stage 4 Lesion of pancreas Liver lesion Ductal carcinoma in situ of right breast COPD (chronic obstructive pulmonary disease) Hx of diabetes mellitus Hx of primary hypertension History of COPD Lung nodule Surgical History (Updated 09/14/23 @ 13:19 by SATHISH Yarbrough) Hx of carpal tunnel repair Hx of hysterectomy Hx of bladder repair surgery Hx of eye surgery Hx of cataract extraction Social History Smoking and tobacco/nicotine status: current every day tobacco/nicotine user (1 ppd) cigarettes Packs smoked per day: 1 Years cigarettes smoked: 60 Second hand smoke exposure: Yes Alcohol intake: never Substance/Drug Use: never Lives independently: Yes Household members: spouse Marital status: Current occupational status: retired Do you think of yourself as: Straight/Heterosexual Current gender identity: Female Data Anesthesia Cardiac Studies: No Data to Display
[2023-09-20] MEDS: fentaNYL 50 mcg/mL INJ 2mL IVP (12:06)
--- NOTE | 2023-09-20 12:25 | W.PM.OPSUD ---
Surgery/Procedure H&P Update DATE OF PROCEDURE: September 20, 2023 DATE H&P PERFORMED: 09/14/23 H&P UPDATE INFORMATION: I have reviewed H&P completed within last 30 days, I have examined patient prior to procedure, No changes to prior documentation and H&P is in [facility] EMR on date indicated PLANNED PROCEDURE: Operation Date: 09/20/23 12:00 Proposed Procedures p Portacath Placement(Not Applicable) - Ge Alamo MD
[2023-09-20] MEDS: ceFAZolin 2,000 MG in sodium chloride 0.9% (plus) 50 ML 100 MG IV (13:47)
[2023-09-20] MEDS: heparin, porcine 1,000 unit/mL INJ 10 mL 10000 UNIT IRRIGATION (14:06)
[2023-09-20] MEDS: lidocaine-epi 2% PF 1:200,000 20 mL SDV XX (14:06)
--- NOTE | 2023-09-20 14:36 | P.OP_ITS ---
Operative Report Date of procedure: September 20, 2023 Pre-op diagnosis: Pancreatic cancer Post-op diagnosis: Same Post-op findings: Normal vascular anatomy Procedure done: Insertion of right IJ Port-A-Cath Implants: Bard Port-A-Cath Surgeon: Ge Alamo MD Environmental Marketer: MARIA GUADALUPE OR STaff Estimated blood loss: 10 Complications: none Brief History: This is a 78-year-old female with history of pancreatic cancer who is referred to my clinic for evaluation for Port-A-Cath placement. After a discussion of all risk benefits as documented in my preop note we decided to proceed. Procedure: Patient was brought into the OR, he was placed in a supine position, mother anesthesia sedation was given. Timeout was conducted after the skin was prepped and draped in the usual sterile fashion. I then proceeded to identify the right IJ vein with ultrasound, I infiltrated local anesthesia on top of the vein. I then proceeded to cannulate the vein under direct ultrasound guidance using an 18-gauge needle, the needle tip was seen entering the vein and immediate return of blood was noted. A wire was advanced through the needle and the needle was removed. The position of the wire was verified with ultrasound and fluoroscopy. The wire was then fixed to the drapes. I then placed my attention to the chest, local anesthesia was infiltrated in the previously marked area on the chest and then a tract connecting the chest to the wire insertion site in the neck. I then proceeded to make a 3.5 cm incision in the right upper chest, the incision was deepened to subcutaneous tissue with electrocautery and electrocautery was used to create the subcutaneous pocket to house the Port-A-Cath. I then proceeded to use a hemostat to create a tunnel from the chest wound to the neck. I then proceeded to make a 0.5 cm incision at the level of the wire insertion site in the neck. Hemostasis was verified. I then placed the Port-A-Cath in the pocket and tunneled the catheter using the provided tunneler. The catheter was cut to appropriate length under fluoroscopy guidance and then flushed. I then proceeded to insert an introducer with a peel-off sheath over the wire under direct fluoroscopic guidance. I then remove the wire and the introducer leaving the peel-off sheath in place. The catheter was then advanced through the peel-off sheath and the peel-off sheath was removed leaving the catheter in place. Fluoroscopy showed evidence of Adequate catheter position. I then proceeded to access the port; the port was retrieving blood and flushing fine, I then hep-locked the catheter. Hemostasis was verified. The wound was closed in layers using #3-0 Vicryl for the subcutaneous tissue and #4 Monocryl for the skin. Dermabond was applied. A compressive dressing was applied on the neck to prevent hematoma formation. At the end of the procedure all counts were correct. The patient tolerated well the procedure and was transferred to the PACU in stable condition.
[2023-09-20] MEDS: oxyCODONE 5 mg IR Tab/Cap PO (15:42)
--- NOTE | 2023-09-20 15:49 | SC_ITS ---
WS: [id number] C-ARM RADIOGRAPHS CHEST; 2 IMAGES HISTORY: OR PICS COMPARISON: None available. Intraoperative imaging during Mediport placement. The tip of the Mediport near the aortocaval junctio n. IMPRESSION: Intraoperative imaging during Mediport placement.
--- NOTE | 2023-09-20 15:55 | ANE.PACU2 ---
Inpatient post-anesthesia follow up: Airway intact: Yes Vital signs: Temperature 97.2 F Pulse Rate 79 Respiratory Rate 18 Blood Pressure 136/84 Pulse Oximetry 91 Oxygen Delivery Me thod Nasal Cannula Oxygen Flow Rate 2 Fraction of Inspir ed Oxygen Hydration adequate: Yes Nausea and vomiting: No Pain level: 1 Mental status: Baseline
== END 2023-09-20 15:55 | disposition home or self-care (01) ==
PROVIDERS: PCP Family Medicine; Visit Provider Surgery
PROC: (CPT 36561; principal; 2023-09-20 11:50)
DX: C25.9 Malignant neoplasm of pancreas, unspecified (principal); J44.9 Chronic obstructive pulmonary disease, unspecified; Z99.81 Dependence on supplemental oxygen; G47.30 Sleep apnea, unspecified; I10 Essential (primary) hypertension; K21.9 Gastro-esophageal reflux disease without esophagitis; Z79.82 Long term (current) use of aspirin; F17.210 Nicotine dependence, cigarettes, uncomplicated
CPT/HCPCS: 36561; 36416; 77001; 82962; C1788; J0690; J1644; J2704; J3010; J7030

== ENCOUNTER 2023-09-21 07:44 | Outpatient (CLI) | payer MEDICARE, OTHER, SELFPAY ==
--- NOTE | 2023-09-21 08:00 | CT_ITS ---
WS: [id number] CT CHEST AND ABDOMEN TECHNIQUE: Contrast-enhanced CT of the chest and abdomen with coronal and sagittal reformatted images . CLINICAL INFORMATION: adenocarcinoma of pancreas COMPARISON: 09/01/2023 DLP: [id number] scans at [facility] use at least one of these dose optimization techniques: automated e xposure control; mA and/or kV adjustment per patient size (includes targeted exams where dose is matc hed to clinical indication); or iterative reconstruction. CT CHEST: Stable hazy 2.6 cm opacity in the RIGHT lower lobe. Chronic emphysematous changes. Moderate to advanc ed chronic emphysematous changes. Spiculated opacity RIGHT upper lobe extending to the RIGHT hilum wi th bronchiectasis is unchanged. Stable 6 mm nodule LEFT lower lobe medially. Aortic calcification. . Filling defects in the bilateral segmental and subsegmental pulmonary arteries compatible with pulmon iron embolus. No evidence of RIGHT heart strain. Few prominent anterior mediastinal lymph nodes unchan ged compared to previous. Enlarged main pulmonary artery is unchanged compared to previous. Numerous new small subcentimeter nodules within both lungs some of which may be inflammatory but susp icious for metastatic disease. Few new hazy subpleural nodules in the lung bases. Hypertrophic change s thoracic spine with ankylosis. CT ABDOMEN: Interval placement of common bile duct stent is new from previous. Numerous metastatic lesions within the RIGHT hepatic lobe the largest measuring 3.8 x 2.8 cm slightly progressed compared to previous. Slightly progressed smaller metastatic lesions in the RIGHT hepatic lobe. Additional similar-appearin g metastatic lesions in the caudate and LEFT hepatic lobe. Intrahepatic biliary ductal dilatation wes ears stable. Interval placement of common bile duct stent. Common bile duct stent is air-filled and a ppears grossly patent. Stable appearing heterogeneous pancreatic head mass with pancreatic ductal dil atation. Small amount of perihepatic and perisplenic ascites has progressed. Adrenal glands are normal. Bilate ral renal cortical scarring. No hydronephrosis. Normal caliber abdominal aorta. Aortic calcification. Similar-appearing shotty periaortic and aortocaval lymph nodes. Small amount of scattered fluid in t he mesentery. IMPRESSION: 1. Interval placement of common bile duct stent which appears patent. 2. New bilateral diffuse extensive pulmonary emboli in the segmental and subsegmental pulmonary iam mariela bilaterally. No evidence of RIGHT heart strain. Enlarged main pulmonary arteries are unchanged c ompared to previous. 3. New small subcentimeter nodules in both lungs. Findings suspicious for metastatic disease. 4. Stable hazy 2.7 cm opacity RIGHT lower lobe. 5. Slightly progressed metastatic lesions in particular in the RIGHT hepatic lobe described above. 6. Lobulated heterogeneously enhancing pancreatic head mass with ductal dilatation appears stable. 7. Stable shotty periaortic and aortocaval lymph nodes. 8. Small amount of perihepatic and perisplenic ascites with scattered fluid in the abdomen has sligh tly progressed compared to previous. Discussed with Dr. Hurtado at 09/21/2023 10:29 AM.
[2023-09-21] MEDS: iohexol 350 mg/mL 500 mL Btl (per mL) PO (08:40)
[2023-09-21] MEDS: iohexol 350 mg/mL 500 mL Btl (per mL) IV (08:46)
== END 2023-09-21 07:45 | disposition home or self-care (01) ==
LOC: RAD 07:44
PROVIDERS: PCP Family Medicine; Visit Provider Internal Medicine
DX: C25.9 Malignant neoplasm of pancreas, unspecified (principal); I26.99 Other pulmonary embolism without acute cor pulmonale; C34.91 Malignant neoplasm of unspecified part of right bronchus or lung; C78.7 Secondary malignant neoplasm of liver and intrahepatic bile duct; K76.9 Liver disease, unspecified; R91.8 Other nonspecific abnormal finding of lung field; R18.8 Other ascites
CPT/HCPCS: 71260; 74160; Q9967

== ENCOUNTER 2023-09-30 14:00 | Oncology outpatient (recurring) (ONCR) | payer MEDICARE, OTHER, SELFPAY ==
[2023-09-28 08:12] LABS: Basophils % 0.6 %; Eosinophils # 0.2 10^3/uL (0.0-0.8); Eosinophils % 2.4 %; Hematocrit 34.5 % (36-47); Lymphocytes # 0.5 10^3/uL (0.8-4.8); Lymphocytes % 6.6 %; Mean Corpuscular HGB Conc 32.5 g/dL (30-55); Mean Corpuscular Hemoglobin 29.9 pg (27-33); Mean Corpuscular Volume 92.2 fl (85-98); Mean Platelet Volume 10.7 fL (7.4-10.4); Monocytes # 0.8 10^3/uL (0.2-0.9); Monocytes % 11.5 %; Neutrophils # 5.44 10^3/uL (1.8-7.7); Neutrophils % 78.5 %; Nucleated Red Blood Cells % 0 %; Platelet Count 169 10^3/cmm (157-399); Red Blood Count 3.74 10^6/uL (3.85-5.65); Red Cell Distribution Width 14.8 % (12.1-15.1); White Blood Count 6.94 10^3/uL (3.29-11.43)
[2023-09-28 08:24] LABS: Alanine Aminotransferase 13 U/L (0-33); Albumin Level 3.1 g/dL (3.5-5.2); Alkaline Phosphatase 235 U/L (35-105); Anion Gap 15.2 (5-19); Aspartate Amino Transferase 32 U/L (0-32); Blood Urea Nitrogen 13 mg/dL (8-23); Calcium 8.8 mg/dL (8.5-10.5); Carbon Dioxide 27 mmol/L (22-29); Chloride 92 mmol/L (98-107); Creatinine Clr Calc Pharmacy 59.9566; Globulin 3.7 g/dL (1.3-4.6); Glucose 243 mg/dL (65-115); Osmolality Calculated 278 mOsm/kg (285-295); Potassium 4.2 mmol/L (3.5-5.1); Sodium 130 mmol/L (136-145); Total Bilirubin 1.3 mg/dL (0.15-1.2); Total Protein 6.8 g/dL (6.6-8.7)
[2023-09-28 09:07] LABS: Cancer Antigen 19 9 7446 U/mL (0-35)
[2023-09-28] MEDS: sodium chloride 0.9% 500 ML 75 ML IV (10:34)
[2023-09-28] MEDS: palonosetron 0.25 mg/5 mL SDV IVP (10:36)
[2023-09-28] MEDS: dextrose 5% 250 ML 75 ML IV (11:42)
[2023-09-28] MEDS: oxaliplatin 100 MG, oxaliplatin 60 MG in dextrose 5% 250 ML 141 MG IV (11:44)
[2023-09-28] MEDS: atropine 1 mg/mL SDV 1 mL 0.400000000000000022 MG IV (13:52)
[2023-09-28] MEDS: IRINOTECAN IV (14:04)
[2023-09-28] MEDS: DEXTROSE 5% IV ×2 (14:04)
[2023-09-28] MEDS: LEUCOVORIN IV (14:04)
[2023-09-28 15:26] VITALS: BP 133/82; PULSE 82; O2SAT 95
[2023-09-28] MEDS: FLUOROURACIL IV (15:28)
[2023-09-28] MEDS: ELASTOMERIC PUMP PUMP IV (15:28)
[2023-09-28] MEDS: SODIUM CHLORIDE IV (15:28)
[2023-09-30] MEDS: sodium chloride 0.9% 500 ML 999 ML IV (14:24)
[2023-09-30] MEDS: OLANZapine 5 mg TABLET PO (14:24)
[2023-09-30 15:08] VITALS: BP 118/74; PULSE 73
--- NOTE | 2023-09-30 15:26 | PC.NURSE ---
Notified Aiyana Darden of low BP and nausea and vomiting for past two days. NS bolus and olanzapine given per order.
== END 2023-10-03 23:59 | disposition home or self-care (01) ==
PROVIDERS: PCP Family Medicine; Visit Provider Internal Medicine
DX: Z53.9 Procedure and treatment not carried out, unspecified reason (principal); Z45.1 Encounter for adjustment and management of infusion pump; C25.9 Malignant neoplasm of pancreas, unspecified; C34.91 Malignant neoplasm of unspecified part of right bronchus or lung
CPT/HCPCS: 36415; 80053; 85025; 86301; 96360; 96367; 96368; 96375; 96413; 96415; 96416; 96417; 96523; 99214; 99215; J0461; J0640; J1100; J2469; J7040; J7060; J9190; J9206; J9263

== ENCOUNTER 2023-10-02 17:47 | Emergency (ER) | payer MEDICARE, OTHER, SELFPAY ==
[2023-10-02 17:48] VITALS: BP 108/63; PULSE 91; RESP 18; TEMP 37.2; O2SAT 96
--- NOTE | 2023-10-02 18:22 | XRR_ITS ---
PROCEDURE INFORMATION: Exam: XR Chest Exam date and time: 10/02/2023 6:39 PM Age: 78 years old Clinical indication: Cough and shortness of breath; Prior surgery; Surgery date: 6+ months; Surgery type: RT lumpectomy; Patient HX: SOB; Cough; Current pancreatic CA ; HX RT breast CA, RT lung CA TECHNIQUE: Imaging protocol: Radiologic exam of the chest. Views: 1 view. COMPARISON: CT chest abd w con*[id number] 09/21/2023 8:35 AM FINDINGS: Lungs: Subtle opacities in the periphery of the right lung base seen to better advantage on the chest CT dated 09/21/2023. No new focal consolidation. Pleural spaces: Unremarkable. No pleural effusion. No pneumothorax. Heart/Mediastinum: Unremarkable. No cardiomegaly. Bones/joints: Unremarkable. XR/XR chest 1V portable [id number] IMPRESSION: Subtle opacities in the periphery of the right lung base seen to better advantage on the chest CT dated 09/21/2023. No new focal consolidation.
--- NOTE | 2023-10-02 18:22 | ECG_ITS ---
[facility] Test Date: 2023-10-02 Pat Name: Dina Abrams Department: Room: Gender: Female Volunteer Specialist: : [id number] Requested By: Matteo Rueda Order Number: [id number] Dangelo MD: Mendoza Villegas M.D. Measurements Intervals [place] Rate: 93 P: 33 ID: [id number] QRS: 1 QRSD: 89 T: 71 QT: 351 QTc: 439 Interpretive Statements SINUS RHYTHM LOW QRS VOLTAGE IN PRECORDIAL LEADS [QRS DEFLECTION < 1.0 mV IN CHEST LEADS] NONSPECIFIC T-WAVE ABNORMALITY Compared to ECG 10/12/2017 12:37:39 T-wave abnormality now present Myocardial infarct finding no longer present Electronically Signed On 10-03-2023 18:36:15 CDT by Mendoza Villegas M.D. [id number]
--- NOTE | 2023-10-02 18:47 | ED_ITS ---
HPI - Weakness 2 General: Chief complaint: Weakness Stated complaint: WEAKNESS; LOW BLOOD PRESSURE Time Seen by Provider: 10/02/23 18:05 History of Present Illness: 78-year-old female with a history of sta ge IV pancreatic cancer with metastatic disease to her liver. She presents with generalized weakness. She states that she had her first chemotherapy induction on Wednesday, and had to come back to the oncology clinic on and get fluids due to generalized weakness. She had fallen in the parking lot that day, and bruised her left leg. She was told if her blood pressure goes below 110/70, she needed to come in for fluids. She has not had her antihypertensive medication in the last 48 hours, and despite this, her blood pressure was low at home. Her notes that she has been more weak at home in the last 24 hours or so. He believes she is not drinking enough fluids. She has only urinated once today. No fever. She did have some diarrhea earlier today. Associated symptoms: Reports chills and nausea; Denies chest pain, fever(s) or vomiting Review of Systems 2 Const: Reports: chills; Denies: fever(s) ENMT: Denies: throat pain Card: Denies: chest pain Resp: Denies: dyspnea, productive cough or non-productive cough GI: Reports: nausea and diarrhea; Denies: abdominal pain or vomiting PFSH ED 2 PFSH: Medical History Adenocarcinoma of pancreas, stage 4 Lesion of pancreas Liver lesion Ductal carcinoma in situ of right breast COPD (chronic obstructive pulmonary disease) Hx of diabetes mellitus Hx of primary hypertension History of COPD Lung nodule Surgical History Hx of carpal tunnel repair Hx of hysterectomy Hx of bladder repair surgery Hx of eye surgery Hx of cataract extraction Social History Smoking and tobacco/nicotine status: current every day tobacco/nicotine user (1 ppd) cigarettes Packs smoked per day: 1 Years cigarettes smoked: 60 Second hand smoke exposure: Yes Alcohol intake: never Substance/Drug Use: never Lives independently: Yes Household members: spouse Marital status: Current occupational status: retired Do you think of yourself as: Straight/Heterosexual Current gender identity: Female Physical Exam 2 Const: GENERAL APPEARANCE: cooperative and frail appearing HENMT: COMMON NORMALS: normocephalic, atraumatic and Normal external nose present HEAD & SCALP: normocephalic and atraumatic FACE & SINUS: normal facial exam and face symmetric NOSE: Normal external nose present Eye: COMMON NORMALS: Equal, round and reactive pupils present and EOMs intact bilaterally PUPIL: Yes Equal, round and reactive pupils present Neck/C-Spine: GENERAL: Yes trachea midline Chest: CHEST: Yes Symmetrical chest wall rise Resp: COMMON NORMALS: normal respiratory effort, No retractions, No use of accessory muscles and clear to auscultation bilaterally AUSCULTATION: clear to auscultation bilaterally Cardio: COMMON NORMALS: regular rate and regular rhythm RATE: regular rate RHYTHM: regular rhythm GI: COMMON NORMALS: Normal to inspection, nondistended, normoactive bowel sounds present Extremity: COMMON NORMALS: no pedal edema Neuro: SHARI COMA SCALE: document GCS findings [place] coma scale eye opening: Spontaneous Shari coma scale verbal response: Orientated Shari coma scale motor response: Obey commands [place] coma scale total score: 15 S ENSORY EXAM: Yes extremities (intact) Psych: COMMON NORMALS: speech normal SPEECH: Yes normal speech Skin: COMMON NORMALS: no rashes or lesions noted GENERAL SKIN EXAM: no rashes or lesions noted Course 2 Vital Signs: Vital signs: Vital Signs Temperature 98.9 F 10/02/23 17:48 Pulse Rate 95 10/02/23 20:48 Respiratory Rate 18 10/02/23 20:16 Blood Pressure 157/84 10/02/23 20:16 Pulse Oximetry 97 10/02/23 20:48 Oxygen Delivery Me thod Room Air 10/02/23 20:48 Oxygen Flow Rate 2 10/02/23 17:48 MDM - Weakness Medical Decision Making Patient presents with decreased oral intake, lowering of blood pressure at home, and only 1 urination today. Her postvoid residual here was greater than 400 mL by bladder scan. When attempting to go, and only few drops. Morales was placed with output of only 500 mL. No acute changes by imaging chest x-ray. Her hemoglobin is stable. Bilirubin is roughly stable. She is not neutropenic. Because of obstruction and absence of bleeding is unknown. She does have whites in her urine. Should be treated as a urinary tract infection. There is increased stool burden in the colon by KUB. She will continue stool softeners. Close outpatient follow-up with oncology for Morales removal in a couple of days. Lab Data 10/02/23 19:15 10/02/23 19:15 Radiology Impressions Chest X-Ray 10/02/23 18:22 IMPRESSION: Subtle opacities in the periphery of the right lung base seen to better advantage on the chest CT dated 09/21/2023. No new focal consolidation. KUB X-Ray 10/02/23 20:20 IMPRESSION: No acute findings. Laboratory Results WBC 7.35 10^3/uL (3.29-11.43) 10/02/23 19:15 RBC 3.66 10^6/uL (3.85-5.65) L 10/02/23 19:15 Hgb 10.90 g/dL (11.27-16.99) L 10/02/23 19:15 Hct 33.5 % (36-47) L 10/02/23 19:15 MCV 91.5 fl (85-98) 10/02/23 19:15 MCH 29.8 pg (27-33) 10/02/23 19:15 MCHC 32.5 g/dL (30-55) 10/02/23 19:15 RDW 14.4 % (12.1-15.1) 10/02/23 19:15 Plt Count 102 10^3/cmm (157-399) L 10/02/23 19:15 MPV 10.3 fL (7.4-10.4) 10/02/23 19:15 Neut % (Auto) 94.4 % 10/02/23 19:15 Lymph % (Auto) 3.4 % 10/02/23 19:15 Edmunds % (Auto) 0.8 % 10/02/23 19:15 Eos % (Auto) 0.1 % 10/02/23 19:15 Baso % (Auto) 0.3 % 10/02/23 19:15 Neut # (Auto) 6.94 10^3/uL (1.8-7.7) 10/02/23 19:15 Lymph # (Auto) 0.3 10^3/uL (0.8-4.8) L 10/02/23 19:15 Edmunds # (Auto) 0.1 10^3/uL (0.2-0.9) L 10/02/23 19:15 Eos # (Auto) 0.0 10^3/uL (0.0-0.8) 10/02/23 19:15 Baso # (Auto) 0.0 10^3/uL (0.0-0.1) 10/02/23 19:15 Nucleated RBC % (auto) 0 % 10/02/23 19:15 Nucleated RBCs # 0.0 /100WBC 10/02/23 19:15 PT 20.20 SECONDS (12.1-14.9) H 10/02/23 19:15 INR 1.66 (0.8-1.2) H 10/02/23 19:15 APTT 28.5 SECONDS (23.9-36.7) 10/02/23 19:15 Sodium 134 mmol/L (136-145) L 10/02/23 19:15 Potassium 4.4 mmol/L (3.5-5.1) 10/02/23 19:15 Chloride 92 mmol/L (98-107) L 10/02/23 19:15 Carbon Dioxide 30 mmol/L (22-29) H 10/02/23 19:15 Anion Gap 16.4 (5-19) 10/02/23 19:15 BUN 23 mg/dL (8-23) 10/02/23 19:15 Creatinine 0.9 mg/dL (0.5-0.9) 10/02/23 19:15 GFR Calculation Not Reportable 10/02/23 19:15 Glucose 186 mg/dL (65-115) H 10/02/23 19:15 Calculated Osmolality 287 mOsm/kg (285-295) 10/02/23 19:15 Calcium 9.0 mg/dL (8.5-10.5) 10/02/23 19:15 Total Bilirubin 1.7 mg/dL (0.15-1.2) H 10/02/23 19:15 AST 39 U/L (0-32) H 10/02/23 19:15 ALT 20 U/L (0-33) 10/02/23 19:15 Alkaline Phosphatase 244 U/L (35-105) H 10/02/23 19:15 C-Reactive Protein 82.3 mg/L (0.0-4.9) H 10/02/23 19:15 Total Protein 7.1 g/dL (6.6-8.7) 10/02/23 19:15 Albumin 3.3 g/dL (3.5-5.2) L 10/02/23 19:15 Globulin 3.8 g/dL (1.3-4.6) 10/02/23 19:15 Procalcitonin 0.43 ng/mL (0-0.5) 10/02/23 19:15 Urine Color Dark yellow (Yellow) 10/02/23 20:11 Urine Appearance Clear (CLEAR) 10/02/23 20:11 Urine pH 6 (5-7) 10/02/23 20:11 Ur Specific [place] 1.015 (1.005-1.030) 10/02/23 20:11 Urine Protein Trace (Negative) 10/02/23 20:11 Urine Glucose (UA) Norm (Normal) 10/02/23 20:11 Urine Ketones Negative (Negative) 10/02/23 20:11 Urine Blood Neg (Negative) 10/02/23 20:11 Urine Nitrate Negative (Negative) 10/02/23 20:11 Urine Bilirubin 1+ (Negative) H 10/02/23 20:11 Urine Urobilinogen 4 mg/dL (Negative) H 10/02/23 20:11 Ur Leukocyte Esterase Trace (Negative) H 10/02/23 20:11 Urine RBC 0-4 /hpf (0-2) H 10/02/23 20:11 Urine WBC 5-10 /hpf (0-5) H 10/02/23 20:11 Ur Squamous Epith Cells 0-4 /hpf (0-5) H 10/02/23 20:11 Amorphous Sediment Not Reportable 10/02/23 20:11 Urine Bacteria Trace /hpf (NONE) 10/02/23 20:11 All radiology interpretation(s) finalized by discharge Discharge Plan Discharge Patient Disposition: Home Clinical Impression: Acute UTI, Acute urinary retention Condition: Stable Prescriptions: New cefdinir 300 mg capsule 300 mg PO BID Qty: 14 0RF No Action lidocaine 5 % adhesive patch,medicated 1 patch TOPICAL DAILY PRN (Reason: Pain) Rx Instructions: leave on most painful area for up to 12 hrs then off for 12 hours prochlorperazine maleate [Compazine] 10 mg tablet 10 mg PO Q6H PRN (Reason: mild nausea and/or vomiting) Qty: 30 3RF lorazepam 1 mg tablet 0.5 - 1 mg PO Q8H PRN (Reason: severe nausea) Qty: 30 3RF (DME) Diabetic Shoes with 3 inserts See Rx Instructions .Route .MEDSUPPLY Qty: 1 0RF Rx Instructions: As directed to the shoe balaji furosemide 40 mg tablet 40 mg PO QAM Qty: 30 0RF Eliquis 5 mg tablet 10 mg PO BID Qty: 60 2RF Rx Instructions: Take 2 tabs twice daily for 7 days then 1 tab twice daily after oxycodone 5 mg tablet 5 mg PO Q8H PRN (Reason: pain) 30 Days Qty: 90 0RF morphine 15 mg tablet extended release 15 mg PO Q12H 30 Days Qty: 60 0RF sertraline 50 mg tablet 50 mg PO DAILY@18 nebivolol [Bystolic] 5 mg tablet 5 mg PO DAILY@18 amlodipine 5 mg Tablet 5 mg PO DAILY@18 Januvia 100 mg Tablet 100 mg PO QAM gabapentin 300 mg Capsule 300 mg PO BEDTIME@21 omeprazole 20 mg capsule,delayed release(DR/EC) 20 mg PO DAILY PRN (Reason: Heartburn) metformin 500 mg tablet extended release 24 hr 1,000 mg PO QPM Trelegy Ellipta 100-62.5-25 mcg Blister With Device 1 inh INHALATION DAILY@09 acetaminophen 500 mg Tablet 500 mg PO DAILY@1030 diclofenac sodium 1 % gel 2 g TOPICAL QID PRN (Reason: Pain) aspirin 81 mg tablet,delayed release (DR/EC) 81 mg PO QAM levalbuterol HCl [Xopenex] 1.25 mg/3 mL solution for nebulization 1.25 mg inhalation Q4H PRN (Reason: shortness of breath or wheezing) Discharge Orders: Discharge ED (Routine); Ordered 10/02/23 Ordered By: Matteo Bowles Referrals: Peg Escoto MD [Hospitalist] - 1-3 days Darrius Sim MD [Primary Care Provider] - Patient Instructions: Morales Catheter Placement and Care (ED), Acute Urinary Retention in Women (ED), Opioid Safety, Pain Management, Urinary Tract Infection - Women Activity Restrictions/Additional Instructions: Return for fever greater than 100 despite 2-3 doses of antibiotics, worsening weakness, lethargy, mental status changes, any other concerning symptoms. Call your oncologist on Wednesday for a follow-up appointment. Let them know that we placed a Morales catheter, and you will need it pulled in 48 to 72 hours. Coding Level of Care Code ED Lead Technologist In [employer] for Hubert Victoria
[2023-10-02 19:24] LABS: Basophils % 0.3 %; Eosinophils % 0.1 %; Hematocrit 33.5 % (36-47); Lymphocytes # 0.3 10^3/uL (0.8-4.8); Lymphocytes % 3.4 %; Mean Corpuscular HGB Conc 32.5 g/dL (30-55); Mean Corpuscular Hemoglobin 29.8 pg (27-33); Mean Corpuscular Volume 91.5 fl (85-98); Mean Platelet Volume 10.3 fL (7.4-10.4); Monocytes # 0.1 10^3/uL (0.2-0.9); Monocytes % 0.8 %; Neutrophils # 6.94 10^3/uL (1.8-7.7); Neutrophils % 94.4 %; Nucleated Red Blood Cells % 0 %; Platelet Count 102 10^3/cmm (157-399); Red Blood Count 3.66 10^6/uL (3.85-5.65); Red Cell Distribution Width 14.4 % (12.1-15.1); White Blood Count 7.35 10^3/uL (3.29-11.43)
[2023-10-02] MEDS: sodium chloride 0.9% 1,000 ML 999 ML IV ×2 (19:33→20:31)
[2023-10-02 19:35] LABS: INR 1.66 (0.8-1.2); Partial Thromboplastin Time 28.5 SECONDS (23.9-36.7)
[2023-10-02 19:40] VITALS: BP 130/82; PULSE 87; RESP 18; O2SAT 99
[2023-10-02 19:47] LABS: Alanine Aminotransferase 20 U/L (0-33); Albumin Level 3.3 g/dL (3.5-5.2); Alkaline Phosphatase 244 U/L (35-105); Anion Gap 16.4 (5-19); Aspartate Amino Transferase 39 U/L (0-32); Blood Urea Nitrogen 23 mg/dL (8-23); C Reactive Protein 82.3 mg/L (0.0-4.9); Carbon Dioxide 30 mmol/L (22-29); Chloride 92 mmol/L (98-107); Creatinine Clr Calc Pharmacy 52.7142; Globulin 3.8 g/dL (1.3-4.6); Glucose 186 mg/dL (65-115); Osmolality Calculated 287 mOsm/kg (285-295); Potassium 4.4 mmol/L (3.5-5.1); Sodium 134 mmol/L (136-145); Total Bilirubin 1.7 mg/dL (0.15-1.2); Total Protein 7.1 g/dL (6.6-8.7)
[2023-10-02 19:48] LABS: Procalcitonin 0.43 ng/mL (0-0.5)
[2023-10-02 20:16] VITALS: BP 157/84; PULSE 92; RESP 18; O2SAT 97
--- NOTE | 2023-10-02 20:20 | XRR_ITS ---
PROCEDURE INFORMATION: Exam: XR Abdomen Exam date and time: 10/02/2023 8:23 PM Age: 78 years old Clinical indication: Abdominal tenderness and bloating; Patient HX: Urinary retention; Weakness; Pancreatic CA TECHNIQUE: Imaging protocol: Radiologic exam of the abdomen. Views: Frontal supine view of the abdomen. 1 View. COMPARISON: CT chest abd w con*[id number] 09/21/2023 8:35 AM FINDINGS: Gastrointestinal tract: Normal. No bowel dilation. Bones/joints: Unremarkable. XR/XR KUB portable [id number] IMPRESSION: No acute findings.
[2023-10-02 20:35] LABS: Add Urine Microscopic? YES; Bacteria Urine TRACE /hpf; Bilirubin Urine 1+ (Negative); Blood Urine Neg (Negative); Glucose Urine UA Norm (Normal); Ketones Urine Negative (Negative); Leukocyte Esterase Urine Trace (Negative); Nitrate Urine Negative (Negative); Protein Urine Trace (Negative); RBC Urine 0-4 /hpf (0-2); Specific Gravity, Urine 1.015 (1.005-1.030); Squamous Epithelial Cell Urine 0-4 /hpf (0-5); Urine Appearance Clear (CLEAR); Urine Color Dark Yellow (Yellow); Urobilinogen Urine 4 mg/dL (Negative); pH Urine 6 (5-7)
[2023-10-02 20:48] VITALS: PULSE 95; O2SAT 97
[2023-10-02] MEDS: cefdinir 300 MG CAPSULE PO (21:20)
== END 2023-10-02 21:35 | disposition home or self-care (01) ==
PROVIDERS: Emergency Provider Emergency Medicine; PCP Family Medicine
DX: N39.0 Urinary tract infection, site not specified (principal); R33.9 Retention of urine, unspecified; Z79.01 Long term (current) use of anticoagulants; Z79.82 Long term (current) use of aspirin; Z79.84 Long term (current) use of oral hypoglycemic drugs; J44.9 Chronic obstructive pulmonary disease, unspecified; E11.9 Type 2 diabetes mellitus without complications; I10 Essential (primary) hypertension; F17.210 Nicotine dependence, cigarettes, uncomplicated
CPT/HCPCS: 51702; 51798; 71045; 74018; 80053; 81001; 84145; 85025; 85610; 85730; 86140; 93005; 96360; 96361; 99285; J7030

== ENCOUNTER 2023-10-05 09:30 | Oncology outpatient (recurring) (ONCR) | payer MEDICARE, OTHER, SELFPAY ==
[2023-10-04] MEDS: sodium chloride 0.9% 1,000 ML 999 ML IV (14:16)
[2023-10-04 14:28] VITALS: BP 139/80; PULSE 89; O2SAT 97
== END 2023-10-19 23:59 | disposition home or self-care (01) ==
PROVIDERS: PCP Family Medicine; Visit Provider Internal Medicine
DX: C34.81 Malignant neoplasm of overlapping sites of right bronchus and lung (principal); Z85.3 Personal history of malignant neoplasm of breast; E11.9 Type 2 diabetes mellitus without complications; Z79.84 Long term (current) use of oral hypoglycemic drugs; C78.7 Secondary malignant neoplasm of liver and intrahepatic bile duct; R94.8 Abnormal results of function studies of other organs and systems; Z87.891 Personal history of nicotine dependence; R10.9 Unspecified abdominal pain; Z92.3 Personal history of irradiation; Z51.0 Encounter for antineoplastic radiation therapy
CPT/HCPCS: 51702; 51798; 96360; 99213; J1642; J7030

== ENCOUNTER 2023-10-14 14:08 | Outpatient (CLI) | payer MEDICARE, OTHER, SELFPAY ==
[2023-10-14 14:38] LABS: SARS Covid-2 Antigen negative (Negative)
== END 2023-10-14 14:09 | disposition home or self-care (01) ==
LOC: LAB 14:09
PROVIDERS: PCP Family Medicine; Visit Provider Family Medicine
DX: C25.9 Malignant neoplasm of pancreas, unspecified (principal)
CPT/HCPCS: 87426